=== PATIENT | male | born 1940 | race Caucasian/White ===

== ENCOUNTER 2016-07-20 05:18 | Inpatient (IN) | payer MEDICARE, BC ==
[2016-07-20] MEDS: Lactated Ringers 1,000 ML IV SCH ×2 (06:13→11:42)
[2016-07-20] MEDS ORDERED: Thrombin (Bovine) 5,000 Unit Kit ONE (06:53)
[2016-07-20] MEDS ORDERED: Bupivacaine 0.5%/EPINEPHrine 1:200,000 50 ML MDV ONE (06:54)
[2016-07-20] MEDS ORDERED: Povidone-Iodine 10% Soln 118.25 ML Bottle ONE (06:54)
[2016-07-20] MEDS ORDERED: Dexamethasone 4 MG/ML SDV ONE (07:16)
[2016-07-20] MEDS ORDERED: fentaNYL 250 MCG/5 ML SDV ONE ×2 (07:16→08:26)
[2016-07-20] MEDS ORDERED: Neostigmine Methylsulfate 1 MG/ML 5 ML Syringe ONE (07:16)
[2016-07-20] MEDS ORDERED: Propofol 200 MG/20 ML SDV ONE (07:16)
[2016-07-20] MEDS ORDERED: Ondansetron 4 MG/2 ML SDV ONE ×2 (07:16→08:34)
[2016-07-20] MEDS ORDERED: Rocuronium 50 MG/5 ML Vial ONE ×2 (07:16→07:43)
[2016-07-20] MEDS ORDERED: ceFAZolin 2 GM in Premix Bag 1 BAG IV ONE (07:30)
[2016-07-20] MEDS ORDERED: Lactated Ringers 1,000 ML ONE (08:09)
[2016-07-20] MEDS ORDERED: Magnesium Hydroxide 400 MG/5 ML Susp 30 ML Cup PO PRN (10:38)
[2016-07-20] MEDS ORDERED: diphenhydrAMINE 25 MG Cap PO PRN (10:38)
[2016-07-20] MEDS ORDERED: Naloxone 0.4 MG/ML SDV IVPUSH PRN (10:38)
[2016-07-20] MEDS ORDERED: Sennosides 8.6 MG Tab PO PRN (10:38)
[2016-07-20] MEDS ORDERED: Aluminum Hydroxide/Magnesium Hydroxide/Simethicone Susp 30 ML Cup PO PRN (10:38)
[2016-07-20] MEDS ORDERED: Zolpidem 5 MG Tab PO PRN (10:38)
[2016-07-20] MEDS ORDERED: ceFAZolin 2 GM in Sodium Chloride 0.9% 50 ML IV SCH ×2 (10:45→14:00)
[2016-07-20] MEDS ORDERED: fentaNYL 100 MCG/2 ML SDV IVPUSH ONE (10:48)
[2016-07-20] MEDS ORDERED: Meperidine PF 100 MG/ML Syringe IM ONE (10:49)
[2016-07-20] MEDS ORDERED: Morphine 4 MG/ML Syringe IVPUSH ONE (11:09)
[2016-07-20] MEDS: Acetaminophen/oxyCODONE 325-5 MG Tab PO PRN ×2 (12:35→17:09)
[2016-07-20] MEDS: Acetaminophen 650 MG in Premix Bag 1 BAG IV PRN (14:45)
--- NOTE | 2016-07-20 14:54 | OR ---
DATE OF PROCEDURE: 07/20/2016 PREOPERATIVE DIAGNOSIS: Central foraminal stenosis, C5-C6 and C6-C7. POSTOPERATIVE DIAGNOSIS: Central foraminal stenosis, C5-C6 and C6-C7. PROCEDURES: 1. Anterior cervical diskectomy and fusion, C5-C6 and C6-C7. 2. Interbody device placement with integrated plate, C5-C6 and C6-C7. 3. Use of operating microscope. ANESTHESIA: General endotracheal intubation. FLUIDS: Lactated Ringer solution. ESTIMATED BLOOD LOSS: 25 mL. COMPLICATIONS: None. SPECIMEN: None. DISCHARGE DISPOSITION: Stable to PACU. 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 INDICATIONS FOR THE PROCEDURE: The patient is well known to me, seen in the previous fall. He had undergone extensive nonoperative treatment. Preoperative imaging confirmed the above- mentioned diagnosis. Risks and benefits of the procedure were explained to the patient. Informed consent was obtained. DETAILS OF PROCEDURE: The patient was seen preoperatively by myself and the anesthesia staff in the preoperative holding area where the operative site was marked. He was brought to the operative suite by the anesthesia staff where general anesthesia was administered. Preoperative neuromonitoring leads were placed. Sterile Colon catheter was placed which was removed at the end of the case. The fluoroscopy unit as well as the operating microscope was then draped in a sterile manner. The patient's hair was clipped and then he was prepped and draped in a sterile manner. Time-out was called identifying the correct patient, correct procedure, the correct site, and antibiotics were begun with an appropriate period of time. Lateral fluoroscopy was then used to identify the C6-C7 disk space level. An incision was made in oblique fashion just starting at the medial edge of the sternocleidomastoid going medially approximately 3 cm. This was carried down to the subcutaneous layer and a small Weitlaner was used for traction. The Bovie electrocautery unit was used to incise the platysma. I then used blunt dissection to go down to the prevertebral space in medial to the carotid sheath. The Cloward was then used for retraction, I then identified the C5-C6 space under fluoroscopy and then went to the C6-C7 space. We then used a Shadow-Line retractor. I then cleared the disk space anteriorly and removed some osteophytes with a rongeur. I then used a knife to incise the disk space and then removed as much of as I could with the pituitary. Other bleeding was controlled by bipolar cautery as well as thrombin-soaked Gelfoam and FloSeal. I then used a curette to remove more of the disk as well as Kerrison rongeurs and pituitaries and then went down to the posterior osteophytes and then went through the posterior lips of the vertebral bodies down to the posterior longitudinal ligament. At that point, I then applied 2 small thrombin- soaked Gelfoam and then moved up to the C5-C6 level, did the same exposure down to the posterior longitudinal ligament. I then went back down to the C6-C7 level, exposed, and then used the operating microscope to remove some more bone for better exposure as well as and placed endplate carpentry for interbody placement. I then went through the posterior longitudinal ligament with a curette and then removed the remainder of the posterior longitudinal ligament as well as the lips of the vertebral bodies with a #2 Kerrison. I went up bilaterally with a 3-0 angled curette and then a nerve hook to confirm that the foramina were opened. I did with the obtuse disk material on the left side at both levels. After this had been accomplished and bleeding had been controlled, I then trialed up to an 8 and inserted an 8 implant at C6-C7 and then placed two 16 mm screws at C6-C7. After this had been accomplished, I performed the same procedure at the C5-C6 level except I placed a 7 implant with 14 mm screws. After this had been done, I took my final films and then copiously irrigated with 2 L of Betadine infused irrigation. I then controlled the bleeding under the longus colli medial edge with bipolar electrocautery. I then inserted the remainder with my FloSeal and then tapped it away with a Ray-Amaris. I then placed the drain going out of the lateral aspect of the wound. I closed the platysma with three 2-0 interrupted sutures, followed by Monocryl subcuticular suture, followed by Steri-Strips and then a sterile dressing with an OpSite. The patient was allowed to awaken from general anesthesia. The Colon was removed. Neuromonitoring leads were removed and then he was allowed to go to the PACU in stable condition. Mino Rivera DO /[id number]
--- NOTE | 2016-07-20 16:55 | PCM.PN ---
- General Info Date of Service: 07/20/16 Functional Status: Reports: pain controlled, ambulating - Review of Systems General: Denies: Weakness Musculoskeletal: Reports: neck pain Neurological: Denies: Numbness, Tingling Systems Review Comment:: no acute events since surgery. Moderate posterior neck pain that has been stable since surgery. No paresthesias in the upper or lower extremities. Vital signs have been stable. No difficulty with swallowing. He has been up and walk around without difficulty. - Patient Data Vitals - most recent: Last Vital Signs Temp 36.2 C 07/20/16 15:14 Pulse 60 07/20/16 15:14 Resp 16 07/20/16 15:14 BP 109/76 07/20/16 15:14 Pulse Ox 96 07/20/16 15:14 Weight - most recent: 133.129 kg I&O - last 24 hours: Intake & Output 07/20/16 07/20/16 07/20/16 06:59 14:59 22:59 Intake Total 1800 Output Total 0 Balance 1800 Med Orders - Current: Current Medications Al Hydroxide/Mg Hydroxide (Mag-Al Plus) 15 ml PO Q4H PRN PRN Reason: Indigestion Diazepam (Valium) 5 mg IVPUSH Q6H PRN PRN Reason: Spasms Diphenhydramine HCl (Benadryl) 25 mg PO Q4H PRN PRN Reason: Itching Lactated Ringer's (Ringers, Lactated) 1,000 mls @ 0 mls/hr IV ASDIRECTED [facility] PRN Reason: KVO Last Admin: 07/20/16 11:42 Dose: 25 mls/hr Acetaminophen 650 mg/ Premix 65 mls @ 400 mls/hr IV Q4H PRN PRN Reason: Pain Stop: 07/21/16 10:39 Last Admin: 07/20/16 14:45 Dose: 400 mls/hr Cefazolin Sodium 2 gm/ Sodium (Chloride) 50 mls @ 100 mls/hr IV Q8H [facility] Magnesium Hydroxide (Milk Of Magnesia) 30 ml PO DAILY PRN PRN Reason: Constipation Morphine Sulfate (Morphine) 4 mg IVPUSH Q2H PRN PRN Reason: Pain Non-Formulary Medication (Citalopram Hydrobromide [Celexa]) 20 mg PO DAILY [facility] Oxycodone/Acetaminophen (Percocet 325-5 Mg) 1 tab PO Q6H PRN PRN Reason: Pain Last Admin: 07/20/16 12:35 Dose: 1 tab Primidone (Mysoline) 100 mg PO BID [facility] Senna (Senna) 8.6 mg PO BID PRN PRN Reason: Constipation Simvastatin (Zocor) 20 mg PO BEDTIME [facility] Zolpidem Tartrate (Ambien) 5 mg PO BEDTIME PRN PRN Reason: Sleep Discontinued Medications Bupivacaine HCl/Epinephrine Bitart (Marcaine 0.5%/Epinephrine 1:200,000) Confirm Administered Dose 50 ml .ROUTE .STK-MED ONE Stop: 07/20/16 06:55 Dexamethasone (Dexamethasone) Confirm Administered Dose 4 mg .ROUTE .STK-MED ONE Stop: 07/20/16 07:17 Fentanyl (Sublimaze) Confirm Administered Dose 500 mcg .ROUTE .STK-MED ONE Stop: 07/20/16 07:17 Fentanyl (Sublimaze) Confirm Administered Dose 250 mcg .ROUTE .STK-MED ONE Stop: 07/20/16 08:27 Fentanyl (Sublimaze) 100 mcg IVPUSH ONETIME ONE Stop: 07/20/16 10:49 Last Admin: 07/20/16 10:57 Dose: 100 mcg Glycopyrrolate () Confirm Administered Dose 1 mg .ROUTE .STK-MED ONE Stop: 07/20/16 07:17 Cefazolin Sodium/Dextrose 2 gm (/ Premix) 50 mls @ 100 mls/hr IV ONETIME ONE Stop: 07/20/16 07:59 Last Admin: 07/20/16 07:18 Dose: 100 mls/hr Lactated Ringer's (Ringers, Lactated) Confirm Administered Dose 1,000 mls @ as directed .ROUTE .STK-MED ONE Stop: 07/20/16 08:10 Cefazolin Sodium 2 gm/ Sodium (Chloride) 50 mls @ 100 mls/hr IV Q8H [facility] Last Admin: 07/20/16 13:50 Dose: Not Given Meperidine HCl (Demerol) 100 mg IM ONETIME ONE Stop: 07/20/16 10:50 Last Admin: 07/20/16 10:58 Dose: 100 mg Morphine Sulfate (Morphine) 4 mg IVPUSH ONETIME ONE Stop: 07/20/16 11:10 Last Admin: 07/20/16 11:17 Dose: 4 mg Naloxone HCl (Narcan) 0.2 mg IVPUSH ONETIME PRN PRN Reason: Oversedation Stop: 07/20/16 10:39 Neostigmine Methylsulfate (Neostigmine) Confirm Administered Dose 5 mg .ROUTE .STK-MED ONE Stop: 07/20/16 07:17 Non-Formulary Medication (Simvastatin [Zocor]) 20 mg PO BEDTIME [facility] Ondansetron HCl (Zofran) Confirm Administered Dose 4 mg .ROUTE .STK-MED ONE Stop: 07/20/16 07:17 Ondansetron HCl (Zofran) Confirm Administered Dose 4 mg .ROUTE .STK-MED ONE Stop: 07/20/16 08:35 Povidone Iodine (Betadine 10% Soln) Confirm Administered Dose 1 ml .ROUTE .STK- MED ONE Stop: 07/20/16 06:55 Last Admin: 07/20/16 09:55 Dose: 30 ml Primidone (Mysoline) 100 mg PO BID [facility] Propofol (Diprivan 20 Ml) Confirm Administered Dose 200 mg .ROUTE .STK-MED ONE Stop: 07/20/16 07:17 Rocuronium [place] (Zemuron) Confirm Administered Dose 100 mg .ROUTE .STK-MED ONE Stop: 07/20/16 07:17 Rocuronium [place] (Zemuron) Confirm Administered Dose 50 mg .ROUTE .STK-MED ONE Stop: 07/20/16 07:44 Thrombin (Thrombin-Jmi) Confirm Administered Dose 10,000 unit .ROUTE .STK-MED ONE Stop: 07/20/16 06:54 Last Admin: 07/20/16 07:20 Dose: 10,000 unit - Exam Quality Assessment: No: supplemental oxygen General: alert, oriented, cooperative, no acute distress Neck: supple, other (anterior surgical site covered with dry intact dressing. He does have a drain in place with a small quantity of maroon blood draining) Lungs: Clear to auscultation, Normal respiratory effort Cardiovascular: Regular Rate, Regular Rhythm, No Murmurs Extremities: normal pulses, edema (mild pitting edema of left ankle, moderate pitting edema of right ankle) Skin: warm, dry Psy/Mental Status: alert, normal affect - Problem List Review Problem List Initiated/Reviewed/Updated: Yes - My Orders Last 24 Hours: My Active Orders 07/21/16 09:00 Citalopram Hydrobromide [Celexa] 20 mg PO DAILY - Plan Plan:: ASSESSMENT AND PLAN Status post cervical spine fusion - doing well postoperatively. Moderate pain but otherwise stable. No paresthesias. -Postop cares per surgical team Depression - chronic and stable. -Continue citalopram Status post gastric bypass surgery - no active issues. -Restart supplements when safe postoperatively Forest Singh M.D.
[2016-07-20] MEDS: ceFAZolin 2 GM in Sodium Chloride 0.9% 50 ML IV SCH ×2 (17:01→23:12)
[2016-07-20] MEDS: Acetaminophen/HYDROcodone 325-10 MG Tab PO PRN (20:18)
[2016-07-20] MEDS: Primidone 50 MG Tab PO SCH (20:19)
[2016-07-20] MEDS ORDERED: Primidone 50 MG Tab PO SCH (21:00)
[2016-07-20] MEDS ORDERED: Simvastatin 20 MG Tab PO SCH (21:00)
[2016-07-20] MEDS ORDERED: Non-Formulary Medication 1 Each (Simvastatin [Zocor] 20 MG) PO SCH ×2 (21:00)
[2016-07-20] MEDS: oxyCODONE 5 MG Tab PO PRN (21:21)
[2016-07-21] MEDS: oxyCODONE 5 MG Tab PO PRN ×2 (01:08→09:16)
[2016-07-21] MEDS: Morphine 4 MG/ML Syringe IVPUSH PRN ×3 (01:13→08:04)
[2016-07-21] MEDS: Acetaminophen 650 MG in Premix Bag 1 BAG IV PRN (02:46)
[2016-07-21] MEDS: Acetaminophen/HYDROcodone 325-10 MG Tab PO PRN ×2 (04:44→13:14)
[2016-07-21] MEDS: ceFAZolin 2 GM in Sodium Chloride 0.9% 50 ML IV SCH (08:06)
[2016-07-21] MEDS: Primidone 50 MG Tab PO SCH (08:18)
[2016-07-21] MEDS ORDERED: Non-Formulary Medication 1 Each (Citalopram Hydrobromide [Celexa] 20 MG) PO SCH (09:00)
[2016-07-21] MEDS ORDERED: Citalopram 20 MG Tab PO SCH (09:00)
[2016-07-21 10:47] VITALS: BP 123/79
--- NOTE | 2016-07-21 12:36 | PCM.DCSUM1 ---
Discharge Summary - Hospital Course Free Text/Narrative:: Matt is a 75 year old male who is POD 1 of a C5-C6, C6-C7 anterior discectomy and fusion. He is doing well. He noted some pain at night but has noted much improvement. He state that he is moving well with minimal pain at this time. He notes not other symptoms at this time. Pain is controlled with oral pain medication. He is receiving PT/OT and is tolerating well. - Discharge Data Discharge Date: 07/21/16 Discharge Disposition: Home, Self-Care 01 Condition: Good - Discharge Diagnosis/Problem(s) (1) Status post cervical spinal fusion SNOMED Code(s): 899194132, [id number] ICD Code: Z98.1 - ARTHRODESIS STATUS Status: Acute Current Visit: Yes Problem Details: C 5-6, C6-7 - Patient Summary/Data Consults: Consultations 07/20/16 10:38 Consult to Physician [CONS] Routine Consulting Provider: Forest Singh Call Completed to Consulting Physician: text Reason for Consult: med management OT Evaluation and Treatment [CONS] Routine Please Evaluate and Treat. OT Reason for Consult: Strengthening This query below is only for informational purposes and is not editable. PT Evaluation and Treatment [CONS] Routine Please Evaluate and Treat. PT Reason for Consult: Strengthening This query below is only for informational purposes and is not editable. - Patient Instructions Diet: Usual Diet as Tolerated Activity: As Tolerated, No Lifting Over 10 Pounds Driving: Do Not Drive Showering/Bathing: May Shower Wound/Incision Care: Keep Operative Site/Wound Site Clean and Dry Notify Provider of: Fever, Increased Pain, Swelling and Redness, Drainage, Nausea and/or Vomiting - Discharge Plan Prescriptions/Med Rec: oxyCODONE 5 mg PO Q6HR #120 tablet Home Medications: Home Meds Aspirin [Halfprin] 81 mg PO DAILY 02/03/15 [History] Cholecalciferol (Vitamin D3) [Vitamin D3] 2,000 unit PO DAILY 02/03/15 [History] Citalopram Hydrobromide [Celexa] 20 mg PO DAILY 02/03/15 [History] Cyanocobalamin (Vitamin B12) [Vitamin B12] 500 mcg PO DAILY 02/03/15 [History] Ferrous Sulfate 324 mg PO DAILY 02/03/15 [History] Hydrocodone/Acetaminophen [[place] 10-325] 1 tab PO Q4H PRN 02/03/15 [History] Multivitamin [Multi-Vitamin Daily] 1 tab PO DAILY 02/03/15 [History] Primidone [Mysoline] 100 mg PO BID 02/03/15 [History] Simvastatin [Zocor] 20 mg PO BEDTIME 02/03/15 [History] Calcium Citrate 200 mg PO DAILY 07/20/16 [History] Omeprazole Magnesium [Prilosec Otc] 20 mg PO DAILY 07/20/16 [History] Vitamin B Complex/Folic Acid [Vitamin B-100 Complex] 0.4 mg PO DAILY 07/20/16 [ History] oxyCODONE 5 mg PO Q6HR #120 tablet 07/21/16 [Rx] - Discharge Summary/Plan Comment Discharge Summary/Plan Comment: At this time the patient is doing well. He is to be discharged today. SUNITA drain was removed. New dressing was placed. He is to follow up with the ortho clinic in 1 month. He is to take his norco and oxycodone as prescribed. He was educated to increase fluids to avoid constipation. - Patient Data Vitals - Most Recent: Last Vital Signs Temp 36.8 C 07/21/16 10:40 Pulse 75 07/21/16 10:40 Resp 16 07/21/16 10:40 BP 123/79 07/21/16 10:40 Pulse Ox 93 L 07/21/16 10:40 Weight - Most Recent: 293 lb 7.987 oz I&O - Last 24 hours: Intake & Output 07/20/16 07/21/16 07/21/16 22:59 06:59 14:59 Intake Total 480 600 50 Output Total 25 40 Balance 455 560 50 Med Orders - Current: Current Medications Hydrocodone Bitart/Acetaminophen ([place] 325-10 Mg) 1 tab PO Q8H PRN PRN Reason: Pain Last Admin: 07/21/16 04:44 Dose: 1 tab Al Hydroxide/Mg Hydroxide (Mag-Al Plus) 15 ml PO Q4H PRN PRN Reason: Indigestion Citalopram Hydrobromide (Celexa) 20 mg PO DAILY [facility] Last Admin: 07/21/16 08:18 Dose: 20 mg Diazepam (Valium) 5 mg IVPUSH Q6H PRN PRN Reason: Spasms Diphenhydramine HCl (Benadryl) 25 mg PO Q4H PRN PRN Reason: Itching Lactated Ringer's (Ringers, Lactated) 1,000 mls @ 0 mls/hr IV ASDIRECTED [facility] PRN Reason: KVO Last Admin: 07/20/16 11:42 Dose: 25 mls/hr Cefazolin Sodium 2 gm/ Sodium (Chloride) 50 mls @ 100 mls/hr IV Q8H [facility] Last Admin: 07/21/16 08:06 Dose: 100 mls/hr Magnesium Hydroxide (Milk Of Magnesia) 30 ml PO DAILY PRN PRN Reason: Constipation Morphine Sulfate (Morphine) 4 mg IVPUSH Q2H PRN PRN Reason: Pain Last Admin: 07/21/16 08:04 Dose: 4 mg Oxycodone HCl (Oxycodone) 5 mg PO Q4H PRN PRN Reason: Pain Last Admin: 07/21/16 09:16 Dose: 5 mg Primidone (Mysoline) 100 mg PO BID [facility] Last Admin: 07/21/16 08:18 Dose: 100 mg Senna (Senna) 8.6 mg PO BID PRN PRN Reason: Constipation Last Admin: 07/20/16 21:21 Dose: 8.6 mg Simvastatin (Zocor) 20 mg PO BEDTIME [facility] Last Admin: 07/20/16 20:19 Dose: 20 mg Zolpidem Tartrate (Ambien) 5 mg PO BEDTIME PRN PRN Reason: Sleep Last Admin: 07/20/16 22:30 Dose: 5 mg Discontinued Medications Bupivacaine HCl/Epinephrine Bitart (Marcaine 0.5%/Epinephrine 1:200,000) Confirm Administered Dose 50 ml .ROUTE .STK-MED ONE Stop: 07/20/16 06:55 Dexamethasone (Dexamethasone) Confirm Administered Dose 4 mg .ROUTE .STK-MED ONE Stop: 07/20/16 07:17 Fentanyl (Sublimaze) Confirm Administered Dose 500 mcg .ROUTE .STK-MED ONE Stop: 07/20/16 07:17 Fentanyl (Sublimaze) Confirm Administered Dose 250 mcg .ROUTE .STK-MED ONE Stop: 07/20/16 08:27 Fentanyl (Sublimaze) 100 mcg IVPUSH ONETIME ONE Stop: 07/20/16 10:49 Last Admin: 07/20/16 10:57 Dose: 100 mcg Glycopyrrolate () Confirm Administered Dose 1 mg .ROUTE .STK-MED ONE Stop: 07/20/16 07:17 Cefazolin Sodium/Dextrose 2 gm (/ Premix) 50 mls @ 100 mls/hr IV ONETIME ONE Stop: 07/20/16 07:59 Last Admin: 07/20/16 07:18 Dose: 100 mls/hr Lactated Ringer's (Ringers, Lactated) Confirm Administered Dose 1,000 mls @ as directed .ROUTE .STK-MED ONE Stop: 07/20/16 08:10 Acetaminophen 650 mg/ Premix 65 mls @ 400 mls/hr IV Q4H PRN PRN Reason: Pain Stop: 07/21/16 10:39 Last Admin: 07/21/16 02:46 Dose: 400 mls/hr Cefazolin Sodium 2 gm/ Sodium (Chloride) 50 mls @ 100 mls/hr IV Q8H [facility] Last Admin: 07/20/16 13:50 Dose: Not Given Meperidine HCl (Demerol) 100 mg IM ONETIME ONE Stop: 07/20/16 10:50 Last Admin: 07/20/16 10:58 Dose: 100 mg Morphine Sulfate (Morphine) 4 mg IVPUSH ONETIME ONE Stop: 07/20/16 11:10 Last Admin: 07/20/16 11:17 Dose: 4 mg Naloxone HCl (Narcan) 0.2 mg IVPUSH ONETIME PRN PRN Reason: Oversedation Stop: 07/20/16 10:39 Neostigmine Methylsulfate (Neostigmine) Confirm Administered Dose 5 mg .ROUTE .STK-MED ONE Stop: 07/20/16 07:17 Non-Formulary Medication (Simvastatin [Zocor]) 20 mg PO BEDTIME [facility] Ondansetron HCl (Zofran) Confirm Administered Dose 4 mg .ROUTE .STK-MED ONE Stop: 07/20/16 07:17 Ondansetron HCl (Zofran) Confirm Administered Dose 4 mg .ROUTE .STK-MED ONE Stop: 07/20/16 08:35 Oxycodone/Acetaminophen (Percocet 325-5 Mg) 1 tab PO Q6H PRN PRN Reason: Pain Last Admin: 07/20/16 17:09 Dose: 1 tab Povidone Iodine (Betadine 10% Soln) Confirm Administered Dose 1 ml .ROUTE .STK- MED ONE Stop: 07/20/16 06:55 Last Admin: 07/20/16 09:55 Dose: 30 ml Primidone (Mysoline) 100 mg PO BID [facility] Propofol (Diprivan 20 Ml) Confirm Administered Dose 200 mg .ROUTE .STK-MED ONE Stop: 07/20/16 07:17 Rocuronium [place] (Zemuron) Confirm Administered Dose 100 mg .ROUTE .STK-MED ONE Stop: 07/20/16 07:17 Rocuronium [place] (Zemuron) Confirm Administered Dose 50 mg .ROUTE .STK-MED ONE Stop: 07/20/16 07:44 Thrombin (Thrombin-Jmi) Confirm Administered Dose 10,000 unit .ROUTE .STK-MED ONE Stop: 07/20/16 06:54 Last Admin: 07/20/16 07:20 Dose: 10,000 unit - Exam General: Reports: alert, oriented Cardiovascular: Reports: Regular Rate Extremities: Reports: no edema Skin: Reports: warm, dry, intact Wound/Incisions: Reports: healing well, dressing dry and intact, no drainage Neurological: Reports: no new focal deficit, normal gait, strength equal bilateral, reflexes equal bilateral Psy/Mental Status: Reports: alert, normal affect *Q Meaningful Use (DIS) - VTE *Q VTE Criteria *Q: - Stroke *Q Stroke Criteria *Q: - AMI *Q AMI Criteria *Q:
== END 2016-07-21 14:23 | disposition home or self-care (01) | DRG 473 ==
LOC: JP.MS 05:18 → JP.SDS 05:18 → EDSTATUS 07:30 → JP.MS 12:05
PROVIDERS: ADMIT Orthopaedic Surgery; ATTEND Orthopaedic Surgery
PROC: 0RG20A0 Fusion of 2 or more Cervical Vertebral Joints with Interbody Fusion Device, Anterior Approach, Anterior Column, Open Approach (ICD-10-PCS; principal; 2016-07-20)
PROC: 0RB30ZZ Excision of Cervical Vertebral Disc, Open Approach (ICD-10-PCS; principal; 2016-07-20)
DX: M48.02 Spinal stenosis, cervical region (principal); F32.9 Major depressive disorder, single episode, unspecified; Z79.891 Long term (current) use of opiate analgesic; Z98.84 Bariatric surgery status; K22.70 Barrett's esophagus without dysplasia; E55.9 Vitamin D deficiency, unspecified; G47.33 Obstructive sleep apnea (adult) (pediatric); Z87.891 Personal history of nicotine dependence; E78.00 Pure hypercholesterolemia, unspecified; Z96.651 Presence of right artificial knee joint; Z79.82 Long term (current) use of aspirin; Z88.1 Allergy status to other antibiotic agents
CPT/HCPCS: 76001; 97110-GP; 97116-GP; 97162-GP; 97165-GO; 97530-GP; 97535-GP; A9270-GY; C1713; J0131; J0690; J1100; J2175; J2270; J2405; J2704; J3010; J7050; J7120

== ENCOUNTER 2017-10-12 07:22 | Observation (INO) | payer MEDICARE, BC ==
[~2017-10-12 07:22] MED LIST: Povidone-Iodine 10% Soln 118.25 ML Bottle ONE
[2017-10-12] MEDS ORDERED: Acetaminophen 500 MG Tab PO ONE (07:30)
[2017-10-12] MEDS ORDERED: Scopolamine 1.5 MG Transdermal Patch TOP ONE (07:30)
[2017-10-12] MEDS ORDERED: ceFAZolin 2 GM in Sodium Chloride 0.9% 50 ML IV ONE (08:15)
[2017-10-12] MEDS ORDERED: ceFAZolin 2 GM in Premix Bag 1 BAG IV ONE (08:15)
[2017-10-12] MEDS: Scopolamine 1.5 MG Transdermal Patch TOP ONE ×2 (08:29→08:44)
[2017-10-12] MEDS: Acetaminophen 500 MG Tab PO ONE ×2 (08:29→08:43)
[2017-10-12] MEDS ORDERED: Ketamine 500 MG/5 ML MDV IV SCH (09:15)
[2017-10-12] MEDS ORDERED: Ropivacaine 49.25 ML, Ketorolac 30 MG, EPINEPHrine 0.5 MG, cloNIDine 80 MCG, Sodium Chl... INJECT ONE ×5 (09:15)
[2017-10-12] MEDS ORDERED: Propofol 200 MG/20 ML SDV ONE (09:29)
[2017-10-12] MEDS ORDERED: Midazolam 1 MG/ML 2 ML SDV ONE (09:29)
[2017-10-12] MEDS ORDERED: fentaNYL 100 MCG/2 ML SDV ONE (09:29)
[2017-10-12] MEDS ORDERED: Bupivacaine 0.75%/D5W 2 ML Amp ONE (09:31)
[2017-10-12] MEDS: Tranexamic Acid 1,000 MG in Sodium Chloride 0.9% 50 ML IV SCH ×2 (10:13→11:45)
[2017-10-12] MEDS ORDERED: Ketorolac 30 MG/ML SDV IVPUSH PRN (11:33)
[2017-10-12] MEDS ORDERED: Ondansetron 4 MG/2 ML SDV IVPUSH PRN (11:33)
[2017-10-12] MEDS ORDERED: diphenhydrAMINE 50 MG/ML SDV IVPUSH PRN (11:33)
[2017-10-12] MEDS ORDERED: Magnesium Hydroxide 400 MG/5 ML Susp 30 ML Cup PO PRN (11:33)
[2017-10-12] MEDS ORDERED: Naloxone 0.4 MG/ML SDV IVPUSH PRN (11:33)
[2017-10-12] MEDS ORDERED: Bisacodyl 5 MG Tab PO PRN (11:33)
[2017-10-12] MEDS ORDERED: Docusate Sodium 100 MG Cap PO PRN (11:33)
[2017-10-12] MEDS ORDERED: Zolpidem 5 MG Tab PO PRN (11:33)
[2017-10-12] MEDS ORDERED: Aluminum Hydroxide/Magnesium Hydroxide/Simethicone Susp 30 ML Cup PO PRN (11:33)
[2017-10-12] MEDS ORDERED: Acetaminophen/oxyCODONE 325-5 MG Tab PO PRN (11:33)
[2017-10-12] MEDS ORDERED: Sennosides 8.6 MG Tab PO PRN (11:33)
[2017-10-12] MEDS ORDERED: Lactated Ringers 1,000 ML IV SCH (11:45)
--- NOTE | 2017-10-12 13:20 | PCM.PN ---
- General Info Date of Service: 10/12/17 Functional Status: Reports: Pain Controlled - Review of Systems Systems Review Comment:: no acute events since his return from surgery. He has no pain in the right leg at this time in the right leg remains numb from anesthetic. He has slight sensation returning to the left leg. No complaints of shortness of breath or nausea. Vitals have been stable since return from surgery. - Patient Data Vitals - Most Recent: Last Vital Signs Temp 36.1 C 10/12/17 12:10 Pulse 72 10/12/17 12:10 Resp 11 L 10/12/17 12:10 BP 128/65 10/12/17 12:10 Pulse Ox 95 10/12/17 12:10 Weight - Most Recent: 125.645 kg I&O - Last 24 Hours: Intake & Output 10/11/17 10/12/17 10/12/17 22:59 06:59 14:59 Output Total 225 Balance -225 Lab Results Last 24 Hours: Laboratory Results - last 24 hr 10/12/17 Range/Units 07:47 Blood Type A POSITIVE Gel Antibody Screen Negative Nba Results Last 24 Hours: Microbiology 10/12/17 10:16 Gram Stain - Final Knee, Right Med Orders - Current: Current Medications Al Hydroxide/Mg Hydroxide (Mag-Al Plus) 30 ml PO Q4H PRN PRN Reason: Constipation Aspirin (Ecotrin) 325 mg PO DAILY [facility] Bisacodyl (Dulcolax) 10 mg PO DAILY PRN PRN Reason: Constipation Diphenhydramine HCl (Benadryl) 25 mg IVPUSH Q4H PRN PRN Reason: Itching Docusate Sodium (Colace) 100 mg PO BID PRN PRN Reason: Constipation Lactated Ringer's (Ringers, Lactated) 1,000 mls @ 100 mls/hr IV ASDIRECTED [facility] Ketorolac Tromethamine (Toradol) 30 mg IVPUSH Q8H PRN PRN Reason: Pain Magnesium Hydroxide (Milk Of Magnesia) 30 ml PO BID PRN PRN Reason: Constipation Morphine Sulfate (Morphine) 2 mg IVPUSH Q2H PRN PRN Reason: Pain Naloxone HCl (Narcan) 0.1 mg IVPUSH ONETIME PRN PRN Reason: Oversedation Ondansetron HCl (Zofran) 8 mg IVPUSH Q4H PRN PRN Reason: Nausea/Vomiting Oxycodone/Acetaminophen (Percocet 325-5 Mg) 2 tab PO Q4H PRN PRN Reason: Pain Pantoprazole Sodium (Protonix) 40 mg PO DAILY@0730 [facility] Senna (Senna) 8.6 mg PO BID PRN PRN Reason: Constipation Sodium Chloride (Saline Flush) 10 ml FLUSH DAILY [facility] Zolpidem Tartrate (Ambien) 5 mg PO BEDTIME PRN PRN Reason: Sleep Discontinued Medications Acetaminophen (Tylenol Extra Strength) 1,000 mg PO ONETIME ONE Stop: 10/12/17 07:31 Last Admin: 10/12/17 08:28 Dose: 1,000 mg Acetaminophen (Tylenol Extra Strength) 1,000 mg PO ONETIME ONE Stop: 10/12/17 08:31 Last Admin: 10/12/17 08:43 Dose: Not Given Bupivacaine HCl/Dextrose (Marcaine 0.75% Spinal) Confirm Administered Dose 2 ml .ROUTE .STK-MED ONE Stop: 10/12/17 09:32 Ropivacaine 49.25 ml/Ketorolac Tromethamine 30 mg/Epinephrine HCl 0.5 mg/ Clonidine HCl 80 mcg/ Sodium Chloride 48.45 ml 0 ml INJECT ONETIME ONE Stop: 10/12/17 09:16 Last Admin: 10/12/17 10:19 Dose: 100 ml Fentanyl (Sublimaze) Confirm Administered Dose 100 mcg .ROUTE .STK-MED ONE Stop: 10/12/17 09:30 Cefazolin Sodium 2 gm/ Sodium (Chloride) 50 mls @ 100 mls/hr IV ONETIME ONE Stop: 10/12/17 08:44 Last Admin: 10/12/17 09:29 Dose: 100 mls/hr Tranexamic Acid 1,000 mg/ (Sodium Chloride) 60 mls @ 240 mls/hr IV Q3H [facility] Stop: 10/12/17 12:29 Last Admin: 10/12/17 11:45 Dose: 240 mls/hr Ketamine HCl 100 mg/ Sodium (Chloride) 100 mls @ 24.6 mls/hr IV ASDIRECTED [facility] Ketamine HCl (Ketalar) 40 mg IV ASDIRECTED [facility] Midazolam HCl (Versed 1 Mg/Ml) Confirm Administered Dose 2 mg .ROUTE .STK-MED ONE Stop: 10/12/17 09:30 Povidone Iodine (Betadine 10% Soln) Confirm Administered Dose 1 ml .ROUTE .STK- MED ONE Stop: 10/12/17 07:02 Last Admin: 10/12/17 09:18 Dose: 30 ml Propofol (Diprivan 20 Ml) Confirm Administered Dose 200 mg .ROUTE .STK-MED ONE Stop: 10/12/17 09:30 Scopolamine (Transderm-Scop) 1.5 mg TOP ONETIME ONE Stop: 10/12/17 07:31 Last Admin: 10/12/17 08:28 Dose: 1.5 mg Scopolamine (Transderm-Scop) 1.5 mg TOP ONETIME ONE Stop: 10/12/17 08:16 Last Admin: 10/12/17 08:44 Dose: Not Given - Exam Quality Assessment: No: Supplemental Oxygen General: Alert, Oriented, Cooperative, No Acute Distress Lungs: Clear to Auscultation, Normal Respiratory Effort Cardiovascular: Regular Rate, Regular Rhythm. No: Murmurs GI/Abdominal Exam: Normal Bowel Sounds, Soft, No Distention Extremities: Pedal Edema (right foot), Other (right knee is wrapped in an Yasir wrap which is dry and intact. He does have an ice pack on the anterior right knee.) Skin: Warm, Dry Psy/Mental Status: Alert, Normal Affect - Problem List Review Problem List Initiated/Reviewed/Updated: Yes - My Orders Last 24 Hours: My Active Orders 10/12/17 21:00 Primidone [Mysoline] 100 mg PO BID Simvastatin [Zocor] 20 mg PO BEDTIME 10/13/17 09:00 Calcium Citrate [Calcium Citrate] 200 mg PO DAILY Cholecalciferol (Vitamin D3) [Vitamin D3] 2,000 unit PO DAILY Citalopram Hydrobromide [Celexa] 20 mg PO DAILY Cyanocobalamin (Vitamin B12) [Vitamin B12] 500 mcg PO DAILY Ferrous Sulfate [Ferrous Sulfate] 324 mg PO DAILY Multivitamin [Multi-Vitamin Daily] 1 tab PO DAILY Omeprazole Magnesium [Prilosec Otc] 20 mg PO DAILY Vitamin B Complex [B Complex] 1 each PO DAILY Vitamin B Complex/Folic Acid [Vitamin B-100 Complex] 0.4 mg PO DAILY - Plan Plan:: ASSESSMENT AND PLAN Right patellar dislocation - status post open synovectomy and retinacular reconstruction. Doing well postoperatively. -Postop cares per orthopedic service Chronic medical problems including hyperlipidemia, history of Johnathon-en-Y gastric bypass surgery and essential tremor are all stable at this time. His home medications have been ordered. Forest Singh M.D.
--- NOTE | 2017-10-12 13:53 | OR ---
DATE OF PROCEDURE: 10/12/2017 PREOPERATIVE DIAGNOSES: Right knee patella dislocation, status post right knee revision arthroplasty. POSTOPERATIVE DIAGNOSIS: Right knee patella dislocation, status post right knee revision arthroplasty. PROCEDURES PERFORMED: 1. Open full synovectomy. 2. Medial patellofemoral reconstruction. ANESTHESIA: Spinal plus conscious sedation. FLUIDS: Lactated Ringer solution. ESTIMATED BLOOD LOSS: 100 mL. COMPLICATIONS: None. SPECIMEN: Aerobic and anaerobic cultures. DISCHARGE DISPOSITION: Stable to PACU. INDICATIONS FOR THE PROCEDURE: The patient is well known to me. We had previously performed an anterior cervical diskectomy and fusion on him. I then saw him later, and he had unstable total knee. I did send him to Dr. Amrik Majano in [place] for revision arthroplasty, which he underwent. Unfortunately, he kept falling and was recently seen and found to have a patellar dislocation. It was my thought as well as the patient and his son's that he had dislocated probably as early as [address] Majano had recommended, what sounded like, a lateral release and tibial osteotomy. I did suggest that we could try to do a medial patellofemoral reconstruction, which I thought would have less morbidity and that, that would not preclude them from going on to the other surgery if necessary. Risks and benefits of the procedure were explained to the patient. Informed consent was obtained. DETAILS OF PROCEDURE: The patient was seen preoperatively by myself and the Anesthesia staff in the preoperative holding area, where the operative site was marked. He was brought to the operative suite by the Anesthesia staff, where spinal sedation and conscious sedation was administered. A well-padded tourniquet was placed on the right lower extremity, right thigh. The right lower extremity was then prepped and draped in a sterile manner. Time-out was called identifying the correct patient, the correct procedure, the correct site, and that antibiotics had been begun within the appropriate period of time. The right lower extremity was then exsanguinated. Tourniquet was raised to 300 mmHg and kept up for 38 minutes. I then went through the previous midline incision. Bleeding was controlled with Bovie electrocautery. I then mobilized the subcutaneous layer of the skin and the deep fascia. No open arthrotomy was seen and it appeared to have scarred over. I performed a medial parapatellar arthrotomy in the customary place along the quadriceps, medial patella, and medial to the patellar tendon, down to the level of tibial tubercle. I then exposed the proximal tibia medially with the Bovie electrocautery unit. I then performed a full synovectomy and then worked on debulking scar tissue. I believe that the patellar component that was in was the same as primary component, which would be expected as to avoid risk of refracture of the patella, but I did take 2 Ethibond sutures at the superior and inferior pole of the patella and performed [id number] in an area where I was able to overlap the medial retinaculum. This did not hold, and I tried this twice. Given that, that happened, what I did was, I pie-crusted the lateral retinaculum and then debulked a considerable portion of the synovium and retinaculum on the lateral side. This was done superiorly, lateral to the patella, and then inferiorly. I also removed soft tissue superior and inferior to the patella along and tried to make a plane where this would have been during the primary procedure, medial to the polyethylene on the patella. I then re- sutured with Ethibond. This tracked and held much better. I then used a 10 blade and then cut a significant portion of the overlapping medial retinaculum so that it would approximate properly without overlap. I was able to do this, and then we copiously irrigated with Betadine-infused irrigation and then closed the medial retinaculum with approximately 10 Ethibond [id number] sutures. I then reinforced the parapatellar arthrotomy with #1 STRATAFIX in a running manner. I then irrigated it again. We let down the tourniquet, and I applied 2 layers of mesh over the entirety of the medial and lateral retinaculum of the patella. I sewed the edges of this with #2 STRATAFIX, going all the way around the circumference of the mesh. Then, I used #2 STRATAFIX to go through the mesh and through the area of the arthrotomy. I then again irrigated with saline. I did apply Floseal inside the joint prior to closure. We then irrigated again and then closed with #2 STRATAFIX subcutaneously plus skin liv, followed by Betadine-soaked Adaptic, followed by a sterile dressing. The patient was then transferred to his hospital bed and taken to the PACU in a stable condition. Mino Rivera DO /[id number]
[2017-10-12] MEDS: Acetaminophen/HYDROcodone 325-10 MG Tab PO PRN ×3 (15:45→23:49)
[2017-10-12] MEDS: Morphine 2 MG/ML Syringe IVPUSH PRN ×2 (15:49→21:06)
[2017-10-12] MEDS: ceFAZolin 2 GM in Sodium Chloride 0.9% 50 ML IV SCH ×2 (16:32→23:47)
[2017-10-12] MEDS: Primidone 50 MG Tab PO SCH (21:08)
[2017-10-12] MEDS: Simvastatin 20 MG Tab PO SCH (21:09)
[2017-10-13] MEDS: Morphine 2 MG/ML Syringe IVPUSH PRN ×2 (02:57→10:36)
[2017-10-13] MEDS: Acetaminophen/HYDROcodone 325-10 MG Tab PO PRN ×4 (05:46→18:06)
[2017-10-13] MEDS ORDERED: Pantoprazole 40 MG Tab.CR PO SCH (07:30)
[2017-10-13] MEDS: ceFAZolin 2 GM in Sodium Chloride 0.9% 50 ML IV SCH (08:14)
[2017-10-13] MEDS: Cholecalciferol (Vitamin D3) 1,000 Unit Tab PO SCH (08:15)
[2017-10-13] MEDS: Aspirin 325 MG Tab.EC PO SCH (08:15)
[2017-10-13] MEDS: Multivitamins with Iron/Calcium/Folic Acid/Minerals Tab PO SCH (08:16)
[2017-10-13] MEDS: Primidone 50 MG Tab PO SCH ×2 (08:18→21:29)
[2017-10-13] MEDS: Ferrous Sulfate 325 MG Tab PO SCH (08:18)
[2017-10-13] MEDS: Vitamin B Complex Tab PO SCH (08:19)
[2017-10-13] MEDS: Pantoprazole 40 MG Tab.CR PO SCH (08:19)
[2017-10-13] MEDS: Cyanocobalamin (Vitamin B12) 1,000 MCG Tab PO SCH (08:19)
[2017-10-13] MEDS: Citalopram 20 MG Tab PO SCH (08:20)
[2017-10-13] MEDS: Calcium Carbonate/Vitamin D3 1500 MG-400 Units Tab PO SCH (08:20)
--- NOTE | 2017-10-13 08:35 | PCM.DCSUM1 ---
<Forest Singh - Last Filed: 10/14/17 19:44> Discharge Summary - Hospital Course Diagnosis: Stroke: No - Discharge Data Discharge Date: 10/14/17 Discharge Disposition: Home, W Home Health Agency 06 Condition: Good - Discharge Diagnosis/Problem(s) (1) Dislocation of patella, right, closed SNOMED Code(s): 176900926 ICD Code: S83.004A - UNSPECIFIED DISLOCATION OF RIGHT PATELLA, INITIAL ENCOUNTER Status: Acute Qualifiers: Encounter type: initial encounter Qualified Code(s): S83.004A - Unspecified dislocation of right patella, initial encounter - Patient Summary/Data Consults: Consultations 10/12/17 11:33 Consult to Physician [CONS] Routine Consulting Provider: Forest Singh Courtesy Call Completed to Consulting Physician: Yes OT Evaluation and Treatment [CONS] Routine Please Evaluate and Treat. OT Reason for Consult: Strengthening This query below is only for informational purposes and is not editable. PT Evaluation and Treatment [CONS] Routine Please Evaluate and Treat. PT Reason for Consult: Strengthening This query below is only for informational purposes and is not editable. Respiratory Care Assess and Treatment [CONS] Routine Comment: Physician Instructions: Post-op Pneumonia Prevention Hospital Course: Matt was admitted for surgical management of a right patellar dislocation status post a revision of his right total knee. He had an uneventful surgery and his initial postop period was unremarkable. The morning after admission he had an increased pain in the right knee and had difficulty bearing weight. Pain medications were adjusted and he was transitioned observation status. He continued to work with physical therapy. Over the course of the day after surgery and into the morning of discharge he has made significant improvements. His pain control has improved dramatically. He is able to work with physical therapy with minimal limitations. He feels much better on the day of discharge and is comfortable going home at this time. The plan is for him to have home care provide physical therapy to help ease his transition home after the surgery. - Discharge Plan Prescriptions/Med Rec: Acetaminophen/HYDROcodone [Canton 325-10 MG] 1 tab PO Q6HR #120 tablet Aspirin [Ecotrin] 325 mg PO DAILY #30 tab.ec Home Medications: Home Meds Aspirin [Halfprin] 81 mg PO DAILY 02/03/15 [History] Cholecalciferol (Vitamin D3) [Vitamin D3] 2,000 unit PO DAILY 02/03/15 [History] Citalopram Hydrobromide [Celexa] 20 mg PO DAILY 02/03/15 [History] Cyanocobalamin (Vitamin B12) [Vitamin B12] 500 mcg PO DAILY 02/03/15 [History] Ferrous Sulfate 324 mg PO DAILY 02/03/15 [History] Multivitamin [Multi-Vitamin Daily] 1 tab PO DAILY 02/03/15 [History] Primidone [Mysoline] 100 mg PO BID 02/03/15 [History] Simvastatin [Zocor] 20 mg PO BEDTIME 02/03/15 [History] Calcium Citrate 200 mg PO DAILY 07/20/16 [History] Omeprazole Magnesium [Prilosec Otc] 20 mg PO DAILY 07/20/16 [History] Vitamin B Complex/Folic Acid [Vitamin B-100 Complex] 0.4 mg PO DAILY 07/20/16 [ History] Hydrocodone/Acetaminophen [Hydrocodon-Acetaminophn 10-325] 1 tab PO Q4H PRN 09/13 [History] Vitamin B Complex [B Complex] 1 each PO DAILY 10/10/17 [History] Acetaminophen/HYDROcodone [Canton 325-10 MG] 1 tab PO Q6HR #120 tablet 10/13/17 [ Rx] Aspirin [Ecotrin] 325 mg PO DAILY #30 tab.ec 10/13/17 [Rx] Referrals: Mino Rivera DO [Physician] - 11/03/17 10:45 am ([facility] - [facility] Oct 18, 2017 at 9:45 am) - Patient Data Vitals - Most Recent: Last Vital Signs Temp 35.5 C 10/14/17 11:27 Pulse 75 10/14/17 11:27 Resp 16 10/14/17 11:27 BP 126/69 10/14/17 11:27 Pulse Ox 95 10/14/17 11:27 I&O - Last 24 hours: Intake & Output 10/14/17 10/14/17 10/14/17 06:59 14:59 22:59 Intake Total 840 Output Total 1250 Balance -1250 840 Lab Results - Last 24 hrs: Laboratory Results - last 24 hr 10/14/17 Range/Units 05:50 WBC 6.6 (4.5-11.0) K/uL RBC 3.79 L (4.30-5.90) M/uL Hgb 11.3 L (12.0-15.0) g/dL Hct 34.4 L (40.0-54.0) % MCV 91 (80-98) fL MCH 30 (27-31) pg MCHC 33 (32-36) % Plt Count 206 (150-400) K/uL Neut % (Auto) 71 H (36-66) % Lymph % (Auto) 9 L (24-44) % [place] % (Auto) 13 H (2-6) % Eos % (Auto) 7 H (2-4) % Baso % (Auto) 0 (0-1) % ISABELA Results - Last 24 hrs: Microbiology 10/12/17 10:16 Gram Stain - Final Knee, Right Wound Culture - Preliminary NO GROWTH AFTER 2 DAYS Anaerobic Culture - Preliminary NO GROWTH AFTER 2 DAYS Med Orders - Current: Current Medications Discontinued Medications Acetaminophen (Tylenol Extra Strength) 1,000 mg PO ONETIME ONE Stop: 10/12/17 07:31 Last Admin: 10/12/17 08:28 Dose: 1,000 mg Acetaminophen (Tylenol Extra Strength) 1,000 mg PO ONETIME ONE Stop: 10/12/17 08:31 Last Admin: 10/12/17 08:43 Dose: Not Given Hydrocodone Bitart/Acetaminophen (Canton 325-10 Mg) 1 tab PO Q4H PRN PRN Reason: PAIN Last Admin: 10/14/17 14:17 Dose: 1 tab Al Hydroxide/Mg Hydroxide (Mag-Al Plus) 30 ml PO Q4H PRN PRN Reason: Constipation Aspirin (Ecotrin) 325 mg PO DAILY [facility] Last Admin: 10/14/17 08:13 Dose: 325 mg Bisacodyl (Dulcolax) 10 mg PO DAILY PRN PRN Reason: Constipation Bupivacaine HCl/Dextrose (Marcaine 0.75% Spinal) Confirm Administered Dose 2 ml .ROUTE .STK-MED ONE Stop: 10/12/17 09:32 Calcium Carbonate (Caltrate 600+D 1500 Mg-400 Units) 1 tab PO DAILY [facility] Last Admin: 10/14/17 08:14 Dose: Not Given Cholecalciferol (Vitamin D3) 2,000 units PO DAILY [facility] Last Admin: 10/14/17 08:15 Dose: Not Given Citalopram Hydrobromide (Celexa) 20 mg PO DAILY [facility] Last Admin: 10/14/17 08:13 Dose: 20 mg Ropivacaine 49.25 ml/Ketorolac Tromethamine 30 mg/Epinephrine HCl 0.5 mg/ Clonidine HCl 80 mcg/ Sodium Chloride 48.45 ml 0 ml INJECT ONETIME ONE Stop: 10/12/17 09:16 Last Admin: 10/12/17 10:19 Dose: 100 ml Cyanocobalamin (Vitamin B12) 500 mcg PO DAILY [facility] Last Admin: 10/14/17 08:15 Dose: Not Given Diphenhydramine HCl (Benadryl) 25 mg IVPUSH Q4H PRN PRN Reason: Itching Docusate Sodium (Colace) 100 mg PO BID PRN PRN Reason: Constipation Fentanyl (Sublimaze) Confirm Administered Dose 100 mcg .ROUTE .STK-MED ONE Stop: 10/12/17 09:30 Ferrous Sulfate (Ferrous Sulfate) 325 mg PO DAILY [facility] Last Admin: 10/14/17 08:14 Dose: Not Given Cefazolin Sodium 2 gm/ Sodium (Chloride) 50 mls @ 100 mls/hr IV ONETIME ONE Stop: 10/12/17 08:44 Last Admin: 10/12/17 09:29 Dose: 100 mls/hr Tranexamic Acid 1,000 mg/ (Sodium Chloride) 60 mls @ 240 mls/hr IV Q3H [facility] Stop: 10/12/17 12:29 Last Admin: 10/12/17 11:45 Dose: 240 mls/hr Ketamine HCl 100 mg/ Sodium (Chloride) 100 mls @ 24.6 mls/hr IV ASDIRECTED [facility] Lactated Ringer's (Ringers, Lactated) 1,000 mls @ 100 mls/hr IV ASDIRECTED [facility] Last Admin: 10/12/17 23:46 Dose: 100 mls/hr Cefazolin Sodium 2 gm/ Sodium (Chloride) 50 mls @ 100 mls/hr IV Q8H [facility] Stop: 10/13/17 08:29 Last Admin: 10/13/17 08:14 Dose: 100 mls/hr Ketamine HCl (Ketalar) 40 mg IV ASDIRECTED [facility] Ketorolac Tromethamine (Toradol) 30 mg IVPUSH Q8H PRN PRN Reason: Pain Last Admin: 10/12/17 22:34 Dose: 30 mg Magnesium Hydroxide (Milk Of Magnesia) 30 ml PO BID PRN PRN Reason: Constipation Midazolam HCl (Versed 1 Mg/Ml) Confirm Administered Dose 2 mg .ROUTE .STK-MED ONE Stop: 10/12/17 09:30 Morphine Sulfate (Morphine) 2 mg IVPUSH Q2H PRN PRN Reason: Pain Last Admin: 10/13/17 10:36 Dose: 2 mg Multivitamins/Minerals (Thera M Plus) 1 tab PO DAILY [facility] Last Admin: 10/14/17 08:14 Dose: Not Given Naloxone HCl (Narcan) 0.1 mg IVPUSH ONETIME PRN PRN Reason: Oversedation Ondansetron HCl (Zofran) 8 mg IVPUSH Q4H PRN PRN Reason: Nausea/Vomiting Oxycodone HCl (Oxycodone) 5 mg PO Q4H PRN PRN Reason: Pain Last Admin: 10/14/17 11:38 Dose: 5 mg Pantoprazole Sodium (Protonix) 40 mg PO DAILY@0730 [facility] Last Admin: 10/14/17 07:33 Dose: 40 mg Povidone Iodine (Betadine 10% Soln) Confirm Administered Dose 1 ml .ROUTE .STK- MED ONE Stop: 10/12/17 07:02 Last Admin: 10/12/17 09:18 Dose: 30 ml Primidone (Mysoline) 100 mg PO BID [facility] Last Admin: 10/14/17 08:13 Dose: 100 mg Propofol (Diprivan 20 Ml) Confirm Administered Dose 200 mg .ROUTE .STK-MED ONE Stop: 10/12/17 09:30 Scopolamine (Transderm-Scop) 1.5 mg TOP ONETIME ONE Stop: 10/12/17 07:31 Last Admin: 10/12/17 08:28 Dose: 1.5 mg Scopolamine (Transderm-Scop) 1.5 mg TOP ONETIME ONE Stop: 10/12/17 08:16 Last Admin: 10/12/17 08:44 Dose: Not Given Senna (Senna) 8.6 mg PO BID PRN PRN Reason: Constipation Simvastatin (Zocor) 20 mg PO BEDTIME [facility] Last Admin: 10/13/17 21:29 Dose: 20 mg Sodium Chloride (Saline Flush) 10 ml FLUSH DAILY [facility] Last Admin: 10/14/17 08:14 Dose: Not Given Vitamin B Complex (Vitamin B Complex) 1 each PO DAILY [facility] Last Admin: 10/14/17 08:15 Dose: Not Given Zolpidem Tartrate (Ambien) 5 mg PO BEDTIME PRN PRN Reason: Sleep - Exam Quality Assessment: Denies: Supplemental Oxygen General: Reports: Alert, Oriented, Cooperative, No Acute Distress Lungs: Reports: Normal Respiratory Effort GI/Abdominal Exam: Soft, No Distention Extremities: Pedal Edema Wound/Incisions: Reports: Dressing Dry and Intact Psy/Mental Status: Reports: Alert, Normal Affect <Mino Rivera - Last Filed: 10/17/17 09:59> Discharge Summary - Hospital Course Brief History: 76 yo male s/p r knee tka revision patella dislocation, chronic Diagnosis: Stroke: No - Discharge Data Discharge Date: 10/14/17 - Patient Summary/Data Operative Procedure(s) Performed: Open right knee synovectomy, retinactular reconstruction Consults: Consultations 10/12/17 11:33 Consult to Physician [CONS] Routine Consulting Provider: Forest Singh Call Completed to Consulting Physician: Yes OT Evaluation and Treatment [CONS] Routine Please Evaluate and Treat. OT Reason for Consult: Strengthening This query below is only for informational purposes and is not editable. PT Evaluation and Treatment [CONS] Routine Please Evaluate and Treat. PT Reason for Consult: Strengthening This query below is only for informational purposes and is not editable. Respiratory Care Assess and Treatment [CONS] Routine Comment: Physician Instructions: Post-op Pneumonia Prevention - Patient Instructions Diet: Usual Diet as Tolerated Activity: As Tolerated, Cough & Deep Breathe, No Strenuous Activities Driving: Do Not Drive Showering/Bathing: May Shower Wound/Incision Care: Keep Operative Site/Wound Site Clean and Dry Notify Provider of: Fever, Increased Pain, Swelling and Redness, Drainage, Nausea and/or Vomiting - Discharge Plan *PRESCRIPTION DRUG MONITORING PROGRAM REVIEWED*: Not Applicable *COPY OF PRESCRIPTION DRUG MONITORING REPORT IN PATIENT EWA: Not Applicable - Patient Data Vitals - Most Recent: Last Vital Signs Temp 97 F 10/13/17 07:31 Pulse 79 10/13/17 07:31 Resp 16 10/13/17 07:31 BP 121/83 10/13/17 07:31 Pulse Ox 95 08/16/18 08:22 Weight - Most Recent: 277 lb I&O - Last 24 hours: Intake & Output 10/12/17 10/13/17 10/13/17 22:59 06:59 14:59 Intake Total 931 50 Output Total 132 302 Balance 799 -252 Lab Results - Last 24 hrs: Laboratory Results - last 24 hr 10/12/17 10/13/17 10/13/17 Range/Units 07:47 04:45 04:45 WBC 6.3 (4.5-11.0) K/uL RBC 3.70 L (4.30-5.90) M/uL Hgb 10.8 L D (12.0-15.0) g/dL Hct 33.9 L (40.0-54.0) % MCV 92 (80-98) fL MCH 29 (27-31) pg MCHC 32 (32-36) % Plt Count 211 (150-400) K/uL Neut % (Auto) 79 H (36-66) % Lymph % (Auto) 9 L (24-44) % [place] % (Auto) 9 H (2-6) % Eos % (Auto) 4 (2-4) % Baso % (Auto) 0 (0-1) % Sodium 141 (140-148) mmol/L Potassium 5.2 (3.6-5.2) mmol/L Chloride 106 (100-108) mmol/L Carbon Dioxide 31 (21-32) mmol/L Anion Gap 3.8 L (5.0-14.0) mmol/L BUN 16 (7-18) mg/dL Creatinine 0.8 (0.8-1.3) mg/dL Est Cr Clr Drug Dosing 92.76 mL/min Estimated GFR (MDRD) > 60 (>60) Glucose 101 (74-106) mg/dL Calcium 8.4 L (8.5-10.1) mg/dL Total Bilirubin 0.3 (0.2-1.0) mg/dL AST 27 (15-37) U/L ALT 16 (12-78) U/L Alkaline Phosphatase 66 (46-116) U/L Total Protein 5.6 L (6.4-8.2) g/dL Albumin 2.6 L (3.4-5.0) g/dL Globulin 3.0 (2.3-3.5) g/dL Albumin/Globulin Ratio 0.9 L (1.2-2.2) Blood Type A POSITIVE Gel Antibody Screen Negative ISABELA Results - Last 24 hrs: Microbiology 10/12/17 10:16 Gram Stain - Final Knee, Right Wound Culture - Preliminary NO GROWTH AFTER 1 DAY Anaerobic Culture - Preliminary NO GROWTH AFTER 1 DAY Med Orders - Current: Current Medications Hydrocodone Bitart/Acetaminophen ([place] 325-10 Mg) 1 tab PO Q4H PRN PRN Reason: PAIN Last Admin: 10/13/17 05:46 Dose: 1 tab Al Hydroxide/Mg Hydroxide (Mag-Al Plus) 30 ml PO Q4H PRN PRN Reason: Constipation Aspirin (Ecotrin) 325 mg PO DAILY [facility] Last Admin: 10/13/17 08:15 Dose: 325 mg Bisacodyl (Dulcolax) 10 mg PO DAILY PRN PRN Reason: Constipation Calcium Carbonate (Caltrate 600+D 1500 Mg-400 Units) 1 tab PO DAILY [facility] Last Admin: 10/13/17 08:20 Dose: 1 tab Cholecalciferol (Vitamin D3) 2,000 units PO DAILY [facility] Last Admin: 10/13/17 08:15 Dose: 2,000 units Citalopram Hydrobromide (Celexa) 20 mg PO DAILY [facility] Last Admin: 10/13/17 08:20 Dose: 20 mg Cyanocobalamin (Vitamin B12) 500 mcg PO DAILY [facility] Last Admin: 10/13/17 08:19 Dose: 500 mcg Diphenhydramine HCl (Benadryl) 25 mg IVPUSH Q4H PRN PRN Reason: Itching Docusate Sodium (Colace) 100 mg PO BID PRN PRN Reason: Constipation Ferrous Sulfate (Ferrous Sulfate) 325 mg PO DAILY [facility] Last Admin: 10/13/17 08:18 Dose: 325 mg Lactated Ringer's (Ringers, Lactated) 1,000 mls @ 100 mls/hr IV ASDIRECTED [facility] Last Admin: 10/12/17 23:46 Dose: 100 mls/hr Cefazolin Sodium 2 gm/ Sodium (Chloride) 50 mls @ 100 mls/hr IV Q8H [facility] Stop: 10/13/17 08:29 Last Admin: 10/13/17 08:14 Dose: 100 mls/hr Ketorolac Tromethamine (Toradol) 30 mg IVPUSH Q8H PRN PRN Reason: Pain Last Admin: 10/12/17 22:34 Dose: 30 mg Magnesium Hydroxide (Milk Of Magnesia) 30 ml PO BID PRN PRN Reason: Constipation Morphine Sulfate (Morphine) 2 mg IVPUSH Q2H PRN PRN Reason: Pain Last Admin: 10/13/17 02:57 Dose: 2 mg Multivitamins/Minerals (Thera M Plus) 1 tab PO DAILY [facility] Last Admin: 10/13/17 08:16 Dose: 1 tab Naloxone HCl (Narcan) 0.1 mg IVPUSH ONETIME PRN PRN Reason: Oversedation Ondansetron HCl (Zofran) 8 mg IVPUSH Q4H PRN PRN Reason: Nausea/Vomiting Pantoprazole Sodium (Protonix) 40 mg PO DAILY@0730 [facility] Last Admin: 10/13/17 08:19 Dose: 40 mg Primidone (Mysoline) 100 mg PO BID [facility] Last Admin: 10/13/17 08:18 Dose: 100 mg Senna (Senna) 8.6 mg PO BID PRN PRN Reason: Constipation Simvastatin (Zocor) 20 mg PO BEDTIME [facility] Last Admin: 10/12/17 21:09 Dose: 20 mg Sodium Chloride (Saline Flush) 10 ml FLUSH DAILY [facility] Vitamin B Complex (Vitamin B Complex) 1 each PO DAILY [facility] Last Admin: 10/13/17 08:19 Dose: 1 each Zolpidem Tartrate (Ambien) 5 mg PO BEDTIME PRN PRN Reason: Sleep Discontinued Medications Acetaminophen (Tylenol Extra Strength) 1,000 mg PO ONETIME ONE Stop: 10/12/17 07:31 Last Admin: 10/12/17 08:28 Dose: 1,000 mg Acetaminophen (Tylenol Extra Strength) 1,000 mg PO ONETIME ONE Stop: 10/12/17 08:31 Last Admin: 10/12/17 08:43 Dose: Not Given Bupivacaine HCl/Dextrose (Marcaine 0.75% Spinal) Confirm Administered Dose 2 ml .ROUTE .STK-MED ONE Stop: 10/12/17 09:32 Ropivacaine 49.25 ml/Ketorolac Tromethamine 30 mg/Epinephrine HCl 0.5 mg/ Clonidine HCl 80 mcg/ Sodium Chloride 48.45 ml 0 ml INJECT ONETIME ONE Stop: 10/12/17 09:16 Last Admin: 10/12/17 10:19 Dose: 100 ml Fentanyl (Sublimaze) Confirm Administered Dose 100 mcg .ROUTE .STK-MED ONE Stop: 10/12/17 09:30 Cefazolin Sodium 2 gm/ Sodium (Chloride) 50 mls @ 100 mls/hr IV ONETIME ONE Stop: 10/12/17 08:44 Last Admin: 10/12/17 09:29 Dose: 100 mls/hr Tranexamic Acid 1,000 mg/ (Sodium Chloride) 60 mls @ 240 mls/hr IV Q3H [facility] Stop: 10/12/17 12:29 Last Admin: 10/12/17 11:45 Dose: 240 mls/hr Ketamine HCl 100 mg/ Sodium (Chloride) 100 mls @ 24.6 mls/hr IV ASDIRECTED [facility] Ketamine HCl (Ketalar) 40 mg IV ASDIRECTED [facility] Midazolam HCl (Versed 1 Mg/Ml) Confirm Administered Dose 2 mg .ROUTE .STK-MED ONE Stop: 10/12/17 09:30 Povidone Iodine (Betadine 10% Soln) Confirm Administered Dose 1 ml .ROUTE .STK- MED ONE Stop: 10/12/17 07:02 Last Admin: 10/12/17 09:18 Dose: 30 ml Propofol (Diprivan 20 Ml) Confirm Administered Dose 200 mg .ROUTE .STK-MED ONE Stop: 10/12/17 09:30 Scopolamine (Transderm-Scop) 1.5 mg TOP ONETIME ONE Stop: 10/12/17 07:31 Last Admin: 10/12/17 08:28 Dose: 1.5 mg Scopolamine (Transderm-Scop) 1.5 mg TOP ONETIME ONE Stop: 10/12/17 08:16 Last Admin: 10/12/17 08:44 Dose: Not Given
[2017-10-13] MEDS: Sodium Chloride 0.9% 10 ML Syringe FLUSH SCH (09:08)
--- NOTE | 2017-10-13 13:21 | CR ---
Right knee Comparison: 2 days prior. The patient is status post knee arthroplasty. There is been relocation of the dislocated patella. The tibial and femoral components appear well aligned.
--- NOTE | 2017-10-13 14:25 | PCM.PN ---
- General Info Date of Service: 10/13/17 Functional Status: Denies: Pain Controlled - Review of Systems General: Denies: Fever Musculoskeletal: Reports: Joint Pain (right knee) Systems Review Comment:: there were no acute events overnight. Patient has not had any fevers. He was able to ambulate last night without much pain but this morning had fairly severe pain in the right knee with ambulation. He does not feel safe going home with this degree of pain. He does not report shortness of breath and otherwise feels okay. - Patient Data Vitals - Most Recent: Last Vital Signs Temp 36.2 C 10/13/17 11:58 Pulse 74 10/13/17 11:58 Resp 16 10/13/17 11:58 BP 132/71 10/13/17 11:58 Pulse Ox 94 L 10/13/17 11:58 Weight - Most Recent: 125.645 kg I&O - Last 24 Hours: Intake & Output 10/12/17 10/13/17 10/13/17 22:59 06:59 14:59 Intake Total 931 50 240 Output Total 132 302 100 Balance 799 -252 140 Lab Results Last 24 Hours: Laboratory Results - last 24 hr 10/13/17 10/13/17 Range/Units 04:45 04:45 WBC 6.3 (4.5-11.0) K/uL RBC 3.70 L (4.30-5.90) M/uL Hgb 10.8 L D (12.0-15.0) g/dL Hct 33.9 L (40.0-54.0) % MCV 92 (80-98) fL MCH 29 (27-31) pg MCHC 32 (32-36) % Plt Count 211 (150-400) K/uL Neut % (Auto) 79 H (36-66) % Lymph % (Auto) 9 L (24-44) % [place] % (Auto) 9 H (2-6) % Eos % (Auto) 4 (2-4) % Baso % (Auto) 0 (0-1) % Sodium 141 (140-148) mmol/L Potassium 5.2 (3.6-5.2) mmol/L Chloride 106 (100-108) mmol/L Carbon Dioxide 31 (21-32) mmol/L Anion Gap 3.8 L (5.0-14.0) mmol/L BUN 16 (7-18) mg/dL Creatinine 0.8 (0.8-1.3) mg/dL Est Cr Clr Drug Dosing 92.76 mL/min Estimated GFR (MDRD) > 60 (>60) Glucose 101 (74-106) mg/dL Calcium 8.4 L (8.5-10.1) mg/dL Total Bilirubin 0.3 (0.2-1.0) mg/dL AST 27 (15-37) U/L ALT 16 (12-78) U/L Alkaline Phosphatase 66 (46-116) U/L Total Protein 5.6 L (6.4-8.2) g/dL Albumin 2.6 L (3.4-5.0) g/dL Globulin 3.0 (2.3-3.5) g/dL Albumin/Globulin Ratio 0.9 L (1.2-2.2) Nba Results Last 24 Hours: Microbiology 10/12/17 10:16 Gram Stain - Final Knee, Right Wound Culture - Preliminary NO GROWTH AFTER 1 DAY Anaerobic Culture - Preliminary NO GROWTH AFTER 1 DAY Med Orders - Current: Current Medications Hydrocodone Bitart/Acetaminophen ([place] 325-10 Mg) 1 tab PO Q4H PRN PRN Reason: PAIN Last Admin: 10/13/17 13:17 Dose: 1 tab Al Hydroxide/Mg Hydroxide (Mag-Al Plus) 30 ml PO Q4H PRN PRN Reason: Constipation Aspirin (Ecotrin) 325 mg PO DAILY [facility] Last Admin: 10/13/17 08:15 Dose: 325 mg Bisacodyl (Dulcolax) 10 mg PO DAILY PRN PRN Reason: Constipation Calcium Carbonate (Caltrate 600+D 1500 Mg-400 Units) 1 tab PO DAILY [facility] Last Admin: 10/13/17 08:20 Dose: 1 tab Cholecalciferol (Vitamin D3) 2,000 units PO DAILY [facility] Last Admin: 10/13/17 08:15 Dose: 2,000 units Citalopram Hydrobromide (Celexa) 20 mg PO DAILY [facility] Last Admin: 10/13/17 08:20 Dose: 20 mg Cyanocobalamin (Vitamin B12) 500 mcg PO DAILY [facility] Last Admin: 10/13/17 08:19 Dose: 500 mcg Diphenhydramine HCl (Benadryl) 25 mg IVPUSH Q4H PRN PRN Reason: Itching Docusate Sodium (Colace) 100 mg PO BID PRN PRN Reason: Constipation Ferrous Sulfate (Ferrous Sulfate) 325 mg PO DAILY [facility] Last Admin: 10/13/17 08:18 Dose: 325 mg Lactated Ringer's (Ringers, Lactated) 1,000 mls @ 100 mls/hr IV ASDIRECTED [facility] Last Admin: 10/12/17 23:46 Dose: 100 mls/hr Ketorolac Tromethamine (Toradol) 30 mg IVPUSH Q8H PRN PRN Reason: Pain Last Admin: 10/12/17 22:34 Dose: 30 mg Magnesium Hydroxide (Milk Of Magnesia) 30 ml PO BID PRN PRN Reason: Constipation Morphine Sulfate (Morphine) 2 mg IVPUSH Q2H PRN PRN Reason: Pain Last Admin: 10/13/17 10:36 Dose: 2 mg Multivitamins/Minerals (Thera M Plus) 1 tab PO DAILY [facility] Last Admin: 10/13/17 08:16 Dose: 1 tab Naloxone HCl (Narcan) 0.1 mg IVPUSH ONETIME PRN PRN Reason: Oversedation Ondansetron HCl (Zofran) 8 mg IVPUSH Q4H PRN PRN Reason: Nausea/Vomiting Oxycodone HCl (Oxycodone) 5 mg PO Q4H PRN PRN Reason: Pain Pantoprazole Sodium (Protonix) 40 mg PO DAILY@0730 [facility] Last Admin: 10/13/17 08:19 Dose: 40 mg Primidone (Mysoline) 100 mg PO BID [facility] Last Admin: 10/13/17 08:18 Dose: 100 mg Senna (Senna) 8.6 mg PO BID PRN PRN Reason: Constipation Simvastatin (Zocor) 20 mg PO BEDTIME [facility] Last Admin: 10/12/17 21:09 Dose: 20 mg Sodium Chloride (Saline Flush) 10 ml FLUSH DAILY [facility] Last Admin: 10/13/17 09:08 Dose: Not Given Vitamin B Complex (Vitamin B Complex) 1 each PO DAILY [facility] Last Admin: 10/13/17 08:19 Dose: 1 each Zolpidem Tartrate (Ambien) 5 mg PO BEDTIME PRN PRN Reason: Sleep Discontinued Medications Acetaminophen (Tylenol Extra Strength) 1,000 mg PO ONETIME ONE Stop: 10/12/17 07:31 Last Admin: 10/12/17 08:28 Dose: 1,000 mg Acetaminophen (Tylenol Extra Strength) 1,000 mg PO ONETIME ONE Stop: 10/12/17 08:31 Last Admin: 10/12/17 08:43 Dose: Not Given Bupivacaine HCl/Dextrose (Marcaine 0.75% Spinal) Confirm Administered Dose 2 ml .ROUTE .STK-MED ONE Stop: 10/12/17 09:32 Ropivacaine 49.25 ml/Ketorolac Tromethamine 30 mg/Epinephrine HCl 0.5 mg/ Clonidine HCl 80 mcg/ Sodium Chloride 48.45 ml 0 ml INJECT ONETIME ONE Stop: 10/12/17 09:16 Last Admin: 10/12/17 10:19 Dose: 100 ml Fentanyl (Sublimaze) Confirm Administered Dose 100 mcg .ROUTE .STK-MED ONE Stop: 10/12/17 09:30 Cefazolin Sodium 2 gm/ Sodium (Chloride) 50 mls @ 100 mls/hr IV ONETIME ONE Stop: 10/12/17 08:44 Last Admin: 10/12/17 09:29 Dose: 100 mls/hr Tranexamic Acid 1,000 mg/ (Sodium Chloride) 60 mls @ 240 mls/hr IV Q3H [facility] Stop: 10/12/17 12:29 Last Admin: 10/12/17 11:45 Dose: 240 mls/hr Ketamine HCl 100 mg/ Sodium (Chloride) 100 mls @ 24.6 mls/hr IV ASDIRECTED [facility] Cefazolin Sodium 2 gm/ Sodium (Chloride) 50 mls @ 100 mls/hr IV Q8H [facility] Stop: 10/13/17 08:29 Last Admin: 10/13/17 08:14 Dose: 100 mls/hr Ketamine HCl (Ketalar) 40 mg IV ASDIRECTED [facility] Midazolam HCl (Versed 1 Mg/Ml) Confirm Administered Dose 2 mg .ROUTE .STK-MED ONE Stop: 10/12/17 09:30 Povidone Iodine (Betadine 10% Soln) Confirm Administered Dose 1 ml .ROUTE .STK- MED ONE Stop: 10/12/17 07:02 Last Admin: 10/12/17 09:18 Dose: 30 ml Propofol (Diprivan 20 Ml) Confirm Administered Dose 200 mg .ROUTE .STK-MED ONE Stop: 10/12/17 09:30 Scopolamine (Transderm-Scop) 1.5 mg TOP ONETIME ONE Stop: 10/12/17 07:31 Last Admin: 10/12/17 08:28 Dose: 1.5 mg Scopolamine (Transderm-Scop) 1.5 mg TOP ONETIME ONE Stop: 10/12/17 08:16 Last Admin: 10/12/17 08:44 Dose: Not Given - Exam Quality Assessment: No: Supplemental Oxygen General: Alert, Oriented, Cooperative, No Acute Distress Lungs: Normal Respiratory Effort GI/Abdominal Exam: Soft, No Distention Extremities: Pedal Edema (right leg below the knee), Other (right knee with intact surgical dressing over the incision) Skin: Warm, Dry Psy/Mental Status: Alert, Normal Affect - Problem List Review Problem List Initiated/Reviewed/Updated: Yes - My Orders Last 24 Hours: My Active Orders 10/12/17 21:00 Primidone [Mysoline] 100 mg PO BID Simvastatin [Zocor] 20 mg PO BEDTIME 10/13/17 09:00 Calcium Carbonate/Vitamin D3 [Caltrate 600+D 1500 MG-400 Units] 1 tab PO DAILY Cholecalciferol (Vitamin D3) [Vitamin D3] 2,000 units PO DAILY Citalopram [Celexa] 20 mg PO DAILY Cyanocobalamin (Vitamin B12) [Vitamin B12] 500 mcg PO DAILY Ferrous Sulfate 325 mg PO DAILY Multivitamins w-Iron/Ca/FA/Min [Thera M Plus] 1 tab PO DAILY Vitamin B Complex 1 each PO DAILY 10/13/17 14:22 Patient Status [ADT] Routine - Plan Plan:: ASSESSMENT AND PLAN Right patellar dislocation - status post open synovectomy and retinacular reconstruction. increased pain especially with ambulation today. Having a fair amount of difficulty with ambulation and does not feel safe going home at this time. -pain medication has been adjusted -additional Postop cares per orthopedic service Chronic medical problems including hyperlipidemia, history of Johnathon-en-Y gastric bypass surgery and essential tremor are all stable at this time. His home medications have been ordered. Disposition - he has been transitioned observation status today but I would expect that he will be able to go home tomorrow. Forest Singh M.D.
[2017-10-13] MEDS: oxyCODONE 5 MG Tab PO PRN ×2 (15:19→21:33)
[2017-10-13] MEDS: Simvastatin 20 MG Tab PO SCH (21:29)
[2017-10-14] MEDS: oxyCODONE 5 MG Tab PO PRN ×2 (07:33→11:38)
[2017-10-14] MEDS: Pantoprazole 40 MG Tab.CR PO SCH (07:33)
[2017-10-14] MEDS: Primidone 50 MG Tab PO SCH (08:13)
[2017-10-14] MEDS: Citalopram 20 MG Tab PO SCH (08:13)
[2017-10-14] MEDS: Aspirin 325 MG Tab.EC PO SCH (08:13)
[2017-10-14] MEDS: Sodium Chloride 0.9% 10 ML Syringe FLUSH SCH (08:14)
[2017-10-14] MEDS: Calcium Carbonate/Vitamin D3 1500 MG-400 Units Tab PO SCH (08:14)
[2017-10-14] MEDS: Multivitamins with Iron/Calcium/Folic Acid/Minerals Tab PO SCH (08:14)
[2017-10-14] MEDS: Ferrous Sulfate 325 MG Tab PO SCH (08:14)
[2017-10-14] MEDS: Vitamin B Complex Tab PO SCH (08:15)
[2017-10-14] MEDS: Cholecalciferol (Vitamin D3) 1,000 Unit Tab PO SCH (08:15)
[2017-10-14] MEDS: Cyanocobalamin (Vitamin B12) 1,000 MCG Tab PO SCH (08:15)
[2017-10-14] MEDS: Acetaminophen/HYDROcodone 325-10 MG Tab PO PRN ×2 (08:17→14:17)
[2017-10-14 11:29] VITALS: BP 126/69
--- NOTE | 2017-10-14 13:19 | PCM.DCSUM1 ---
Discharge Summary - Hospital Course Brief History: 76 yo male s/p r knee tka revision patella dislocation, chronic Diagnosis: Stroke: No - Discharge Data Discharge Date: 10/14/17 Discharge Disposition: Home, W Home Health Agency 06 Condition: Good - Discharge Diagnosis/Problem(s) (1) Dislocation of patella, right, closed SNOMED Code(s): 460105767 ICD Code: S83.004A - UNSPECIFIED DISLOCATION OF RIGHT PATELLA, INITIAL ENCOUNTER Status: Acute Current Visit: No Qualifiers: Encounter type: initial encounter Qualified Code(s): S83.004A - Unspecified dislocation of right patella, initial encounter - Patient Summary/Data Operative Procedure(s) Performed: Open right knee synovectomy, retinactular reconstruction Consults: Consultations 10/12/17 11:33 Consult to Physician [CONS] Routine Consulting Provider: Forest Singh Call Completed to Consulting Physician: Yes OT Evaluation and Treatment [CONS] Routine Please Evaluate and Treat. OT Reason for Consult: Strengthening This query below is only for informational purposes and is not editable. PT Evaluation and Treatment [CONS] Routine Please Evaluate and Treat. PT Reason for Consult: Strengthening This query below is only for informational purposes and is not editable. Respiratory Care Assess and Treatment [CONS] Routine Comment: Physician Instructions: Post-op Pneumonia Prevention - Patient Instructions Diet: Usual Diet as Tolerated Activity: As Tolerated, Cough & Deep Breathe, No Strenuous Activities Driving: Do Not Drive Showering/Bathing: May Shower Wound/Incision Care: Keep Operative Site/Wound Site Clean and Dry Notify Provider of: Fever, Increased Pain, Swelling and Redness, Drainage, Nausea and/or Vomiting - Discharge Plan *PRESCRIPTION DRUG MONITORING PROGRAM REVIEWED*: Not Applicable *COPY OF PRESCRIPTION DRUG MONITORING REPORT IN PATIENT EWA: Not Applicable Prescriptions/Med Rec: Acetaminophen/HYDROcodone [[place] 325-10 MG] 1 tab PO Q6HR #120 tablet Aspirin [Ecotrin] 325 mg PO DAILY #30 tab.ec Home Medications: Home Meds Aspirin [Halfprin] 81 mg PO DAILY 02/03/15 [History] Cholecalciferol (Vitamin D3) [Vitamin D3] 2,000 unit PO DAILY 02/03/15 [History] Citalopram Hydrobromide [Celexa] 20 mg PO DAILY 02/03/15 [History] Cyanocobalamin (Vitamin B12) [Vitamin B12] 500 mcg PO DAILY 02/03/15 [History] Ferrous Sulfate 324 mg PO DAILY 02/03/15 [History] Multivitamin [Multi-Vitamin Daily] 1 tab PO DAILY 02/03/15 [History] Primidone [Mysoline] 100 mg PO BID 02/03/15 [History] Simvastatin [Zocor] 20 mg PO BEDTIME 02/03/15 [History] Calcium Citrate 200 mg PO DAILY 07/20/16 [History] Omeprazole Magnesium [Prilosec Otc] 20 mg PO DAILY 07/20/16 [History] Vitamin B Complex/Folic Acid [Vitamin B-100 Complex] 0.4 mg PO DAILY 07/20/16 [ History] Hydrocodone/Acetaminophen [Hydrocodon-Acetaminophn 10-325] 1 tab PO Q4H PRN 09/13 [History] Vitamin B Complex [B Complex] 1 each PO DAILY 10/10/17 [History] Acetaminophen/HYDROcodone [[place] 325-10 MG] 1 tab PO Q6HR #120 tablet 10/13/17 [ Rx] Aspirin [Ecotrin] 325 mg PO DAILY #30 tab.ec 10/13/17 [Rx] Referrals: Mino Rivera DO [Physician] - 11/03/17 10:45 am ([facility] - [facility] Oct 18, 2017 at 9:45 am) - Discharge Summary/Plan Comment DC Time >30 min.: No - Patient Data Vitals - Most Recent: Last Vital Signs Temp 35.5 C 10/14/17 11:27 Pulse 75 10/14/17 11:27 Resp 16 10/14/17 11:27 BP 126/69 10/14/17 11:27 Pulse Ox 95 10/14/17 11:27 Weight - Most Recent: 125.645 kg I&O - Last 24 hours: Intake & Output 10/13/17 10/14/17 10/14/17 22:59 06:59 14:59 Intake Total 600 840 Output Total 800 1250 Balance -200 -1250 840 Lab Results - Last 24 hrs: Laboratory Results - last 24 hr 10/14/17 Range/Units 05:50 WBC 6.6 (4.5-11.0) K/uL RBC 3.79 L (4.30-5.90) M/uL Hgb 11.3 L (12.0-15.0) g/dL Hct 34.4 L (40.0-54.0) % MCV 91 (80-98) fL MCH 30 (27-31) pg MCHC 33 (32-36) % Plt Count 206 (150-400) K/uL Neut % (Auto) 71 H (36-66) % Lymph % (Auto) 9 L (24-44) % [place] % (Auto) 13 H (2-6) % Eos % (Auto) 7 H (2-4) % Baso % (Auto) 0 (0-1) % ISABELA Results - Last 24 hrs: Microbiology 10/12/17 10:16 Gram Stain - Final Knee, Right Wound Culture - Preliminary NO GROWTH AFTER 2 DAYS Anaerobic Culture - Preliminary NO GROWTH AFTER 2 DAYS Med Orders - Current: Current Medications Hydrocodone Bitart/Acetaminophen ([place] 325-10 Mg) 1 tab PO Q4H PRN PRN Reason: PAIN Last Admin: 10/14/17 08:17 Dose: 1 tab Al Hydroxide/Mg Hydroxide (Mag-Al Plus) 30 ml PO Q4H PRN PRN Reason: Constipation Aspirin (Ecotrin) 325 mg PO DAILY [facility] Last Admin: 10/14/17 08:13 Dose: 325 mg Bisacodyl (Dulcolax) 10 mg PO DAILY PRN PRN Reason: Constipation Calcium Carbonate (Caltrate 600+D 1500 Mg-400 Units) 1 tab PO DAILY [facility] Last Admin: 10/14/17 08:14 Dose: Not Given Cholecalciferol (Vitamin D3) 2,000 units PO DAILY [facility] Last Admin: 10/14/17 08:15 Dose: Not Given Citalopram Hydrobromide (Celexa) 20 mg PO DAILY [facility] Last Admin: 10/14/17 08:13 Dose: 20 mg Cyanocobalamin (Vitamin B12) 500 mcg PO DAILY [facility] Last Admin: 10/14/17 08:15 Dose: Not Given Diphenhydramine HCl (Benadryl) 25 mg IVPUSH Q4H PRN PRN Reason: Itching Docusate Sodium (Colace) 100 mg PO BID PRN PRN Reason: Constipation Ferrous Sulfate (Ferrous Sulfate) 325 mg PO DAILY [facility] Last Admin: 10/14/17 08:14 Dose: Not Given Lactated Ringer's (Ringers, Lactated) 1,000 mls @ 100 mls/hr IV ASDIRECTED [facility] Last Admin: 10/12/17 23:46 Dose: 100 mls/hr Ketorolac Tromethamine (Toradol) 30 mg IVPUSH Q8H PRN PRN Reason: Pain Last Admin: 10/12/17 22:34 Dose: 30 mg Magnesium Hydroxide (Milk Of Magnesia) 30 ml PO BID PRN PRN Reason: Constipation Morphine Sulfate (Morphine) 2 mg IVPUSH Q2H PRN PRN Reason: Pain Last Admin: 10/13/17 10:36 Dose: 2 mg Multivitamins/Minerals (Thera M Plus) 1 tab PO DAILY [facility] Last Admin: 10/14/17 08:14 Dose: Not Given Naloxone HCl (Narcan) 0.1 mg IVPUSH ONETIME PRN PRN Reason: Oversedation Ondansetron HCl (Zofran) 8 mg IVPUSH Q4H PRN PRN Reason: Nausea/Vomiting Oxycodone HCl (Oxycodone) 5 mg PO Q4H PRN PRN Reason: Pain Last Admin: 10/14/17 11:38 Dose: 5 mg Pantoprazole Sodium (Protonix) 40 mg PO DAILY@0730 [facility] Last Admin: 10/14/17 07:33 Dose: 40 mg Primidone (Mysoline) 100 mg PO BID [facility] Last Admin: 10/14/17 08:13 Dose: 100 mg Senna (Senna) 8.6 mg PO BID PRN PRN Reason: Constipation Simvastatin (Zocor) 20 mg PO BEDTIME [facility] Last Admin: 10/13/17 21:29 Dose: 20 mg Sodium Chloride (Saline Flush) 10 ml FLUSH DAILY [facility] Last Admin: 10/14/17 08:14 Dose: Not Given Vitamin B Complex (Vitamin B Complex) 1 each PO DAILY [facility] Last Admin: 10/14/17 08:15 Dose: Not Given Zolpidem Tartrate (Ambien) 5 mg PO BEDTIME PRN PRN Reason: Sleep Discontinued Medications Acetaminophen (Tylenol Extra Strength) 1,000 mg PO ONETIME ONE Stop: 10/12/17 07:31 Last Admin: 10/12/17 08:28 Dose: 1,000 mg Acetaminophen (Tylenol Extra Strength) 1,000 mg PO ONETIME ONE Stop: 10/12/17 08:31 Last Admin: 10/12/17 08:43 Dose: Not Given Bupivacaine HCl/Dextrose (Marcaine 0.75% Spinal) Confirm Administered Dose 2 ml .ROUTE .STK-MED ONE Stop: 10/12/17 09:32 Ropivacaine 49.25 ml/Ketorolac Tromethamine 30 mg/Epinephrine HCl 0.5 mg/ Clonidine HCl 80 mcg/ Sodium Chloride 48.45 ml 0 ml INJECT ONETIME ONE Stop: 10/12/17 09:16 Last Admin: 10/12/17 10:19 Dose: 100 ml Fentanyl (Sublimaze) Confirm Administered Dose 100 mcg .ROUTE .STK-MED ONE Stop: 10/12/17 09:30 Cefazolin Sodium 2 gm/ Sodium (Chloride) 50 mls @ 100 mls/hr IV ONETIME ONE Stop: 10/12/17 08:44 Last Admin: 10/12/17 09:29 Dose: 100 mls/hr Tranexamic Acid 1,000 mg/ (Sodium Chloride) 60 mls @ 240 mls/hr IV Q3H [facility] Stop: 10/12/17 12:29 Last Admin: 10/12/17 11:45 Dose: 240 mls/hr Ketamine HCl 100 mg/ Sodium (Chloride) 100 mls @ 24.6 mls/hr IV ASDIRECTED [facility] Cefazolin Sodium 2 gm/ Sodium (Chloride) 50 mls @ 100 mls/hr IV Q8H [facility] Stop: 10/13/17 08:29 Last Admin: 10/13/17 08:14 Dose: 100 mls/hr Ketamine HCl (Ketalar) 40 mg IV ASDIRECTED [facility] Midazolam HCl (Versed 1 Mg/Ml) Confirm Administered Dose 2 mg .ROUTE .STK-MED ONE Stop: 10/12/17 09:30 Povidone Iodine (Betadine 10% Soln) Confirm Administered Dose 1 ml .ROUTE .STK- MED ONE Stop: 10/12/17 07:02 Last Admin: 10/12/17 09:18 Dose: 30 ml Propofol (Diprivan 20 Ml) Confirm Administered Dose 200 mg .ROUTE .STK-MED ONE Stop: 10/12/17 09:30 Scopolamine (Transderm-Scop) 1.5 mg TOP ONETIME ONE Stop: 10/12/17 07:31 Last Admin: 10/12/17 08:28 Dose: 1.5 mg Scopolamine (Transderm-Scop) 1.5 mg TOP ONETIME ONE Stop: 10/12/17 08:16 Last Admin: 10/12/17 08:44 Dose: Not Given
== END 2017-10-14 14:34 | disposition home health service (06) ==
LOC: JP.SDS 07:22 → JP.MS 11:33 → JP.SDS 10-13 14:22 → JP.MS 10-13 14:22
PROVIDERS: ADMIT Orthopaedic Surgery; ATTEND Orthopaedic Surgery
DX: S83.004A Unspecified dislocation of right patella, initial encounter (principal); Z79.82 Long term (current) use of aspirin; Z79.899 Other long term (current) drug therapy; E78.00 Pure hypercholesterolemia, unspecified; M19.90 Unspecified osteoarthritis, unspecified site; E66.9 Obesity, unspecified; Z68.35 Body mass index [BMI] 35.0-35.9, adult; E53.8 Deficiency of other specified B group vitamins; F32.9 Major depressive disorder, single episode, unspecified; Z87.891 Personal history of nicotine dependence; W19.XXXA Unspecified fall, initial encounter
CPT/HCPCS: 27335; 27420; 36415; 73560; 80053; 85025; 86850; 86900; 86901; 87070; 87075; 87205; 94762; 97110; 97116; 97140; 97162; 97165; 97530; 97535; A9270; C1781; J0171; J0690; J0735; J1885; J2250; J2270; J2704; J2795; J3010; J7050; J7120

== ENCOUNTER 2018-03-23 08:26 | Day surgery (SDC) | payer MEDICARE, BC ==
[2018-03-23] MEDS ORDERED: Dextrose 5%-Lactated Ringers 1,000 ML IV SCH (09:30)
--- NOTE | 2018-03-23 10:34 | PCM.OPNOTE ---
- General Post-Op/Procedure Note Date of Surgery/Procedure: 03/23/18 Operative Procedure(s): Elective electrical cardioversion Pre Op Diagnosis: Atrial fibrillation Post-Op Diagnosis: Same Anesthesia Technique: Moderate Sedation Primary Surgeon: Giovanni Jones Anesthesia Provider: Leon Robledo Complications: None Condition: Good Free Text/Narrative:: Mr. Padilla is a 77-year-old gentleman who was brought into the patient centered care specialist unit today for elective electrical cardioversion of atrial fibrillation. He is been in atrial fibrillation over the past few months and has now had adequate anticoagulation over the past month. EKG obtained prior to the procedure shows atrial fibrillation with controlled ventricular response. He has been nothing by mouth since midnight. Risks and goals of procedure reviewed with patient and he gave informed consent to proceed. He was brought back to the postanesthesia recovery unit and was given IV sedation with propofol by Mr. Robledo from the anesthesia service. After adequate sedation was achieved he was converted to sinus rhythm using 200 J of energy delivered in a synchronized fashion. He converted to sinus rhythm and was noted to have frequent premature atrial complexes. He will be discharged home with instructions for no driving or use of power tools or heavy equipment over the next 24 hours. Follow-up appointment should be scheduled with Dr. Lee with in one week and an EKG should be obtained at the time of follow-up appointment.
[2018-03-23 11:13] VITALS: BP 107/52
== END 2018-03-23 11:00 | disposition home or self-care (01) ==
LOC: JP.SDS 08:26
PROVIDERS: ATTEND Hospitalist
DX: I48.91 Unspecified atrial fibrillation (principal); G47.33 Obstructive sleep apnea (adult) (pediatric); Z79.01 Long term (current) use of anticoagulants
CPT/HCPCS: 36415; 80048; 83735; 84100; 92960; 93005; 93010

== ENCOUNTER 2019-02-08 08:08 | Day surgery (SDC) | payer MEDICARE, BC ==
[~2019-02-08 08:08] MED LIST changes: +Midazolam 1 MG/ML 2 ML SDV ONE; -Povidone-Iodine 10% Soln 118.25 ML Bottle ONE; +Propofol 200 MG/20 ML SDV ONE; +fentaNYL 100 MCG/2 ML SDV ONE
[2019-02-08] MEDS ORDERED: Dextrose 5%-Lactated Ringers 1,000 ML IV SCH (08:40)
[2019-02-08] MEDS ORDERED: Pantoprazole 40 MG Vial IVPUSH ONE (09:56)
[2019-02-08 11:22] VITALS: BP 127/73; PULSE 81
--- NOTE | 2019-02-15 08:54 | OR ---
DATE OF PROCEDURE: 02/08/2019 SURGEON: Brendan Rivera MD PREOPERATIVE DIAGNOSES: 1. Episodes of lightheadedness and falling. 2. Epigastric discomfort and dysphagia status post Johnathon-en-Y gastric bypass. POSTOPERATIVE DIAGNOSES: 1. Episodes of lightheadedness and falling. 2. Epigastric discomfort and dysphagia status post Johnathon-en-Y gastric bypass. 3. 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 OPERATIVE PROCEDURE: Upper GI endoscopy with biopsy of gastric pouch for CLOtest. ANESTHESIA: IV sedation. INDICATION FOR PROCEDURE: A 78-year-old status post Johnathon-en-Y gastric bypass presenting with ongoing epigastric pain and dysphagia. He presently is on Nexium 40 mg a day. He was also having some problems with falling, and we wanted to get him in and make sure that it was not low hemoglobin or other metabolic disturbances that might be contributing to that. Plan is to proceed with upper GI endoscopy with biopsies and/or dilation as indicated. Potential risks including bleeding and perforation were discussed, and the patient wishes to proceed. DETAILS OF PROCEDURE: The patient was taken to the operating room and placed in a left lateral decubitus position. IV sedation was administered, after which the upper GI endoscope was passed orally through the length of the esophagus into the gastric pouch, from there through the gastrojejunostomy roughly 20 cm into the Johnathon limb. Findings included normal hypopharynx, larynx, upper esophageal sphincter, esophageal body, and EG junction. The gastric pouch, however, was diffusely quite reddened and edematous. This extended up to and included the gastrojejunostomy. Beyond that, the Johnathon limb was unremarkable. There were no true erosions or ulcers noted on the exam. Biopsies were obtained from the gastric pouch, sent for CLOtest for H. pylori. Minimal bleeding from the biopsy sites was seen, and the procedure then concluded. The patient was noted on labs to have slightly low albumin of 3.4, total protein was in the normal range at 6.8. Of note, his hemoglobin was 13.3, and ferritin, B12, and folate levels were all normal or above normal indicating that he was probably not having any significant bleeding from the present visualized pathology. With regard to the patient's pouch gastritis, he is already on 40 mg a day of Nexium, and we will add Carafate 500 mg dissolved in a med cup type volume of water 4 times a day on an empty stomach, and we will have him see Amanda Herrera back in 1 month. With regard to his falling episodes, he was instructed to follow up with his personal physician, Dr. Lee in 1 to 2 weeks. Brendan Rivera MD /[id number]
== END 2019-02-08 11:49 | disposition home or self-care (01) ==
LOC: JP.SDS 08:08
PROVIDERS: ATTEND Surgery
DX: K29.60 Other gastritis without bleeding (principal); R42 Dizziness and giddiness; W19.XXXA Unspecified fall, initial encounter; Z98.84 Bariatric surgery status; Z79.899 Other long term (current) drug therapy
CPT/HCPCS: 36415; 43239; 80053; 82607; 82728; 82746; 83735; 84100; 85027; 87081; C9113; J2250; J2704; J3010; J7121

== ENCOUNTER 2020-07-21 07:54 | Inpatient (IN) | payer MEDICARE, BC ==
[2020-07-21] MEDS ORDERED: Povidone-Iodine 10% Soln 118.25 ML Bottle ONE (08:02)
[2020-07-21] MEDS: Nozin Nasal Sanitizer NASBOTH SCH ×2 (08:28→20:02)
[2020-07-21] MEDS ORDERED: Lactated Ringers 1,000 ML IV SCH (08:30)
[2020-07-21] MEDS ORDERED: ceFAZolin 2 GM in Premix Bag 1 BAG IV ONE (09:30)
[2020-07-21] MEDS ORDERED: Propofol 200 MG/20 ML SDV ONE ×2 (09:53→11:39)
[2020-07-21] MEDS ORDERED: fentaNYL 100 MCG/2 ML SDV ONE ×2 (09:53→11:12)
[2020-07-21] MEDS ORDERED: Midazolam 1 MG/ML 2 ML SDV ONE ×2 (09:53→11:12)
[2020-07-21] MEDS ORDERED: Lactated Ringers 1,000 ML ONE (11:12)
[2020-07-21] MEDS ORDERED: Magnesium Hydroxide 400 MG/5 ML Susp 30 ML Cup PO PRN (12:47)
[2020-07-21] MEDS ORDERED: Acetaminophen 325 MG Tab PO PRN (12:47)
[2020-07-21] MEDS ORDERED: Morphine 2 MG/ML SYRINGE IVPUSH PRN (12:47)
[2020-07-21] MEDS ORDERED: Prochlorperazine 5 MG in Sodium Chloride 0.9% 50 ML IV PRN (13:22)
[2020-07-21] MEDS: Ketorolac 30 MG/ML SDV IVPUSH PRN (14:05)
[2020-07-21] MEDS: Sodium Chloride 0.9% 1,000 ML IV SCH (17:15)
[2020-07-21] MEDS: Acetaminophen/oxyCODONE 325-5 MG Tab PO PRN ×2 (17:15→19:46)
[2020-07-21] MEDS: ceFAZolin 1 GM in Premix Bag 1 BAG IV SCH (17:19)
[2020-07-21] MEDS: Apixaban 5 MG Tab PO SCH (20:01)
[2020-07-21] MEDS: Docusate Sodium 100 MG Cap PO SCH (20:01)
[2020-07-21] MEDS: Metoprolol Tartrate 50 MG Tab PO SCH (20:01)
[2020-07-21] MEDS: Simvastatin 20 MG Tab PO SCH (20:02)
[2020-07-21] MEDS: Amitriptyline 25 MG Tab PO SCH (20:02)
[2020-07-21] MEDS ORDERED: Nozin Nasal Sanitizer NASBOTH SCH (21:00)
[2020-07-22] MEDS: Sodium Chloride 0.9% 1,000 ML IV SCH ×2 (01:08→09:18)
[2020-07-22] MEDS: ceFAZolin 1 GM in Premix Bag 1 BAG IV SCH ×2 (02:08→09:26)
[2020-07-22] MEDS: Ketorolac 30 MG/ML SDV IVPUSH PRN ×2 (02:12→13:31)
[2020-07-22] MEDS: Acetaminophen/oxyCODONE 325-5 MG Tab PO PRN ×2 (02:53→09:25)
--- NOTE | 2020-07-22 08:38 | PCM.SURGPN ---
- General Info Date of Service: 07/22/20 Date of Surgery/Procedure: 07/21/20 POD#: 1 Post-Op Diagnosis: Right knee instability Admission Diagnosis/Problem: Knee joint operation Functional Status: Reports: Pain Controlled, Tolerating Diet, Incentive Spirometry - Review of Systems General: Reports: No Symptoms HEENT: Reports: No Symptoms Pulmonary: Reports: No Symptoms Cardiovascular: Reports: No Symptoms Gastrointestinal: Reports: No Symptoms Genitourinary: Reports: No Symptoms Musculoskeletal: Reports: Leg Pain (right ), Joint Pain (right knee ) Skin: Reports: No Symptoms Neurological: Reports: No Symptoms Psychiatric: Reports: No Symptoms - Patient Data Vitals - Most Recent: Last Vital Signs Temp 98.5 F 07/22/20 07:00 Pulse 106 H 07/22/20 07:00 Resp 18 07/22/20 07:00 BP 101/61 07/22/20 07:00 Pulse Ox 96 07/22/20 07:00 Weight - Most Recent: 267 lb I&O - Last 24 Hours: Intake & Output 07/21/20 07/22/20 07/22/20 22:59 06:59 14:59 Intake Total 1383 1411 Output Total 175 35 Balance 1208 1077 Lab Results Last 24 Hrs: Laboratory Results - last 24 hr 07/21/20 07/21/20 07/22/20 Range/Units 08:20 08:20 05:03 WBC 6.1 (4.5-11.0) K/uL RBC 3.52 L (4.30-5.90) M/uL Hgb 10.7 L D (12.0-15.0) g/dL Hct 33.2 L (40.0-54.0) % MCV 94 (80-98) fL MCH 30 (27-31) pg MCHC 32 (32-36) % Plt Count 194 (150-400) K/uL Sodium 144 (140-148) mmol/L Potassium 5.2 (3.6-5.2) mmol/L Chloride 103 (100-108) mmol/L Carbon Dioxide 31 (21-32) mmol/L Anion Gap 9.8 (5.0-14.0) mmol/L BUN 19 H (7-18) mg/dL Creatinine 1.1 (0.8-1.3) mg/dL Est Cr Clr Drug Dosing 62.55 mL/min Estimated GFR (MDRD) > 60 (>60) Glucose 96 (74-106) mg/dL Calcium 9.2 (8.5-10.1) mg/dL Total Bilirubin 0.5 D (0.2-1.0) mg/dL AST 29 (15-37) U/L ALT 28 (12-78) U/L Alkaline Phosphatase 80 (46-116) U/L Total Protein 7.0 (6.4-8.2) g/dL Albumin 3.7 (3.4-5.0) g/dL Globulin 3.3 (2.3-3.5) g/dL Albumin/Globulin Ratio 1.1 L (1.2-2.2) Blood Type A POSITIVE Gel Antibody Screen Negative Med Orders - Current: Current Medications Acetaminophen (Acetaminophen 325 Mg Tab) 650 mg PO Q4H PRN PRN Reason: Pain/Fever Hydrocodone Bitart/Acetaminophen (Acetaminophen/Hydrocodone 325-5 Mg Tab) 1 tab PO Q4H PRN PRN Reason: Pain (mild 1-3) Amitriptyline HCl (Amitriptyline 25 Mg Tab) 25 mg PO BEDTIME [facility] Last Admin: 07/21/20 20:02 Dose: 25 mg Documented by: Apixaban (Apixaban 5 Mg Tab) 5 mg PO BID [facility] Last Admin: 07/21/20 20:01 Dose: 5 mg Documented by: Bandage/Support Products (Nozin Nasal Forensic Materials Engineer) 1 applic NASBOTH BID [facility] Stop: 07/27/20 21:01 Last Admin: 07/21/20 20:02 Dose: 1 applic Documented by: Citalopram Hydrobromide (Citalopram 20 Mg Tab) 20 mg PO DAILY [facility] Docusate Sodium (Docusate Sodium 100 Mg Cap) 100 mg PO BID [facility] Last Admin: 07/21/20 20:01 Dose: 100 mg Documented by: Furosemide (Furosemide 40 Mg Tab) 40 mg PO DAILY [facility] Sodium Chloride (Normal Saline) 1,000 mls @ 125 mls/hr IV ASDIRECTED [facility] Last Admin: 07/22/20 01:08 Dose: 125 mls/hr Documented by: Cefazolin Sodium/Dextrose 1 gm (/ Premix) 50 mls @ 100 mls/hr IV Q8H [facility] Stop: 07/22/20 10:29 Last Admin: 07/22/20 02:08 Dose: 100 mls/hr Documented by: Prochlorperazine Edisylate 5 (mg/ Sodium Chloride) 51 mls @ 150 mls/hr IV Q6H PRN PRN Reason: Nausea/Vomiting Ketorolac Tromethamine (Ketorolac 30 Mg/Ml Sdv) 15 mg IVPUSH Q8H PRN PRN Reason: Pain Stop: 07/26/20 12:48 Last Admin: 07/22/20 02:12 Dose: 15 mg Documented by: Magnesium Hydroxide (Magnesium Hydroxide 400 Mg/5 Ml Susp 30 Ml Cup) 30 ml PO BID PRN PRN Reason: Constipation Magnesium Oxide (Magnesium Oxide 400 Mg Tab) 400 mg PO DAILY [facility] Metoprolol Tartrate (Metoprolol Tartrate 50 Mg Tab) 50 mg PO BID [facility] Last Admin: 07/21/20 20:01 Dose: 50 mg Documented by: Morphine Sulfate (Morphine 2 Mg/Ml Syringe) 1 mg IVPUSH Q1H PRN PRN Reason: Breakthrough Pain Oxycodone/Acetaminophen (Acetaminophen/Oxycodone 325-5 Mg Tab) 1 - 2 tab PO Q4H PRN PRN Reason: Pain Last Admin: 07/22/20 02:53 Dose: 2 tab Documented by: Simvastatin (Simvastatin 20 Mg Tab) 20 mg PO BEDTIME [facility] Last Admin: 07/21/20 20:02 Dose: 20 mg Documented by: Discontinued Medications Fentanyl (Fentanyl 100 Mcg/2 Ml Sdv) Confirm Administered Dose 100 mcg .ROUTE .STK-MED ONE Stop: 07/21/20 09:54 Fentanyl (Fentanyl 100 Mcg/2 Ml Sdv) Confirm Administered Dose 100 mcg .ROUTE .STK-MED ONE Stop: 07/21/20 11:13 Cefazolin Sodium/Dextrose 2 gm (/ Premix) 50 mls @ 100 mls/hr IV ONETIME ONE Stop: 07/21/20 09:59 Last Admin: 07/21/20 10:48 Dose: 100 mls/hr Documented by: Lactated Ringer's (Ringers, Lactated) 1,000 mls @ 75 mls/hr IV ASDIRECTED [facility] Last Admin: 07/21/20 08:48 Dose: 75 mls/hr Documented by: Lactated Ringer's (Ringers, Lactated) Confirm Administered Dose 1,000 mls @ as directed .ROUTE .STK-MED ONE Stop: 07/21/20 11:13 Midazolam HCl (Midazolam 1 Mg/Ml 2 Ml Sdv) Confirm Administered Dose 2 mg .ROUTE .STK-MED ONE Stop: 07/21/20 09:54 Midazolam HCl (Midazolam 1 Mg/Ml 2 Ml Sdv) Confirm Administered Dose 2 mg .ROUTE .STK-MED ONE Stop: 07/21/20 11:13 Povidone Iodine (Povidone-Iodine 10% Soln 118.25 Ml Bottle) Confirm Administered Dose 1 ml .ROUTE .STK-MED ONE Stop: 07/21/20 08:03 Last Admin: 07/21/20 11:29 Dose: 40 ml Documented by: Propofol (Propofol 200 Mg/20 Ml Sdv) Confirm Administered Dose 200 mg .ROUTE .STK-MED ONE Stop: 07/21/20 09:54 Propofol (Propofol 200 Mg/20 Ml Sdv) Confirm Administered Dose 200 mg .ROUTE .STK-MED ONE Stop: 07/21/20 11:40 - Exam Wound/Incisions: Dressing Dry and Intact, No Drainage Quality Assessment: Urine Catheter, DVT Prophylaxis General: Alert, Oriented, Cooperative, No Acute Distress Extremities: Normal Capillary Refill, Joint Swelling (R knee ) Skin: Dry, Intact Neurological: No New Focal Deficit Psy/Mental Status: Alert, Normal Affect, Normal Mood Sepsis Event Note - Evaluation Sepsis Screening Result: No Definite Risk - Focused Exam Vital Signs: Vital Signs Temp Temp Pulse Resp BP Pulse Ox 07/22/20 07:00 98.5 F 106 H 18 101/61 96 07/22/20 02:08 99.4 F 95 18 102/49 L 96 07/21/20 22:48 97.9 F 77 16 101/57 L 98 - Problem List & Annotations (1) S/P right knee surgery SNOMED Code(s): 640927099 Code(s): Z98.890 - OTHER SPECIFIED POSTPROCEDURAL STATES Status: Acute Current Visit: Yes Annotation/Comment:: 07/21: Polyethylene exchange and tibial tubercle osteotomy (2) Postoperative anemia SNOMED Code(s): 767935872, 182670753 Code(s): D64.9 - ANEMIA, UNSPECIFIED Status: Acute Current Visit: Yes - Problem List Review Problem List Initiated/Reviewed/Updated: Yes - My Orders Last 24 Hours: Active Orders 24 hr Category Date Time Status Patient Status [ADT] Routine ADT 07/21/20 12:47 Active Ambulate [RC] QID Care 07/21/20 12:47 Active Antiembolic Devices [RC] .Routine Care 07/21/20 12:48 Active Head of Bed Elevation [RC] ASDIRECTED Care 07/21/20 12:47 Active Intake and Output [RC] QSHIFT Care 07/21/20 12:47 Active May Shower [RC] ASDIRECTED Care 07/21/20 12:47 Active Neurovascular Check [RC] Q4H Care 07/21/20 12:47 Active Notify Provider Vital Signs [RC] ASDIRECTED Care 07/21/20 12:47 Active Oxygen Therapy [RC] PRN Care 07/21/20 12:47 Active Pneumonia Education [RC] UPON Care 07/21/20 12:47 Active RT Incentive Spirometry [RC] Q1HWA Care 07/21/20 12:47 Active Up to Chair [RC] QID Care 07/21/20 12:47 Active VTE/DVT Education [RC] Click to Edit Care 07/21/20 12:48 Active Wound Care [RC] Q12H Care 07/21/20 12:47 Active Consult to Case Management/Railroad Dispatcher [CONS] Cons 07/21/20 12:47 Active Routine OT Evaluation and Treatment [CONS] Routine Cons 07/21/20 12:47 Active PT Evaluation and Treatment [CONS] Routine Cons 07/21/20 12:47 Active PT Evaluation and Treatment [CONS] Routine Cons 07/21/20 12:47 Active Regular Diet [DIET] Diet 07/21/20 Lunch Active Knee 1V or 2V Rt [CR] Routine Exams 07/21/20 12:46 Taken Acetaminophen [TylenoL] Med 07/21/20 12:47 Active 650 mg PO Q4H PRN Acetaminophen/HYDROcodone [[place] 325-5 MG] Med 07/21/20 12:47 Active 1 tab PO Q4H PRN Acetaminophen/oxyCODONE [Percocet 325-5 MG] Med 07/21/20 12:47 Active 1 - 2 tab PO Q4H PRN Amitriptyline [Elavil] Med 07/21/20 21:00 Active 25 mg PO BEDTIME Apixaban [Eliquis] Med 07/21/20 21:00 Active 5 mg PO BID Citalopram [Celexa] Med 07/22/20 09:00 Active 20 mg PO DAILY Docusate Sodium [Colace] Med 07/21/20 21:00 Active 100 mg PO BID Furosemide [Lasix] Med 07/22/20 09:00 Active 40 mg PO DAILY Ketorolac [Toradol] Med 07/21/20 12:47 Active 15 mg IVPUSH Q8H PRN Magnesium Hydroxide [Milk of Magnesia] Med 07/21/20 12:47 Active 30 ml PO BID PRN Magnesium Oxide Med 07/22/20 09:00 Active 400 mg PO DAILY Metoprolol Tartrate [Lopressor] Med 07/21/20 21:00 Active 50 mg PO BID Morphine Med 07/21/20 12:47 Active 1 mg IVPUSH Q1H PRN Nozin [ Nasal Forensic Materials Engineer] Med 07/21/20 08:45 Active 1 applic NASBOTH BID Prochlorperazine [Compazine] 5 mg Med 07/21/20 13:22 Active Sodium Chloride 0.9% [Normal Saline] 50 ml IV Q6H Simvastatin [Zocor] Med 07/21/20 21:00 Active 20 mg PO BEDTIME Sodium Chloride 0.9% [Normal Saline] 1,000 ml Med 07/21/20 13:00 Active IV ASDIRECTED ceFAZolin [Ancef 1 GM/50 ML] 1 gm Med 07/21/20 18:00 Active Premix Bag 1 bag IV Q8H Antiembolic Hose [OM.PC] Routine Oth 07/21/20 12:47 Ordered DVT/VTE Prophylaxis Reflex [OM.PC] Routine Oth 07/21/20 12:47 Ordered Ice Therapy [OM.PC] Per Unit Routine Oth 07/21/20 12:47 Ordered Medication Continuation Instructions [OM.PC] Per Unit Oth 07/21/20 12:47 Ordered Routine Oral Care [OM.PC] Routine Oth 07/21/20 12:47 Ordered Sequential Compression Device [OM.PC] Routine Oth 07/21/20 12:47 Ordered BALTA Hose [Antiembolic Hose] [OM.PC] Routine Oth 07/21/20 08:00 Ordered Weight bearing status [OM.PC] Routine Oth 07/21/20 14:25 Ordered Resuscitation Status Routine Resus Stat 07/21/20 12:47 Ordered Medication Orders Acetaminophen (Acetaminophen 325 Mg Tab) 650 mg PO Q4H PRN PRN Reason: Pain/Fever Hydrocodone Bitart/Acetaminophen (Acetaminophen/Hydrocodone 325-5 Mg Tab) 1 tab PO Q4H PRN PRN Reason: Pain (mild 1-3) Amitriptyline HCl (Amitriptyline 25 Mg Tab) 25 mg PO BEDTIME [facility] Last Admin: 07/21/20 20:02 Dose: 25 mg Documented by: MELVINA Apixaban (Apixaban 5 Mg Tab) 5 mg PO BID [facility] Last Admin: 07/21/20 20:01 Dose: 5 mg Documented by: MELVINA Bandage/Support Products (Nozin Nasal Forensic Materials Engineer) 1 applic NASBOTH BID [facility] Stop: 07/27/20 21:01 Last Admin: 07/21/20 20:02 Dose: 1 applic Documented by: Admin: 07/21/20 08:28 Dose: 1 applic Documented by: CHARBEL Citalopram Hydrobromide (Citalopram 20 Mg Tab) 20 mg PO DAILY [facility] Docusate Sodium (Docusate Sodium 100 Mg Cap) 100 mg PO BID [facility] Last Admin: 07/21/20 20:01 Dose: 100 mg Documented by: MELVINA Furosemide (Furosemide 40 Mg Tab) 40 mg PO DAILY [facility] Sodium Chloride (Normal Saline) 1,000 mls @ 125 mls/hr IV ASDIRECTED [facility] Last Admin: 07/22/20 01:08 Dose: 125 mls/hr Documented by: Infusion: 07/22/20 01:08 Dose: 125 mls/hr Documented by: Admin: 07/21/20 17:15 Dose: 125 mls/hr Documented by: ISAEL Cefazolin Sodium/Dextrose 1 gm (/ Premix) 50 mls @ 100 mls/hr IV Q8H [facility] Stop: 07/22/20 10:29 Last Admin: 07/22/20 02:08 Dose: 100 mls/hr Documented by: Infusion: 07/21/20 17:49 Dose: 100 mls/hr Documented by: Admin: 07/21/20 17:19 Dose: 100 mls/hr Documented by: ISAEL Prochlorperazine Edisylate 5 (mg/ Sodium Chloride) 51 mls @ 150 mls/hr IV Q6H PRN PRN Reason: Nausea/Vomiting Ketorolac Tromethamine (Ketorolac 30 Mg/Ml Sdv) 15 mg IVPUSH Q8H PRN PRN Reason: Pain Stop: 07/26/20 12:48 Last Admin: 07/22/20 02:12 Dose: 15 mg Documented by: Admin: 07/21/20 14:05 Dose: 15 mg Documented by: ISAEL Magnesium Hydroxide (Magnesium Hydroxide 400 Mg/5 Ml Susp 30 Ml Cup) 30 ml PO BID PRN PRN Reason: Constipation Magnesium Oxide (Magnesium Oxide 400 Mg Tab) 400 mg PO DAILY [facility] Metoprolol Tartrate (Metoprolol Tartrate 50 Mg Tab) 50 mg PO BID [facility] Last Admin: 07/21/20 20:01 Dose: 50 mg Documented by: MELVINA Morphine Sulfate (Morphine 2 Mg/Ml Syringe) 1 mg IVPUSH Q1H PRN PRN Reason: Breakthrough Pain Oxycodone/Acetaminophen (Acetaminophen/Oxycodone 325-5 Mg Tab) 1 - 2 tab PO Q4H PRN PRN Reason: Pain Last Admin: 07/22/20 02:53 Dose: 2 tab Documented by: Admin: 07/21/20 19:46 Dose: 1 tab Documented by: Admin: 07/21/20 17:15 Dose: 1 tab Documented by: ISAEL Simvastatin (Simvastatin 20 Mg Tab) 20 mg PO BEDTIME [facility] Last Admin: 07/21/20 20:02 Dose: 20 mg Documented by: MELVINA - Assessment Assessment (Free Text/Narrative):: Patient is a 79-year-old male, status post right total knee revision, postop day #1. Had the polyethylene spacer exchanged, in addition to a tibial tubercle osteotomy. Patient tolerated surgery well with no complications. No acute events overnight. Patient's past medical history significant for Atrial fibrillation; he did go into Atrial fibrillation yesterday afternoon following surgery with heart rate fluctuating with an irregular beat from 70s to 115. Patient was placed on telemetry monitoring. Patient was asymptomatic with this fluctuation. Patient did receive his regular metoprolol dose yesterday evening. Denied palpitations or chest pain. Has had some soft blood pressures. All other vitals within normal limits. Denied shortness of breath, subjective fevers nor chills. Patient's son brought his old hinged brace for knee this morning. Patient's right knee to remain in hinged full extension. May weight-bear as tolerated on this leg with brace on and knee kept in full extension. Pain has been well controlled up to this point in R knee. Patient reports back pain is more bothersome than knee pain this morning. No nausea or vomiting. Has been tolerating regular diet well. Colon remains in place. Postop day #1 hemoglobin at 10.7. Patient denied dizziness, weakness, nor fatigue. Has transferred to chair one time, but has not ambulated any further than this transfer. Patient status changed from same day to inpatient, as patient is requiring further physical therapy services at this time to progress ambulation abilities with hinged brace to allow for a safe discharge to home. Exam: Yasir dressing over right knee dry and intact. Mild swelling of the right knee. Mild pedal edema of the right foot. Tibialis posterior pulse appreciated, 2+. Demonstrates active motion of all toes. Sensation intact to right lower extremity. Plan: * Anticipate participation in physical therapy and occupational therapy daily while in the hospital. * May pull Colon catheter, pending progress with ambulation abilities after morning PT. * A-fib: stable at this time. Continue to monitor HR and home Metoprolol dosing. * Continue with maintenance fluids this morning; will readdress this afternoon. If blood pressures improve, may saline lock. * Continue with current pain regimen. * DVT/VTE prophylaxis: Chemical with home apixaban dosage. Mechanical with bilateral SCDs. * Postoperative anemia stable at this time. Continue to monitor for weakness, fatigue, or dizziness with transfers. Can recheck CBC if becomes symptomatic. * Anticipate discharge to home with home health when patient's ambulation status advances and pain is controlled with PO medications.
--- NOTE | 2020-07-22 09:08 | CR ---
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 There has been revision of the proximal tibia with fixation sutures and screws through an anterior tibial fracture. Impression: Revision of tibial component of total knee arthroplasty. Fracture of the anterior tibia
[2020-07-22] MEDS: Magnesium Oxide 400 MG Tab PO SCH (09:54)
[2020-07-22] MEDS: Furosemide 40 MG Tab PO SCH (09:54)
[2020-07-22] MEDS: Docusate Sodium 100 MG Cap PO SCH ×2 (09:54→20:45)
[2020-07-22] MEDS: Apixaban 5 MG Tab PO SCH ×2 (09:54→20:46)
[2020-07-22] MEDS: Nozin Nasal Sanitizer NASBOTH SCH ×2 (09:54→20:45)
[2020-07-22] MEDS: Citalopram 20 MG Tab PO SCH (09:54)
[2020-07-22] MEDS: Metoprolol Tartrate 50 MG Tab PO SCH ×2 (09:55→20:47)
[2020-07-22] MEDS: Acetaminophen/HYDROcodone 325-5 MG Tab PO PRN ×2 (13:30→17:41)
[2020-07-22] MEDS ORDERED: ceFAZolin 1 GM in Premix Bag 1 BAG IV SCH (18:00)
[2020-07-22] MEDS: Amitriptyline 25 MG Tab PO SCH (20:46)
[2020-07-22] MEDS: Simvastatin 20 MG Tab PO SCH (20:46)
[2020-07-23] MEDS: Acetaminophen/HYDROcodone 325-5 MG Tab PO PRN ×3 (08:49→21:50)
[2020-07-23] MEDS: Furosemide 40 MG Tab PO SCH (08:50)
[2020-07-23] MEDS: Metoprolol Tartrate 50 MG Tab PO SCH ×2 (08:50→21:12)
[2020-07-23] MEDS: Citalopram 20 MG Tab PO SCH (08:50)
[2020-07-23] MEDS: Docusate Sodium 100 MG Cap PO SCH ×2 (08:50→20:08)
[2020-07-23] MEDS: Magnesium Oxide 400 MG Tab PO SCH (08:50)
[2020-07-23] MEDS: Apixaban 5 MG Tab PO SCH ×2 (08:50→20:08)
[2020-07-23] MEDS: Nozin Nasal Sanitizer NASBOTH SCH ×2 (08:51→20:08)
--- NOTE | 2020-07-23 09:44 | PCM.SURGPN ---
- General Info Date of Service: 07/23/20 Date of Surgery/Procedure: 07/21/20 POD#: 2 Post-Op Diagnosis: right knee revision Functional Status: Reports: Pain Controlled, Tolerating Diet, Ambulating (with FWW, hinged brace ), Urinating, Incentive Spirometry - Review of Systems General: Reports: No Symptoms HEENT: Reports: No Symptoms Pulmonary: Reports: No Symptoms Cardiovascular: Reports: Dyspnea on Exertion Gastrointestinal: Reports: No Symptoms Genitourinary: Reports: No Symptoms Musculoskeletal: Reports: Back Pain (chronic ), Leg Pain (right ), Joint Pain (right knee ), Joint Swelling (right knee, ankle ) Neurological: Reports: No Symptoms Psychiatric: Reports: No Symptoms - Patient Data Vitals - Most Recent: Last Vital Signs Temp 96.8 F L 07/23/20 07:00 Pulse 108 H 07/23/20 08:50 Resp 18 07/23/20 07:00 BP 124/49 L 07/23/20 08:50 Pulse Ox 94 L 07/23/20 07:00 Weight - Most Recent: 267 lb I&O - Last 24 Hours: Intake & Output 07/22/20 07/23/20 07/23/20 22:59 06:59 14:59 Intake Total 2226 480 Output Total 35 62% Balance 187F -62% 480 Med Orders - Current: Current Medications Acetaminophen (Acetaminophen 325 Mg Tab) 650 mg PO Q4H PRN PRN Reason: Pain/Fever Hydrocodone Bitart/Acetaminophen (Acetaminophen/Hydrocodone 325-5 Mg Tab) 1 tab PO Q4H PRN PRN Reason: Pain (mild 1-3) Last Admin: 07/23/20 08:49 Dose: 1 tab Documented by: Amitriptyline HCl (Amitriptyline 25 Mg Tab) 25 mg PO BEDTIME [facility] Last Admin: 07/22/20 20:46 Dose: 25 mg Documented by: Apixaban (Apixaban 5 Mg Tab) 5 mg PO BID [facility] Last Admin: 07/23/20 08:50 Dose: 5 mg Documented by: Bandage/Support Products (Nozin Nasal [employer] Systems Repairer) 1 applic NASBOTH BID [facility] Stop: 07/27/20 21:01 Last Admin: 07/23/20 08:51 Dose: 1 applic Documented by: Citalopram Hydrobromide (Citalopram 20 Mg Tab) 20 mg PO DAILY [facility] Last Admin: 07/23/20 08:50 Dose: 20 mg Documented by: Docusate Sodium (Docusate Sodium 100 Mg Cap) 100 mg PO BID [facility] Last Admin: 07/23/20 08:50 Dose: 100 mg Documented by: Furosemide (Furosemide 40 Mg Tab) 40 mg PO DAILY [facility] Last Admin: 07/23/20 08:50 Dose: 40 mg Documented by: Prochlorperazine Edisylate 5 (mg/ Sodium Chloride) 51 mls @ 150 mls/hr IV Q6H PRN PRN Reason: Nausea/Vomiting Ketorolac Tromethamine (Ketorolac 30 Mg/Ml Sdv) 15 mg IVPUSH Q8H PRN PRN Reason: Pain Stop: 07/26/20 12:48 Last Admin: 07/22/20 13:31 Dose: 15 mg Documented by: Magnesium Hydroxide (Magnesium Hydroxide 400 Mg/5 Ml Susp 30 Ml Cup) 30 ml PO BID PRN PRN Reason: Constipation Magnesium Oxide (Magnesium Oxide 400 Mg Tab) 400 mg PO DAILY [facility] Last Admin: 07/23/20 08:50 Dose: 400 mg Documented by: Metoprolol Tartrate (Metoprolol Tartrate 50 Mg Tab) 50 mg PO BID [facility] Last Admin: 07/23/20 08:50 Dose: 50 mg Documented by: Morphine Sulfate (Morphine 2 Mg/Ml Syringe) 1 mg IVPUSH Q1H PRN PRN Reason: Breakthrough Pain Oxycodone/Acetaminophen (Acetaminophen/Oxycodone 325-5 Mg Tab) 1 - 2 tab PO Q4H PRN PRN Reason: Pain Last Admin: 07/22/20 09:25 Dose: 2 tab Documented by: Simvastatin (Simvastatin 20 Mg Tab) 20 mg PO BEDTIME [facility] Last Admin: 07/22/20 20:46 Dose: 20 mg Documented by: Discontinued Medications Fentanyl (Fentanyl 100 Mcg/2 Ml Sdv) Confirm Administered Dose 100 mcg .ROUTE .STK-MED ONE Stop: 07/21/20 09:54 Fentanyl (Fentanyl 100 Mcg/2 Ml Sdv) Confirm Administered Dose 100 mcg .ROUTE .STK-MED ONE Stop: 07/21/20 11:13 Cefazolin Sodium/Dextrose 2 gm (/ Premix) 50 mls @ 100 mls/hr IV ONETIME ONE Stop: 07/21/20 09:59 Last Admin: 07/21/20 10:48 Dose: 100 mls/hr Documented by: Lactated Ringer's (Ringers, Lactated) 1,000 mls @ 75 mls/hr IV ASDIRECTED [facility] Last Admin: 07/21/20 08:48 Dose: 75 mls/hr Documented by: Lactated Ringer's (Ringers, Lactated) Confirm Administered Dose 1,000 mls @ as directed .ROUTE .STK-MED ONE Stop: 07/21/20 11:13 Sodium Chloride (Normal Saline) 1,000 mls @ 125 mls/hr IV ASDIRECTED [facility] Last Admin: 07/22/20 09:18 Dose: 125 mls/hr Documented by: Cefazolin Sodium/Dextrose 1 gm (/ Premix) 50 mls @ 100 mls/hr IV Q8H [facility] Stop: 07/22/20 10:29 Last Admin: 07/22/20 09:26 Dose: 100 mls/hr Documented by: Cefazolin Sodium/Dextrose 1 gm (/ Premix) 50 mls @ 100 mls/hr IV Q8H [facility] Stop: 07/22/20 18:29 Last Admin: 07/22/20 17:41 Dose: 100 mls/hr Documented by: Midazolam HCl (Midazolam 1 Mg/Ml 2 Ml Sdv) Confirm Administered Dose 2 mg .ROUTE .STK-MED ONE Stop: 07/21/20 09:54 Midazolam HCl (Midazolam 1 Mg/Ml 2 Ml Sdv) Confirm Administered Dose 2 mg .ROUTE .ST-MED ONE Stop: 07/21/20 11:13 Povidone Iodine (Povidone-Iodine 10% Soln 118.25 Ml Bottle) Confirm Administered Dose 1 ml .ROUTE .STK-MED ONE Stop: 07/21/20 08:03 Last Admin: 07/21/20 11:29 Dose: 40 ml Documented by: Propofol (Propofol 200 Mg/20 Ml Sdv) Confirm Administered Dose 200 mg .ROUTE .STK-MED ONE Stop: 07/21/20 09:54 Propofol (Propofol 200 Mg/20 Ml Sdv) Confirm Administered Dose 200 mg .ROUTE .STK-MED ONE Stop: 07/21/20 11:40 - Exam Wound/Incisions: Healing Well, Dressing Dry and Intact, Drainage General: Alert, Oriented, Cooperative, No Acute Distress Extremities: Joint Swelling (right knee ), Leg Pain (right ), Limited Range of Motion Skin: Warm, Intact Neurological: No New Focal Deficit Psy/Mental Status: Alert, Normal Affect, Normal Mood Sepsis Event Note - Evaluation Sepsis Screening Result: No Definite Risk - Focused Exam Vital Signs: Vital Signs Temp Pulse Pulse Resp BP BP BP 07/23/20 08:50 108 H 124/49 L 07/23/20 07:00 96.8 F L 108 H 18 124/49 L 07/23/20 02:52 97.8 F 94 18 07/22/20 22:21 96.4 F L 73 16 104/64 BP Pulse Ox 07/23/20 08:50 07/23/20 07:00 94 L 07/23/20 02:52 100/49 L 96 07/22/20 22:21 96 - Problem List & Annotations (1) S/P right knee surgery SNOMED Code(s): 765283996 Code(s): Z98.890 - OTHER SPECIFIED POSTPROCEDURAL STATES Status: Acute Current Visit: Yes Annotation/Comment:: 07/21: Polyethylene exchange and tibial tubercle osteotomy (2) Postoperative anemia SNOMED Code(s): 704792871, 434806370 Code(s): D64.9 - ANEMIA, UNSPECIFIED Status: Acute Current Visit: Yes - Problem List Review Problem List Initiated/Reviewed/Updated: Yes - My Orders Last 24 Hours: Active Orders 24 hr Category Date Time Status Citalopram [Celexa] Med 07/22/20 09:00 Active 20 mg PO DAILY Furosemide [Lasix] Med 07/22/20 09:00 Active 40 mg PO DAILY Magnesium Oxide Med 07/22/20 09:00 Active 400 mg PO DAILY Convert IV to Saline Lock [OM.PC] Routine Oth 07/22/20 17:39 Ordered Medication Orders Acetaminophen (Acetaminophen 325 Mg Tab) 650 mg PO Q4H PRN PRN Reason: Pain/Fever Hydrocodone Bitart/Acetaminophen (Acetaminophen/Hydrocodone 325-5 Mg Tab) 1 tab PO Q4H PRN PRN Reason: Pain (mild 1-3) Last Admin: 07/23/20 08:49 Dose: 1 tab Documented by: Admin: 07/22/20 17:41 Dose: 1 tab Documented by: Admin: 07/22/20 13:30 Dose: 1 tab Documented by: NIYA Amitriptyline HCl (Amitriptyline 25 Mg Tab) 25 mg PO BEDTIME [facility] Last Admin: 07/22/20 20:46 Dose: 25 mg Documented by: Admin: 07/21/20 20:02 Dose: 25 mg Documented by: MELVINA Apixaban (Apixaban 5 Mg Tab) 5 mg PO BID [facility] Last Admin: 07/23/20 08:50 Dose: 5 mg Documented by: Admin: 07/22/20 20:46 Dose: 5 mg Documented by: Admin: 07/22/20 09:54 Dose: 5 mg Documented by: Admin: 07/21/20 20:01 Dose: 5 mg Documented by: MELVINA Bandage/Support Products (Nozin Nasal [employer] Repairer) 1 applic NASBOTH BID [facility] Stop: 07/27/20 21:01 Last Admin: 07/23/20 08:51 Dose: 1 applic Documented by: Admin: 07/22/20 20:45 Dose: 1 applic Documented by: Admin: 07/22/20 09:54 Dose: 1 applic Documented by: Admin: 07/21/20 20:02 Dose: 1 applic Documented by: Admin: 07/21/20 08:28 Dose: 1 applic Documented by: CHARBEL Citalopram Hydrobromide (Citalopram 20 Mg Tab) 20 mg PO DAILY [facility] Last Admin: 07/23/20 08:50 Dose: 20 mg Documented by: Admin: 07/22/20 09:54 Dose: 20 mg Documented by: ISAEL Docusate Sodium (Docusate Sodium 100 Mg Cap) 100 mg PO BID [facility] Last Admin: 07/23/20 08:50 Dose: 100 mg Documented by: Admin: 07/22/20 20:45 Dose: 100 mg Documented by: Admin: 07/22/20 09:54 Dose: 100 mg Documented by: Admin: 07/21/20 20:01 Dose: 100 mg Documented by: MELVINA Furosemide (Furosemide 40 Mg Tab) 40 mg PO DAILY [facility] Last Admin: 07/23/20 08:50 Dose: 40 mg Documented by: Admin: 07/22/20 09:54 Dose: 40 mg Documented by: ISAEL Prochlorperazine Edisylate 5 (mg/ Sodium Chloride) 51 mls @ 150 mls/hr IV Q6H PRN PRN Reason: Nausea/Vomiting Ketorolac Tromethamine (Ketorolac 30 Mg/Ml Sdv) 15 mg IVPUSH Q8H PRN PRN Reason: Pain Stop: 07/26/20 12:48 Last Admin: 07/22/20 13:31 Dose: 15 mg Documented by: Admin: 07/22/20 02:12 Dose: 15 mg Documented by: Admin: 07/21/20 14:05 Dose: 15 mg Documented by: ISAEL Magnesium Hydroxide (Magnesium Hydroxide 400 Mg/5 Ml Susp 30 Ml Cup) 30 ml PO BID PRN PRN Reason: Constipation Magnesium Oxide (Magnesium Oxide 400 Mg Tab) 400 mg PO DAILY [facility] Admin: 07/23/20 08:50 Dose: 400 mg Documented by: Admin: 07/22/20 09:54 Dose: 400 mg Documented by: ISAEL Metoprolol Tartrate (Metoprolol Tartrate 50 Mg Tab) 50 mg PO BID [facility] Admin: 07/23/20 08:50 Dose: 50 mg Documented by: Admin: 07/22/20 20:47 Dose: 50 mg Documented by: Admin: 07/22/20 09:55 Dose: 50 mg Documented by: Admin: 07/21/20 20:01 Dose: 50 mg Documented by: MELVINA Morphine Sulfate (Morphine 2 Mg/Ml Syringe) 1 mg IVPUSH Q1H PRN PRN Reason: Breakthrough Pain Oxycodone/Acetaminophen (Acetaminophen/Oxycodone 325-5 Mg Tab) 1 - 2 tab PO Q4H PRN PRN Reason: Pain Last Admin: 07/22/20 09:25 Dose: 2 tab Documented by: Admin: 07/22/20 02:53 Dose: 2 tab Documented by: Admin: 07/21/20 19:46 Dose: 1 tab Documented by: Admin: 07/21/20 17:15 Dose: 1 tab Documented by: ISAEL Simvastatin (Simvastatin 20 Mg Tab) 20 mg PO BEDTIME [facility] Last Admin: 07/22/20 20:46 Dose: 20 mg Documented by: Admin: 07/21/20 20:02 Dose: 20 mg Documented by: MELVINA - Assessment Assessment (Free Text/Narrative):: Patient is a pleasant 79 y/o male, s/p right knee revision, POD #2. Patient had no acute events overnight. Reports pain in R knee is improving, doesn't have much pain at rest, more so with transfers and ambulation. Also endorsed chronic back pain, which is more painful than the right knee this morning. Patient remains hemodynamically stable overnight. Has not had any irregularity or significant fluctuations with HR. Remains on 50 mg metoprolol BID. Denied palpitations, chest pain, nor shortness of breath. Endorsed dyspnea on exertion yesterday working with PT, denied dyspnea with transfer to chair this morning. IV saline locked evening of POD#1. Colon catheter was pulled this morning. Dressing change of R knee performed this morning. Patient has participated in daily PT and OT while in the hospital. Worked with OT on ADLs, has had multiple knee surgeries in the past and feels confident with modifications to ADLs with recent surgery. With PT, worked on bilateral LE strengthening and transfers to chair. When he elevated right leg in chair yesterday, felt a "pinch and burning" down the back of his right buttock into posterior thigh. Reports this sensation has resolved and isn't bothering him on the morning of POD#2. He did ambulate in the hallway yesterday evening, about 75 ft with FWW and hinged brace with knee in extension. Notes moderate pain in knee with ambulation and was unable to endorse or deny if R knee felt more stable than prior to surgery. Is also requiring assistance with transfers of R leg into and out of bed. Patient requires inpatient status at this time for continued therapy services to aid in progressing ambulation distance and instructions on transferring leg into/out of bed to be safe for discharge to home. Also requires pain control with PO medications prior to discharge. Exam: R knee incision approximated, most steristrips intact above incision with dried blood. 3 cm section of incision over mid-patella with minimal serosanguineous draining. This area was cleansed and new steristrips applied. No surrounding erythema of incision. New ABD dressing applied over incision and CURTIS wrap applied on R LE. Moderate edema of R knee extending to R foot. Tibialis posterior appreciated, 2+. Negative Rosalio's sign. Plan: * Continue with daily PT and OT services while in the hospital * Patient may continue WBAT on R LE with hinged extension brace on * Continue with current pain regimen. Pain must be controlled with PO medications prior to discharge * Continue with home dose Apixiban for DVT/VTE prophylaxis * Anticipate discharge to home, likely tomorrow with home health pending patient remains medically stable, makes progress with ambulation and transferring leg from bed/chair, and pain is controlled with PO medications.
[2020-07-23] MEDS: Ketorolac 30 MG/ML SDV IVPUSH PRN (10:57)
--- NOTE | 2020-07-23 15:14 | OR ---
DATE OF PROCEDURE: 07/22/2020 SURGEON: Michael Chavez MD PREOPERATIVE DIAGNOSES: 1. Unstable right total knee arthroplasty. 2. Patella henry. POSTOPERATIVE DIAGNOSES: 1. Unstable right total knee arthroplasty. 2. Patella henry. PROCEDURE PERFORMED: Revision of tibial polyethylene, right total knee, with tibial tubercle osteotomy. DRAFTER (CAD) ELECTRICAL: CHARIS Bass ANESTHESIA: Spinal with sedation. INDICATIONS: Matt is a very pleasant 79-year-old gentleman with a history of right total knee revision with a rotating platform. He also has a history of patellar dislocation. Currently, he is experiencing instability in the right knee both with medial lateral instability and hyperextension. He has significant weakness with extension of leg secondary to patella henry. He now presents for revision of right knee with exchange of tibial polyethylene for a thicker spacer with the possibility of revision to a hinged knee prosthesis. children's nursery assistant's services are utilized by CHARIS Bass, for exposure, leg positioning, and closure. DESCRIPTION OF PROCEDURE: After adequate anesthesia was obtained, the patient was placed supine with a tourniquet about the right upper thigh. Right leg was prepped and draped in a sterile fashion. Leg was exsanguinated and tourniquet inflated to 300 mmHg. Previous scar was excised. Medial parapatellar arthrotomy was then performed through the previous mesh that was utilized for reconstruction of his dislocating patella. Multiple nonabsorbable sutures were encountered. These were removed with a combination of Amelia clamp and rongeur. Incision was carried distally below the tibial tubercle for a planned tibial tubercle osteotomy for better exposure and possibility of correcting some of the patella henry. Osteotomy was planned approximately 12 cm distal to the tibial tray. Oscillating saw was utilized cutting from medial to lateral just anterior to the cement mantle for the tibial component. Osteotome was then used to reflect this laterally on the soft tissue hinge. Scar tissue was removed from the suprapatellar pouch, medial and lateral gutters, and around the patella. The knee was then flexed. Tibia was subluxed anteriorly, allowing removal of the rotating platform polyethylene. There was no evidence of loosening of either component, and the polyethylene was intact. Trial reductions were done with 17.5 mm, 22 mm, and 25 mm spacers. The 25 mm spacer allowed much improved stability, limiting the varus valgus laxity and maintaining neutral extension without hyperextension. Trial was removed. The knee was thoroughly irrigated. The new rotating platform Sigma TC3 polyethylene 25 mm was inserted without difficulty. It was taken through trial range of motion which showed excellent stability in varus valgus. No hyperextension. Distalizing the tibia also significantly improved the patella position, moving this down into the trochlea so that no further distalization was necessary. The patella tracked very well with no lateral subluxation. Drill holes were then made from lateral to medial in the tibia approximately 0.5 cm posterior to the plane of the osteotomy, partially through some of the cement mantle. 16- gauge wires were passed through the drill hole. The osteotomy was repositioned, and a 4.5 mm screw was placed from anterior to posterior just lateral to the cement mantle and tibial post proximal to the wires. This was used to initially compress the osteotomy in position. The wires were then passed over top of the osteotomy and tightened. These were cut and twisted very below the level of the tibial crest. Additional fixation was obtained with another screw more superior and medial into the tibial metaphysis and angling medially. Excellent purchase was obtained with this as well. The knee was then taken through range of motion and showed flexion easily to 120 degrees with no evidence of motion or instability at the osteotomy site. The knee was thoroughly irrigated including irrigation with a dilute Betadine solution which was left in place for 2-1/2 minutes. This was followed by further pulse lavage irrigation. The capsule in the parapatellar arthrotomy was closed with interrupted #2 Ethibond. Once closure was completed of the arthrotomy, the knee was again taken through range of motion, and the patella tracked very well with no evidence of instability. Skin was then closed with 2-0 Vicryl and a running 3-0 Monocryl, and Steri- Strips were applied. Light compressive dressing was then placed. The patient tolerated the procedure very well, had no complications, and was taken from the operating room in stable condition. Michael Chavez MD /[id number]
[2020-07-23] MEDS: Amitriptyline 25 MG Tab PO SCH (20:09)
[2020-07-23] MEDS ORDERED: atorvaSTATin 10 MG Tab PO SCH (21:00)
[2020-07-24] MEDS: Acetaminophen/HYDROcodone 325-5 MG Tab PO PRN ×3 (02:26→11:06)
[2020-07-24] MEDS: Docusate Sodium 100 MG Cap PO SCH (08:31)
[2020-07-24] MEDS: Citalopram 20 MG Tab PO SCH (08:31)
[2020-07-24] MEDS: Metoprolol Tartrate 50 MG Tab PO SCH (08:31)
[2020-07-24] MEDS: Nozin Nasal Sanitizer NASBOTH SCH (08:31)
[2020-07-24] MEDS: Apixaban 5 MG Tab PO SCH (08:32)
[2020-07-24] MEDS: Magnesium Oxide 400 MG Tab PO SCH (08:32)
[2020-07-24] MEDS: Furosemide 40 MG Tab PO SCH (08:32)
--- NOTE | 2020-07-24 08:56 | PCM.DCSUM1 ---
Discharge Summary - Hospital Course HPI Initial Comments: Patient is a pleasant 79 year old male, with a history of multiple revision surgeries to right knee. Patient has had instability with right knee and dragging of right foot, leading to multiple falls. Patient elected to undergo right knee revision to aid in stabilizing knee. The polyethylene liner was exchanged and a tibial tubercle osteotomy was performed. Surgery went well with no complications. Hospital stay was prolonged to allow further therapy services to aid in ambulation, as well as post-operative vital monitoring and obtaining adequate pain control with PO medications Diagnosis: Stroke: No Modified [place] Scale: No Symptoms at All Modified [place] Scale Score: 0 - Discharge Data Discharge Date: 07/24/20 Discharge Disposition: Home, W Home Health Agency 06 Condition: Good - Referral to Home Health Date of Face to Face Encounter: 07/24/20 Reason for Homebound Status: Motivated to go home, has support from children at home, able to perform ADLs with minimal assistance and has assisitve equipment at home from previous surgeries. Primary Care Physician: Eliseo Lee MD Skilled Need: Physical therapy to progress ambulation and strength in R LE. Home health aide and occupational therapy to aid in ADLs and activities around the house. - Discharge Diagnosis/Problem(s) (1) S/P right knee surgery SNOMED Code(s): 920259917 ICD Code: Z98.890 - OTHER SPECIFIED POSTPROCEDURAL STATES Status: Acute Current Visit: Yes Problem Details: 07/21: Polyethylene exchange and tibial tubercle osteotomy (2) Postoperative anemia SNOMED Code(s): 165927651, 202423024 ICD Code: D64.9 - ANEMIA, UNSPECIFIED Status: Acute Current Visit: Yes - Patient Summary/Data Operative Procedure(s) Performed: right knee revision Consults: Consultations 07/21/20 12:47 Consult to Case Management/Gas Worker [CONS] Routine Comment: Physician Instructions: Service(s) to be Consulted: Case Management Reason for Consult: Plan for Discharge Special Instructions: s/p R knee revision OT Evaluation and Treatment [CONS] Routine Please Evaluate and Treat. OT Reason for Consult: ADL's Special Instructions: s/p R knee revision This query below is only for informational purposes and is not editable. PT Evaluation and Treatment [CONS] Routine Please Evaluate and Treat. PT Reason for Consult: Post op Ortho Surgery Special Instructions: s/p R knee revision This query below is only for informational purposes and is not editable. PT Evaluation and Treatment [CONS] Routine Please Evaluate and Treat. PT Reason for Consult: Post op Ortho Surgery Knee Pending Discharge: Yes, 1- 2 days Special Instructions: Schedule first outpatient PT appointment in 3-5 day post discharge. This query below is only for informational purposes and is not editable. Hospital Course: Patient is a pleasant 79 y/o male, s/p right knee revision, POD#3. Tolerated surgery well with no complications. Hospital stay was relatively uncomplicated. Patient did go into an asymptomatic run of atrial fibrillation the evening of surgery, with an irregular heart beat fluctuating from 70s-115. Denied palpitations, chest pain, nor shortness of breath. Patient does have a history of atrial fibrillation and takes 50 mg Metoprolol BID. Patient was placed on court recording monitor, home metoprolol dose was resumed, and no further irregular fluctuations noted throughout stay. Postoperative anemia remained stable; no concerns of dizziness, orthostatic hypotension, nor fatigue. Patient remained hemodynamically stable throughout stay. Had hypotension the evening of POD#2 and antihypertensive medications were held. Denied subjective fever, chills, nor shortness of breath. Patient does take Mathias per baseline for chronic back pain. With his tolerance, it was difficult to obtain adequate pain control the evening of surgery and into POD#1. By the evening of POD#2, pain was well controlled with PO medications; only taking Mathias over the past 24 hours. Reports pain in R leg is minimal at rest, increased with ambulation and transfers. Endorsed chronic back pain. Additionally, has pain in the right hip that radiates down the back of right thigh. Has history of R-sided sciatica, notes this feels similar. Participated in PT and OT daily while in the hospital. Given history of multiple surgeries, patient felt confident with ability to perform ADLs with OT and assistive equipment. With PT, worked on bilateral LE strengthening, transfers with R leg into and out of bed/chair, and ambulation with hinged brace and FWW. Patient demonstrated weakness in dorsiflexion and dragging of forefoot with ambulation. Upon discussion with Dr. Chavez, patient notes he drug foot from instability in knee prior to surgery from the instability. Also noted previous weakness in dorsiflexion. Patient ambulated 160+ft with FWW and hinged brace with x1 assist multiple times. Requires x1 assist to help with transfers from bed/chair with lifting leg. Tolerated regular diet well with no nausea or emesis. IV was saline locked POD#1. Cloon was discontinued on POD#2 when ambulation abilities progressed. Dressing change performed POD#2 and #3. Exam: Incision is approximated, steristrips remain in place above incision with minimal dried blood. No active drainage nor surrounding erythema of incision. Ne w dressing applied, CURTIS compression wrap over R ankle and knee dry and intact. Severe edema of R knee into the R foot. Tibialis posterior appreciated, 2. Dorsiflexion: 3/5. Plantar flexion: 4/5. - Patient Instructions Diet: Regular Diet as Tolerated Activity: Apply Ice, Full Weight Bearing Driving: Do Not Drive Showering/Bathing: Shower in AM Wound/Incision Care: Keep Operative Site/Wound Site Clean and Dry, Change Dressing Daily Notify Provider of: Fever, Increased Pain, Swelling and Redness, Drainage - Discharge Plan *PRESCRIPTION DRUG MONITORING PROGRAM REVIEWED*: Yes *COPY OF PRESCRIPTION DRUG MONITORING REPORT IN PATIENT EWA: Not Applicable Home Medications: Home Meds Cholecalciferol (Vitamin D3) [Vitamin D3] 2,000 unit PO DAILY 02/03/15 [History] Citalopram Hydrobromide [Celexa] 20 mg PO DAILY 02/03/15 [History] Ferrous Sulfate 324 mg PO BID 02/03/15 [History] Multivitamin [Multi-Vitamin Daily] 1 tab PO DAILY 02/03/15 [History] Simvastatin [Zocor] 20 mg PO BEDTIME 02/03/15 [History] Hydrocodone/Acetaminophen [Hydrocodon-Acetaminophn 10-325] 1 tab PO Q4H PRN 02/03/17 [History] Esomeprazole Magnesium [Nexium] 20 mg PO DAILY 12/06/17 [History] Cyanocobalamin (Vitamin B-12) [Vitamin B-12] 500 mcg PO DAILY 12/15/17 [History] Metoprolol Tartrate 50 mg PO BID 12/19/17 [History] Magnesium Oxide 400 mg PO DAILY #100 tablet 12/21/17 [Rx] Amitriptyline [Elavil] 25 mg PO BEDTIME 02/06/19 [History] Apixaban [Eliquis] 5 mg PO BID 02/06/19 [History] Furosemide [Lasix] 40 mg PO DAILY 02/06/19 [History] Aspirin [Halfprin] 81 mg PO DAILY 07/02/20 [History] Cannabidiol (Cbd) Extract [Cannabis (Medical)] 1 tab PO DAILY 07/03/20 [History] Oxygen Therapy Mode: Room Air Referrals: Michael Chavez MD [Physician] - 08/05/20 11:00 am (Please arrive 15 minutes early to registrer for your appointment.) - Discharge Summary/Plan Comment DC Time >30 min.: No Discharge Summary/Plan Comment: * Anticipate discharge to home today with home health referral with physical therapy for R knee and R sciatica * Patient's pain has been controlled with Mathias over the past 24 hours. Patient has script of 5-325mg Mathias, #80 from 07/[address] Lee. Patient reports he still has pills from this script, in addition to medical marijuana and feels this will be sufficient for pain control going home * Provided with Tubigrip compression stocking for R LE * Patient to continue wearing hinged extension brace at all times. Okay to take off for showers * Patient to continue with regular Apixiban dosing for DVT/VTE prophylaxis * Encouraged to continue BID nozin * Patient to follow up with orthopedic clinic in 2 weeks, encouraged to call sooner if questions or concerns arise. Patient agreeable and expressed understanding of the above plan. - General Info Date of Service: 07/24/20 Functional Status: Reports: Pain Controlled, Tolerating Diet, Ambulating (with FWW, hinged brace, x1 standby assist ), Urinating - Review of Systems General: Reports: No Symptoms HEENT: Reports: No Symptoms Pulmonary: Reports: No Symptoms Cardiovascular: Reports: No Symptoms Gastrointestinal: Reports: No Symptoms Genitourinary: Reports: No Symptoms Musculoskeletal: Reports: Back Pain, Joint Pain (R knee ), Joint Swelling (R knee, R ankle ) Neurological: Reports: No Symptoms Psychiatric: Reports: No Symptoms - Patient Data Vitals - Most Recent: Last Vital Signs Temp 96.2 F L 07/24/20 07:48 Pulse 110 H 07/24/20 08:31 Resp 18 07/24/20 07:48 BP 115/74 07/24/20 08:31 Pulse Ox 96 07/24/20 07:48 Weight - Most Recent: 267 lb I&O - Last 24 hours: Intake & Output 07/23/20 07/24/20 07/24/20 22:59 06:59 14:59 Intake Total 480 550 Balance 480 550 Med Orders - Current: Current Medications Acetaminophen (Acetaminophen 325 Mg Tab) 650 mg PO Q4H PRN PRN Reason: Pain/Fever Hydrocodone Bitart/Acetaminophen (Acetaminophen/Hydrocodone 325-5 Mg Tab) 1 tab PO Q4H PRN PRN Reason: Pain (mild 1-3) Last Admin: 07/24/20 06:39 Dose: 1 tab Documented by: Amitriptyline HCl (Amitriptyline 25 Mg Tab) 25 mg PO BEDTIME [facility] Last Admin: 07/23/20 20:09 Dose: 25 mg Documented by: Apixaban (Apixaban 5 Mg Tab) 5 mg PO BID [facility] Last Admin: 07/24/20 08:32 Dose: 5 mg Documented by: Atorvastatin Calcium (Atorvastatin 10 Mg Tab) 10 mg PO BEDTIME [facility] Last Admin: 07/23/20 20:08 Dose: 10 mg Documented by: Bandage/Support Products (Nozin Nasal Nuclear Medicine Officer) 1 applic NASBOTH BID [facility] Stop: 07/27/20 21:01 Last Admin: 07/24/20 08:31 Dose: 1 applic Documented by: Citalopram Hydrobromide (Citalopram 20 Mg Tab) 20 mg PO DAILY [facility] Last Admin: 07/24/20 08:31 Dose: 20 mg Documented by: Docusate Sodium (Docusate Sodium 100 Mg Cap) 100 mg PO BID [facility] Last Admin: 07/24/20 08:31 Dose: 100 mg Documented by: Furosemide (Furosemide 40 Mg Tab) 40 mg PO DAILY [facility] Last Admin: 07/24/20 08:32 Dose: 40 mg Documented by: Prochlorperazine Edisylate 5 (mg/ Sodium Chloride) 51 mls @ 150 mls/hr IV Q6H PRN PRN Reason: Nausea/Vomiting Magnesium Hydroxide (Magnesium Hydroxide 400 Mg/5 Ml Susp 30 Ml Cup) 30 ml PO BID PRN PRN Reason: Constipation Magnesium Oxide (Magnesium Oxide 400 Mg Tab) 400 mg PO DAILY [facility] Last Admin: 07/24/20 08:32 Dose: 400 mg Documented by: Metoprolol Tartrate (Metoprolol Tartrate 50 Mg Tab) 50 mg PO BID [facility] Last Admin: 07/24/20 08:31 Dose: 50 mg Documented by: Morphine Sulfate (Morphine 2 Mg/Ml Syringe) 1 mg IVPUSH Q1H PRN PRN Reason: Breakthrough Pain Oxycodone/Acetaminophen (Acetaminophen/Oxycodone 325-5 Mg Tab) 1 - 2 tab PO Q4H PRN PRN Reason: Pain Last Admin: 07/22/20 09:25 Dose: 2 tab Documented by: Discontinued Medications Fentanyl (Fentanyl 100 Mcg/2 Ml Sdv) Confirm Administered Dose 100 mcg .ROUTE .STK-MED ONE Stop: 07/21/20 09:54 Fentanyl (Fentanyl 100 Mcg/2 Ml Sdv) Confirm Administered Dose 100 mcg .ROUTE .STK-MED ONE Stop: 07/21/20 11:13 Cefazolin Sodium/Dextrose 2 gm (/ Premix) 50 mls @ 100 mls/hr IV ONETIME ONE Stop: 07/21/20 09:59 Last Admin: 07/21/20 10:48 Dose: 100 mls/hr Documented by: Lactated Ringer's (Ringers, Lactated) 1,000 mls @ 75 mls/hr IV ASDIRECTED [facility] Last Admin: 07/21/20 08:48 Dose: 75 mls/hr Documented by: Lactated Ringer's (Ringers, Lactated) Confirm Administered Dose 1,000 mls @ as directed .ROUTE .STK-MED ONE Stop: 07/21/20 11:13 Sodium Chloride (Normal Saline) 1,000 mls @ 125 mls/hr IV ASDIRECTED [facility] Last Admin: 07/22/20 09:18 Dose: 125 mls/hr Documented by: Cefazolin Sodium/Dextrose 1 gm (/ Premix) 50 mls @ 100 mls/hr IV Q8H [facility] Stop: 07/22/20 10:29 Last Admin: 07/22/20 09:26 Dose: 100 mls/hr Documented by: Cefazolin Sodium/Dextrose 1 gm (/ Premix) 50 mls @ 100 mls/hr IV Q8H [facility] Stop: 07/22/20 18:29 Last Admin: 07/22/20 17:41 Dose: 100 mls/hr Documented by: Ketorolac Tromethamine (Ketorolac 30 Mg/Ml Sdv) 15 mg IVPUSH Q8H PRN PRN Reason: Pain Stop: 07/26/20 12:48 Last Admin: 07/23/20 10:57 Dose: 15 mg Documented by: Midazolam HCl (Midazolam 1 Mg/Ml 2 Ml Sdv) Confirm Administered Dose 2 mg .ROUTE .STK-MED ONE Stop: 07/21/20 09:54 Midazolam HCl (Midazolam 1 Mg/Ml 2 Ml Sdv) Confirm Administered Dose 2 mg .ROUTE .STK-MED ONE Stop: 07/21/20 11:13 Povidone Iodine (Povidone-Iodine 10% Soln 118.25 Ml Bottle) Confirm Administered Dose 1 ml .ROUTE .STK-MED ONE Stop: 07/21/20 08:03 Last Admin: 07/21/20 11:29 Dose: 40 ml Documented by: Propofol (Propofol 200 Mg/20 Ml Sdv) Confirm Administered Dose 200 mg .ROUTE .STK-MED ONE Stop: 07/21/20 09:54 Propofol (Propofol 200 Mg/20 Ml Sdv) Confirm Administered Dose 200 mg .ROUTE .STK-MED ONE Stop: 07/21/20 11:40 Simvastatin (Simvastatin 20 Mg Tab) 20 mg PO BEDTIME [facility] Last Admin: 07/22/20 20:46 Dose: 20 mg Documented by: - Exam Quality Assessment: Reports: DVT Prophylaxis General: Reports: Alert, Oriented, Cooperative, No Acute Distress Extremities: Pedal Edema (r), Joint Swelling (right knee ), Leg Pain (right ) Skin: Reports: Warm, Dry, Intact Wound/Incisions: Reports: Healing Well, Dressing Dry and Intact, No Drainage Neurological: Reports: No New Focal Deficit Psy/Mental Status: Reports: Alert, Normal Affect, Normal Mood
[2020-07-24 12:59] VITALS: BP 110/58; PULSE 117
== END 2020-07-24 14:00 | disposition home health service (06) | DRG 560 ==
LOC: JP.SDS 07:54 → JP.MS 12:56 → JP.SDS 07-22 08:30 → JP.MS 07-22 08:30 → UNDOADMIN 07-22 08:30 → JP.MS 07-22 12:27 → UNDODISIN 07-24 14:00
PROVIDERS: ADMIT Specialist; ATTEND Specialist
DX: T84.022A Instability of internal right knee prosthesis, initial encounter (principal); I48.21 Permanent atrial fibrillation; M22.2X1 Patellofemoral disorders, right knee; Z98.84 Bariatric surgery status; E66.01 Morbid (severe) obesity due to excess calories; Z96.653 Presence of artificial knee joint, bilateral; G47.33 Obstructive sleep apnea (adult) (pediatric); Y83.8 Other surgical procedures as the cause of abnormal reaction of the patient, or of later complication, without mention of misadventure at the time of the procedure; E78.5 Hyperlipidemia, unspecified; Z99.81 Dependence on supplemental oxygen; E55.9 Vitamin D deficiency, unspecified; Z88.5 Allergy status to narcotic agent; Z88.1 Allergy status to other antibiotic agents; Z88.8 Allergy status to other drugs, medicaments and biological substances; Z79.01 Long term (current) use of anticoagulants; Z79.82 Long term (current) use of aspirin; Z90.49 Acquired absence of other specified parts of digestive tract; Z68.35 Body mass index [BMI] 35.0-35.9, adult; Z79.899 Other long term (current) drug therapy; R29.6 Repeated falls
CPT/HCPCS: 36415; 73560-26-RT; 73560-RT; 80053; 85027; 86850; 86900; 86901; 97110-GP; 97162-GP; 97166-GO; 97530-GP; 97535-GO; 97535-GP; A9270-GY; C1713; C1776; J0690; J1885; J2250; J2704; J3010; J7030; J7120

== ENCOUNTER 2021-09-29 07:29 | Day surgery (SDC) | payer MEDICARE, BC ==
[~2021-09-29 07:29] MED LIST changes: -Midazolam 1 MG/ML 2 ML SDV ONE
[2021-09-29] MEDS ORDERED: Dextrose 5%-Lactated Ringers 1,000 ML IV SCH (08:00)
[2021-09-29 10:51] VITALS: BP 135/70; PULSE 85
[2021-09-29] MEDS ORDERED: ceFAZolin 2 GM in Premix Bag 1 BAG IV ONE (11:00)
== END 2021-09-29 11:00 | disposition home or self-care (01) ==
LOC: JP.SDS 07:29
PROVIDERS: ATTEND Surgery
DX: R19.5 Other fecal abnormalities (principal); G47.30 Sleep apnea, unspecified; K64.9 Unspecified hemorrhoids; Z88.5 Allergy status to narcotic agent; Z88.1 Allergy status to other antibiotic agents; Z79.899 Other long term (current) drug therapy
CPT/HCPCS: 45378; J2704; J3010; J7121

== ENCOUNTER 2022-09-06 08:15 | Day surgery (SDC) | payer MEDICARE, BC ==
[~2022-09-06 08:15] MED LIST changes: +Bupivacaine 0.5% 50 ML MDV ONE
[2022-09-06 08:52] LABS: HEMATOCRIT 32.1 % (38.4-49.7); HEMOGLOBIN 10.3 g/dL (12.9-16.9); MEAN CORPUSCULAR HEMOGLOBIN 29.4 pg (31.6-35.5); MEAN CORPUSCULAR HGB CONC 32.1 g/dL (31.6-35.5); MEAN CORPUSCULAR VOLUME 91.7 fL (81.4-99.0); RED BLOOD CELL COUNT 3.5 M/uL (4.14-5.76); WHITE BLOOD CELL COUNT,WBC 5.9 K/uL (3.2-11.0)
[2022-09-06] MEDS ORDERED: Lactated Ringers 1,000 ML IV SCH (09:00)
[2022-09-06] MEDS ORDERED: Nozin Nasal Sanitizer NASBOTH ONE (09:00)
[2022-09-06 09:14] LABS: A/G RATIO 0.6 (1.2-2.2); ALANINE AMINOTRANSFERASE,ALT 20 U/L (12-78); ALBUMIN 2.4 g/dL (3.4-5.0); ALKALINE PHOSPHATASE 90 U/L (46-116); ANION GAP 9.4 mmol/L (5.0-14.0); ASPARTATE AMNIOTRANSFERASE,AST 26 U/L (15-37); BILIRUBIN TOTAL 0.4 mg/dL (0.2-1.0); BLOOD UREA NITROGEN,BUN 21 mg/dL (7-18); C-REACTIVE PROTEIN 0.45 mg/dL (0.0-0.3); CALCIUM 8.6 mg/dL (8.5-10.1); CARBON DIOXIDE,CO2 31 mmol/L (21-32); CHLORIDE,CL 103 mmol/L (100-108); CREATININE 0.8 mg/dL (0.8-1.3); EST CRCL DRUG DOSING (CG) 83.23 mL/min; ESTIMATED GFR 89 mL/min (>60); GLUCOSE RANDOM 96 mg/dL (74-106); POTASSIUM,K 4.4 mmol/L (3.6-5.2); PROTEIN TOTAL,TP 6.6 g/dL (6.4-8.2); SODIUM,NA 139 mmol/L (140-148)
[2022-09-06] MEDS ORDERED: Metoprolol Tartrate 50 MG Tab PO ONE (10:00)
[2022-09-06] MEDS ORDERED: Propofol 200 MG/20 ML SDV ONE (10:02)
[2022-09-06] MEDS ORDERED: Acetaminophen/HYDROcodone 325-5 MG Tab PO PRN (10:53)
[2022-09-06 11:05] VITALS: PULSE 75
[2022-09-06 11:25] VITALS: BP 103/62
== END 2022-09-06 11:45 | disposition home or self-care (01) ==
LOC: JP.SDS 08:15
PROVIDERS: ATTEND Specialist
DX: T81.49XA Infection following a procedure, other surgical site, initial encounter (principal); L02.415 Cutaneous abscess of right lower limb; G47.33 Obstructive sleep apnea (adult) (pediatric); I48.91 Unspecified atrial fibrillation; Z87.891 Personal history of nicotine dependence; Z88.1 Allergy status to other antibiotic agents; Z88.5 Allergy status to narcotic agent; Z96.651 Presence of right artificial knee joint
CPT/HCPCS: 10061; 36415; 80053; 85027; 85651; 86140; 87070; 87075; 87205; A9270; J2704; J3010; J3370; J3490; J7050; J7120

== ENCOUNTER 2023-03-04 05:50 | Day surgery (SDC) | payer MEDICARE, BC ==
[2023-03-04] MEDS ORDERED: Propofol 200 MG/20 ML SDV ONE (06:56)
[2023-03-04] MEDS ORDERED: fentaNYL 50 MCG/ML SDV ONE (06:56)
[2023-03-04] MEDS ORDERED: Lactated Ringers 1,000 ML IV SCH (07:00)
[2023-03-04 09:07] VITALS: BP 106/59; PULSE 121
== END 2023-03-04 09:00 | disposition home or self-care (01) ==
LOC: JP.SDS 05:50
PROVIDERS: ATTEND Student in an Organized Health Care Education/Training Program
DX: K29.70 Gastritis, unspecified, without bleeding (principal); E78.00 Pure hypercholesterolemia, unspecified; K21.9 Gastro-esophageal reflux disease without esophagitis; K22.70 Barrett's esophagus without dysplasia; Z98.84 Bariatric surgery status; Z87.891 Personal history of nicotine dependence; Z79.82 Long term (current) use of aspirin; Z79.899 Other long term (current) drug therapy; Z88.1 Allergy status to other antibiotic agents; Z88.8 Allergy status to other drugs, medicaments and biological substances
CPT/HCPCS: 43239; J2704; J3010; J7120

== ENCOUNTER 2023-03-18 05:58 | Inpatient (IN) | payer MEDICARE, BC ==
[2023-03-18 06:24] LABS: HEMOGLOBIN 9.9 g/dL (12.9-16.9); MEAN CORPUSCULAR HEMOGLOBIN 30.8 pg (31.6-35.5); MEAN CORPUSCULAR HGB CONC 31.9 g/dL (31.6-35.5); MEAN CORPUSCULAR VOLUME 96.6 fL (81.4-99.0); RED BLOOD CELL COUNT 3.21 M/uL (4.14-5.76); WHITE BLOOD CELL COUNT,WBC 4.9 K/uL (3.2-11.0)
[2023-03-18] MEDS: Nozin Nasal Sanitizer NASBOTH SCH ×2 (07:00→21:17)
[2023-03-18 07:08] LABS: A/G RATIO 0.5 (1.2-2.2); ALANINE AMINOTRANSFERASE,ALT 21 U/L (12-78); ALBUMIN 2.5 g/dL (3.4-5.0); ALKALINE PHOSPHATASE 98 U/L (46-116); ASPARTATE AMNIOTRANSFERASE,AST 25 U/L (15-37); BILIRUBIN TOTAL 0.5 mg/dL (0.2-1.0); BLOOD UREA NITROGEN,BUN 19 mg/dL (7-18); C-REACTIVE PROTEIN 2.85 mg/dL (<0.50); CALCIUM 8.5 mg/dL (8.5-10.1); CARBON DIOXIDE,CO2 28 mmol/L (21-32); CHLORIDE,CL 102 mmol/L (100-108); CREATININE 0.7 mg/dL (0.8-1.3); EST CRCL DRUG DOSING (CG) 93.53 mL/min; ESTIMATED GFR 93 mL/min (>60); GLUCOSE RANDOM 86 mg/dL (74-106); POTASSIUM,K 4.3 mmol/L (3.6-5.2); PROTEIN TOTAL,TP 7.1 g/dL (6.4-8.2); SODIUM,NA 138 mmol/L (140-148)
[2023-03-18 07:11] LABS: ANION GAP 12.3 mmol/L (5.0-14.0)
[2023-03-18] MEDS ORDERED: fentaNYL 250 MCG/5 ML SDV ONE (07:11)
[2023-03-18] MEDS ORDERED: Etomidate 2 MG/ML 10 ML SDV ONE (07:12)
[2023-03-18] MEDS ORDERED: Dexamethasone 4 MG/ML SDV ONE (07:12)
[2023-03-18] MEDS ORDERED: Glycopyrrolate 0.2 MG/ML 5 ML MDV ONE (07:12)
[2023-03-18] MEDS ORDERED: Neostigmine Methylsulfate 10 MG/10 ML MDV ONE (07:12)
[2023-03-18] MEDS ORDERED: Rocuronium 50 MG/5 ML Vial ONE ×2 (07:12→08:41)
[2023-03-18] MEDS ORDERED: Bupivacaine 0.5% 50 ML MDV ONE (07:12)
[2023-03-18] MEDS ORDERED: Ondansetron 4 MG/2 ML SDV ONE (07:12)
[2023-03-18] MEDS: Lactated Ringers 1,000 ML IV SCH (07:29)
[2023-03-18] MEDS ORDERED: Labetalol 20 MG/4 ML Syringe ONE (09:00)
[2023-03-18] MEDS ORDERED: Morphine 2 MG/ML SYRINGE IVPUSH PRN (10:16)
[2023-03-18] MEDS: Acetaminophen/HYDROcodone 325-5 MG Tab PO PRN (11:24)
[2023-03-18] MEDS: Acetaminophen 325 MG Tab PO SCH (11:31)
[2023-03-18] MEDS: Ferrous Sulfate 325 MG Tab PO SCH (13:19)
[2023-03-18] MEDS: oxyCODONE 5 MG Tab PO PRN (15:40)
[2023-03-18] MEDS: Metoprolol Succinate 50 MG Tab.ER PO SCH (21:18)
[2023-03-18] MEDS: Docusate Sodium 100 MG Cap PO SCH (21:18)
[2023-03-18] MEDS: atorvaSTATin 10 MG Tab PO SCH (21:19)
[2023-03-18] MEDS: Amitriptyline 25 MG Tab PO SCH (21:19)
[2023-03-18] MEDS: Sodium Chloride 0.9% 1,000 ML IV SCH (21:22)
[2023-03-19 06:00] LABS: HEMATOCRIT 21.9 % (38.4-49.7); MEAN CORPUSCULAR HEMOGLOBIN 30.4 pg (31.6-35.5); MEAN CORPUSCULAR VOLUME 95.2 fL (81.4-99.0); RED BLOOD CELL COUNT 2.3 M/uL (4.14-5.76); WHITE BLOOD CELL COUNT,WBC 4.9 K/uL (3.2-11.0)
[2023-03-19 06:12] LABS: CALCIUM 7.5 mg/dL (8.5-10.1); CREATININE 0.6 mg/dL (0.8-1.3); EST CRCL DRUG DOSING (CG) 109.12 mL/min; MAGNESIUM 1.8 mg/dL (1.8-2.4)
[2023-03-19] MEDS: Pantoprazole 40 MG Tab.CR PO SCH (07:36)
[2023-03-19] MEDS: Citalopram 20 MG Tab PO SCH (08:54)
[2023-03-19] MEDS: Magnesium Oxide 400 MG Tab PO SCH (08:56)
[2023-03-19] MEDS: Aspirin 81 MG Tab.EC PO SCH (08:56)
[2023-03-19] MEDS: Furosemide 20 MG Tab PO SCH (08:56)
[2023-03-19] MEDS ORDERED: Enoxaparin 30 MG/0.3 ML Syringe SUBCUT SCH (09:00)
[2023-03-19] MEDS: Vitamin A 10,000 Unit Cap PO SCH (09:01)
[2023-03-19] MEDS: Cyanocobalamin (Vitamin B12) 1,000 MCG Tab PO SCH (09:02)
[2023-03-19] MEDS: Zinc Sulfate 220 MG Cap PO SCH (09:03)
[2023-03-19] MEDS: Cholecalciferol (Vitamin D3) 25 MCG Tab PO SCH (09:03)
[2023-03-19 11:35] LABS: IRON,FE 18 ug/dL (65-175); PERCENT FE SATURATION 14 % (20-55); TOTAL IRON BINDING CAPACITY 127 ug/dl (250-450)
[2023-03-19] MEDS: Sodium Ferric Gluconate Cmplex 250 MG in Sodium Chloride 0.9% 100 ML IV ONE (14:23)
[2023-03-19] MEDS ORDERED: Ferrous Sulfate 325 MG Tab PO SCH (17:00)
[2023-03-19] MEDS: Apixaban 5 MG Tab PO SCH (20:51)
[2023-03-20] MEDS: PHYTONADIONE 100 MCG PO SCH (10:50)
[2023-03-20] MEDS: Sodium Ferric Gluconate Cmplex 250 MG in Sodium Chloride 0.9% 100 ML IV ONE (11:14)
[2023-03-20] MEDS: Sodium Chloride 0.9% 500 ML IV ONE (13:12)
[2023-03-20] MEDS: Metoprolol Succinate 50 MG Tab.ER PO ONE (13:30)
[2023-03-20] MEDS: Metoprolol Succinate 25 MG Tab.ER PO SCH (20:21)
[2023-03-21 05:45] LABS: CALCIUM 7.6 mg/dL (8.5-10.1); CREATININE 0.5 mg/dL (0.8-1.3); EST CRCL DRUG DOSING (CG) 130.95 mL/min; POTASSIUM,K 3.7 mmol/L (3.6-5.2)
[2023-03-21 05:48] LABS: ANION GAP 7.7 mmol/L (5.0-14.0)
[2023-03-21] MEDS: oxyCODONE 5 MG Tab PO PRN (07:47)
[2023-03-22 05:29] LABS: HEMATOCRIT 24.7 % (38.4-49.7); HEMOGLOBIN 7.8 g/dL (12.9-16.9); MEAN CORPUSCULAR HEMOGLOBIN 30.2 pg (31.6-35.5); MEAN CORPUSCULAR HGB CONC 31.6 g/dL (31.6-35.5); MEAN CORPUSCULAR VOLUME 95.7 fL (81.4-99.0); RED BLOOD CELL COUNT 2.58 M/uL (4.14-5.76); WHITE BLOOD CELL COUNT,WBC 5.2 K/uL (3.2-11.0)
[2023-03-23 05:53] LABS: HEMATOCRIT 25.6 % (38.4-49.7); HEMOGLOBIN 8.1 g/dL (12.9-16.9); MEAN CORPUSCULAR HEMOGLOBIN 30.7 pg (31.6-35.5); MEAN CORPUSCULAR HGB CONC 31.6 g/dL (31.6-35.5); RED BLOOD CELL COUNT 2.64 M/uL (4.14-5.76); WHITE BLOOD CELL COUNT,WBC 4.3 K/uL (3.2-11.0)
[2023-03-23 06:10] LABS: ANION GAP 5.7 mmol/L (5.0-14.0); C-REACTIVE PROTEIN 0.89 mg/dL (<0.50); CALCIUM 7.8 mg/dL (8.5-10.1); CREATININE 0.5 mg/dL (0.8-1.3); EST CRCL DRUG DOSING (CG) 130.32 mL/min; POTASSIUM,K 3.8 mmol/L (3.6-5.2)
[2023-03-23] MEDS ORDERED: Acetaminophen/HYDROcodone 325-10 MG Tab PO PRN (14:00)
[2023-03-23] MEDS: Acetaminophen/HYDROcodone 325-5 MG Tab PO PRN (22:37)
[2023-03-24 10:39] VITALS: PULSE 99
[2023-03-24 12:49] VITALS: BP 98/52
== END 2023-03-24 14:20 | disposition swing bed (61) | DRG 467 ==
LOC: JP.SDS 05:58 → JP.MS 10:16
PROVIDERS: ADMIT Specialist; ATTEND Internal Medicine
PROC: 0SR90JZ Replacement of Right Hip Joint with Synthetic Substitute, Open Approach (ICD-10-PCS; 2023-03-18)
PROC: 0SP90JZ Removal of Synthetic Substitute from Right Hip Joint, Open Approach (ICD-10-PCS; 2023-03-18)
PROC: 30233N1 Transfusion of Nonautologous Red Blood Cells into Peripheral Vein, Percutaneous Approach (ICD-10-PCS; principal; 2023-03-19)
DX: T84.53XA Infection and inflammatory reaction due to internal right knee prosthesis, initial encounter (principal); D62 Acute posthemorrhagic anemia; M00.9 Pyogenic arthritis, unspecified; L02.419 Cutaneous abscess of limb, unspecified; I27.20 Pulmonary hypertension, unspecified; E78.00 Pure hypercholesterolemia, unspecified; M19.90 Unspecified osteoarthritis, unspecified site; G47.33 Obstructive sleep apnea (adult) (pediatric); E66.01 Morbid (severe) obesity due to excess calories; I11.0 Hypertensive heart disease with heart failure; I50.9 Heart failure, unspecified; K21.9 Gastro-esophageal reflux disease without esophagitis; Z96.651 Presence of right artificial knee joint; I48.0 Paroxysmal atrial fibrillation; Y83.8 Other surgical procedures as the cause of abnormal reaction of the patient, or of later complication, without mention of misadventure at the time of the procedure; G89.29 Other chronic pain; M54.9 Dorsalgia, unspecified; M54.2 Cervicalgia; F32.A Depression, unspecified; B95.7 Other staphylococcus as the cause of diseases classified elsewhere; Z79.82 Long term (current) use of aspirin; Z79.899 Other long term (current) drug therapy; Z98.890 Other specified postprocedural states; Z98.84 Bariatric surgery status; Z79.01 Long term (current) use of anticoagulants; Z90.49 Acquired absence of other specified parts of digestive tract; Z86.010 Personal history of colon polyps; Z87.891 Personal history of nicotine dependence; Z88.8 Allergy status to other drugs, medicaments and biological substances; Z98.1 Arthrodesis status; Z83.3 Family history of diabetes mellitus; Z68.24 Body mass index [BMI] 24.0-24.9, adult
CPT/HCPCS: 27310; 36415; 36430; 73560-26-RT; 73560-RT; 80048; 80053; 80202; 83550; 83735; 85018; 85027; 85651; 86140; 86850; 86900; 86901; 86920; 86922; 87070; 87075; 87077; 87205; 97110-GP; 97161-GP; 97530-GP; 99231; 99232; A9270-GY; C1751; C1776; J1100; J1920; J2405; J2710; J2916; J3010; J3370; J3490; J7030; J7050; J7120; P9016; U0002

== ENCOUNTER 2023-03-24 14:21 | Inpatient (IN) | payer MEDICARE, BC ==
[2023-03-24] MEDS ORDERED: Ondansetron 4 MG Tab.DIS PO PRN (14:46)
[2023-03-24] MEDS ORDERED: Melatonin 3 MG Tab PO PRN (14:46)
[2023-03-24] MEDS ORDERED: Magnesium Hydroxide 400 MG/5 ML Susp 30 ML Cup PO PRN (14:46)
[2023-03-24] MEDS ORDERED: Ondansetron 4 MG/2 ML SDV IV PRN (14:46)
[2023-03-24] MEDS: Acetaminophen/HYDROcodone 325-5 MG Tab PO PRN (18:10)
[2023-03-24] MEDS: Ferrous Sulfate 325 MG Tab PO SCH (20:25)
[2023-03-24] MEDS: Apixaban 5 MG Tab PO SCH (20:25)
[2023-03-24] MEDS: atorvaSTATin 10 MG Tab PO SCH (20:25)
[2023-03-24] MEDS: Lactobacillus Rhamnosus GG (Probiotic) Cap PO SCH (20:25)
[2023-03-24] MEDS: Amitriptyline 25 MG Tab PO SCH (20:25)
[2023-03-24] MEDS: Metoprolol Succinate 25 MG Tab.ER PO SCH (20:26)
[2023-03-25 05:54] LABS: HEMATOCRIT 26.2 % (38.4-49.7); HEMOGLOBIN 8.4 g/dL (12.9-16.9); MEAN CORPUSCULAR HEMOGLOBIN 31.1 pg (31.6-35.5); MEAN CORPUSCULAR HGB CONC 32.1 g/dL (31.6-35.5); RED BLOOD CELL COUNT 2.7 M/uL (4.14-5.76); WHITE BLOOD CELL COUNT,WBC 4.5 K/uL (3.2-11.0)
[2023-03-25 06:12] LABS: ANION GAP 6.2 mmol/L (5.0-14.0); CALCIUM 7.8 mg/dL (8.5-10.1); CREATININE 0.6 mg/dL (0.8-1.3); EST CRCL DRUG DOSING (CG) 109.12 mL/min; POTASSIUM,K 4.3 mmol/L (3.6-5.2); VANCOMYCIN RANDOM 26.7 ug/mL (0.0-50.0)
[2023-03-25] MEDS: Pantoprazole 40 MG Tab.CR PO SCH (07:01)
[2023-03-25] MEDS: PHYTONADIONE 100 MCG PO SCH (08:23)
[2023-03-25] MEDS: Vitamin A 10,000 Unit Cap PO SCH (08:24)
[2023-03-25] MEDS: Magnesium Oxide 400 MG Tab PO SCH (08:24)
[2023-03-25] MEDS: Zinc Sulfate 220 MG Cap PO SCH (08:24)
[2023-03-25] MEDS: Citalopram 20 MG Tab PO SCH (08:24)
[2023-03-25] MEDS: Cholecalciferol (Vitamin D3) 25 MCG Tab PO SCH (08:24)
[2023-03-25] MEDS: Cyanocobalamin (Vitamin B12) 1,000 MCG Tab PO SCH (08:24)
[2023-03-25] MEDS: Aspirin 81 MG Tab.EC PO SCH (08:25)
[2023-03-26] MEDS: Sennosides/Docusate Sodium 50-8.6 MG Tab PO PRN (13:28)
[2023-03-27 06:07] LABS: HEMATOCRIT 27.2 % (38.4-49.7); HEMOGLOBIN 8.6 g/dL (12.9-16.9); MEAN CORPUSCULAR HEMOGLOBIN 30.9 pg (31.6-35.5); MEAN CORPUSCULAR HGB CONC 31.6 g/dL (31.6-35.5); MEAN CORPUSCULAR VOLUME 97.8 fL (81.4-99.0); RED BLOOD CELL COUNT 2.78 M/uL (4.14-5.76); WHITE BLOOD CELL COUNT,WBC 3.8 K/uL (3.2-11.0)
[2023-03-28 04:59] LABS: ANION GAP 3.9 mmol/L (5.0-14.0); CALCIUM 8.1 mg/dL (8.5-10.1); CREATININE 0.7 mg/dL (0.8-1.3); EST CRCL DRUG DOSING (CG) 93.24 mL/min; POTASSIUM,K 5.1 mmol/L (3.6-5.2); VANCOMYCIN RANDOM 23.6 ug/mL (0.0-50.0)
[2023-03-31 05:33] LABS: ANION GAP 4.7 mmol/L (5.0-14.0); CREATININE 0.7 mg/dL (0.8-1.3); EST CRCL DRUG DOSING (CG) 93.24 mL/min; POTASSIUM,K 4.1 mmol/L (3.6-5.2)
[2023-03-31] MEDS: Metoprolol Succinate 25 MG Tab.ER PO SCH (23:36)
[2023-04-01 08:24] LABS: BASOPHILS PERCENT AUTO 0.5 % (0.1-1.3); EOSINOPHILS ABSOLUTE AUTO 0.15 K/uL (0.00-0.40); EOSINOPHILS PERCENT AUTO 3.5 % (0.0-5.4); HEMATOCRIT 30.5 % (38.4-49.7); HEMOGLOBIN 9.6 g/dL (12.9-16.9); IMMATURE GRAN PERCENT AUTO 0.5 % (0.0-0.7); LYMPHOCYTES ABSOLUTE AUTO 0.74 K/uL (0.8-3.3); LYMPHOCYTES PERCENT AUTO 17.3 % (11.4-47.7); MEAN CORPUSCULAR HEMOGLOBIN 31.1 pg (31.6-35.5); MEAN CORPUSCULAR HGB CONC 31.5 g/dL (31.6-35.5); MEAN CORPUSCULAR VOLUME 98.7 fL (81.4-99.0); NEUTROPHILS ABSOLUTE AUTO 3.04 K/uL (1.0-7.6); NEUTROPHILS PERCENT AUTO 71.2 % (40.0-78.1); PLATELET COUNT,PLT 256 K/uL (130-375); RED BLOOD CELL COUNT 3.09 M/uL (4.14-5.76); WHITE BLOOD CELL COUNT,WBC 4.3 K/uL (3.2-11.0)
[2023-04-01 08:29] LABS: BASOPHILS ABSOLUTE AUTO 0.02 K/uL (0.00-0.10); IMMATURE GRAN ABSOLUTE AUTO 0.02 K/uL (0.00-0.23)
[2023-04-04 08:23] LABS: CREATININE 0.9 mg/dL (0.8-1.3); EST CRCL DRUG DOSING (CG) 72.75 mL/min
[2023-04-05 10:53] LABS: CREATININE 0.9 mg/dL (0.8-1.3); EST CRCL DRUG DOSING (CG) 72.75 mL/min
[2023-04-07] MEDS: Rifampin 150 MG Cap PO SCH (09:52)
[2023-04-11 05:09] LABS: HEMOGLOBIN 8.8 g/dL (12.9-16.9); MEAN CORPUSCULAR HEMOGLOBIN 30.8 pg (31.6-35.5); MEAN CORPUSCULAR HGB CONC 31.4 g/dL (31.6-35.5); MEAN CORPUSCULAR VOLUME 97.9 fL (81.4-99.0); RED BLOOD CELL COUNT 2.86 M/uL (4.14-5.76); WHITE BLOOD CELL COUNT,WBC 2.2 K/uL (3.2-11.0)
[2023-04-11 05:32] LABS: C-REACTIVE PROTEIN 2.23 mg/dL (<0.50); CALCIUM 7.7 mg/dL (8.5-10.1); CREATININE 0.9 mg/dL (0.8-1.3); EST CRCL DRUG DOSING (CG) 71.61 mL/min; POTASSIUM,K 4.9 mmol/L (3.6-5.2); VANCOMYCIN RANDOM 16.6 ug/mL (0.0-50.0)
[2023-04-11 05:43] LABS: ANION GAP 7.9 mmol/L (5.0-14.0)
[2023-04-11] MEDS: Acetaminophen 325 MG Tab PO PRN (15:01)
[2023-04-14] MEDS: Doxycycline 100 MG Cap PO SCH (20:56)
[2023-04-15 07:32] VITALS: BP 99/54; PULSE 99
== END 2023-04-15 13:40 | disposition home or self-care (01) | DRG 949 ==
LOC: JP.MS 14:21
PROVIDERS: ADMIT Internal Medicine; ATTEND Hospitalist
DX: T84.53XD Infection and inflammatory reaction due to internal right knee prosthesis, subsequent encounter (principal); M00.861 Arthritis due to other bacteria, right knee; E78.00 Pure hypercholesterolemia, unspecified; E66.9 Obesity, unspecified; F32.A Depression, unspecified; K21.9 Gastro-esophageal reflux disease without esophagitis; Z96.651 Presence of right artificial knee joint; D50.0 Iron deficiency anemia secondary to blood loss (chronic); I10 Essential (primary) hypertension; I48.0 Paroxysmal atrial fibrillation; Z79.01 Long term (current) use of anticoagulants; Z88.8 Allergy status to other drugs, medicaments and biological substances; Z88.1 Allergy status to other antibiotic agents; Z87.442 Personal history of urinary calculi; Z86.010 Personal history of colon polyps; Z68.32 Body mass index [BMI] 32.0-32.9, adult; Z90.49 Acquired absence of other specified parts of digestive tract; Z98.84 Bariatric surgery status; Z98.42 Cataract extraction status, left eye; Z98.41 Cataract extraction status, right eye; Z98.1 Arthrodesis status; Y83.8 Other surgical procedures as the cause of abnormal reaction of the patient, or of later complication, without mention of misadventure at the time of the procedure
CPT/HCPCS: 36415; 80048; 80202; 82565; 85025; 85027; 85651; 86140; 97110-GO; 97110-GP; 97161-GP; 97165-GO; 97530-GP; 97535-GO; A9270-GY; J1642; J3370; J7050

== ENCOUNTER 2023-08-01 08:10 | Inpatient (IN) | payer MEDICARE, BC ==
[2023-08-01 08:43] LABS: HEMATOCRIT 34.6 % (38.4-49.7); HEMOGLOBIN 11.5 g/dL (12.9-16.9); MEAN CORPUSCULAR HEMOGLOBIN 32.8 pg (31.6-35.5); MEAN CORPUSCULAR HGB CONC 33.2 g/dL (31.6-35.5); MEAN CORPUSCULAR VOLUME 98.6 fL (81.4-99.0); RED BLOOD CELL COUNT 3.51 M/uL (4.14-5.76)
[2023-08-01] MEDS ORDERED: Propofol 200 MG/20 ML SDV ONE ×2 (08:51→11:29)
[2023-08-01] MEDS ORDERED: fentaNYL 100 MCG/2 ML SDV ONE ×3 (08:51→15:12)
[2023-08-01 09:01] LABS: INR 1.1; PROTHROMBIN TIME 11.2 sec (9.2-10.6)
[2023-08-01 09:11] LABS: A/G RATIO 0.8 (1.2-2.2); ALANINE AMINOTRANSFERASE,ALT 30 U/L (12-78); ALBUMIN 3.5 g/dL (3.4-5.0); ALKALINE PHOSPHATASE 92 U/L (46-116); ASPARTATE AMNIOTRANSFERASE,AST 32 U/L (15-37); BILIRUBIN TOTAL 0.4 mg/dL (0.2-1.0); BLOOD UREA NITROGEN,BUN 31 mg/dL (7-18); CALCIUM 9.3 mg/dL (8.5-10.1); CARBON DIOXIDE,CO2 28 mmol/L (21-32); CHLORIDE,CL 103 mmol/L (100-108); CREATININE 0.9 mg/dL (0.8-1.3); EST CRCL DRUG DOSING (CG) 72.75 mL/min; ESTIMATED GFR 86 mL/min (>60); GLUCOSE RANDOM 100 mg/dL (74-106); POTASSIUM,K 4.1 mmol/L (3.6-5.2); PROTEIN TOTAL,TP 7.8 g/dL (6.4-8.2); SODIUM,NA 139 mmol/L (140-148)
[2023-08-01] MEDS: Nozin Nasal Sanitizer NASBOTH SCH (09:36)
[2023-08-01 10:22] LABS: ANION GAP 12.1 mmol/L (5.0-14.0)
[2023-08-01] MEDS: Lactated Ringers 1,000 ML IV SCH (10:22)
[2023-08-01] MEDS ORDERED: fentaNYL 250 MCG/5 ML SDV ONE (11:28)
[2023-08-01] MEDS ORDERED: Glycopyrrolate 0.2 MG/ML 5 ML MDV ONE (11:29)
[2023-08-01] MEDS ORDERED: Rocuronium 50 MG/5 ML Vial ONE ×2 (11:29→13:14)
[2023-08-01] MEDS ORDERED: Neostigmine Methylsulfate 10 MG/10 ML MDV ONE (11:29)
[2023-08-01] MEDS ORDERED: Dexamethasone 4 MG/ML SDV ONE (11:29)
[2023-08-01] MEDS ORDERED: Succinylcholine 200 MG/10 ML MDV ONE (11:29)
[2023-08-01] MEDS ORDERED: Ondansetron 4 MG/2 ML SDV ONE (11:29)
[2023-08-01] MEDS: Tranexamic Acid 850 MG in Sodium Chloride 0.9% 50 ML IV ONE (11:55)
[2023-08-01] MEDS ORDERED: Labetalol 20 MG/4 ML Syringe ONE (14:17)
[2023-08-01] MEDS ORDERED: Lactated Ringers 1,000 ML ONE (14:18)
[2023-08-01] MEDS ORDERED: Phenylephrine 1% 10 MG/ML SDV ONE (14:29)
[2023-08-01] MEDS: Bupivacaine 0.5% 30 ML SDV ONE (16:47)
[2023-08-01] MEDS: Acetaminophen 325 MG Tab PO SCH (16:54)
[2023-08-01] MEDS: Ketorolac 15 MG/ML SDV IVPUSH PRN (18:24)
[2023-08-01] MEDS: oxyCODONE 5 MG Tab PO PRN (19:46)
[2023-08-01] MEDS: Sodium Chloride 0.9% 1,000 ML IV SCH (19:46)
[2023-08-01] MEDS ORDERED: Nozin Nasal Sanitizer NASBOTH SCH (21:00)
[2023-08-01] MEDS: atorvaSTATin 10 MG Tab PO SCH (22:21)
[2023-08-01] MEDS: Amitriptyline 25 MG Tab PO SCH (22:22)
[2023-08-02 05:16] LABS: HEMATOCRIT 22.8 % (38.4-49.7); HEMOGLOBIN 7.6 g/dL (12.9-16.9)
[2023-08-02] MEDS: Vitamin B Complex Tab PO SCH (08:33)
[2023-08-02] MEDS: Ferrous Sulfate 325 MG Tab PO SCH (08:33)
[2023-08-02] MEDS: Multivitamins with Iron/Calcium/Folic Acid/Minerals Tab PO SCH (08:33)
[2023-08-02] MEDS: Calcium Carbonate/Vitamin D3 1500 MG-400 Units Tab PO SCH (08:33)
[2023-08-02] MEDS: Furosemide 40 MG Tab PO SCH (08:34)
[2023-08-02] MEDS: Vitamin A 10,000 Unit Cap PO SCH (08:34)
[2023-08-02] MEDS: Cyanocobalamin (Vitamin B12) 1,000 MCG Tab PO SCH (08:34)
[2023-08-02] MEDS: Citalopram 20 MG Tab PO SCH (08:34)
[2023-08-02] MEDS: Magnesium Oxide 400 MG Tab PO SCH (08:34)
[2023-08-02] MEDS: Zinc Sulfate 220 MG Cap PO SCH (08:34)
[2023-08-02] MEDS: Cholecalciferol (Vitamin D3) 25 MCG Tab PO SCH (08:35)
[2023-08-02] MEDS: Apixaban 5 MG Tab PO SCH (09:46)
[2023-08-02] MEDS: Vancomycin 1 GM SDV ONE (11:02)
[2023-08-02 11:22] LABS: BASOPHILS ABSOLUTE AUTO 0.02 K/uL (0.00-0.10); BASOPHILS PERCENT AUTO 0.3 % (0.1-1.3); EOSINOPHILS ABSOLUTE AUTO 0.09 K/uL (0.00-0.40); EOSINOPHILS PERCENT AUTO 1.4 % (0.0-5.4); HEMATOCRIT 25.4 % (38.4-49.7); HEMOGLOBIN 8.4 g/dL (12.9-16.9); IMMATURE GRAN ABSOLUTE AUTO 0.02 K/uL (0.00-0.23); IMMATURE GRAN PERCENT AUTO 0.3 % (0.0-0.7); LYMPHOCYTES ABSOLUTE AUTO 0.61 K/uL (0.8-3.3); LYMPHOCYTES PERCENT AUTO 9.3 % (11.4-47.7); MEAN CORPUSCULAR HEMOGLOBIN 31.2 pg (31.6-35.5); MEAN CORPUSCULAR HGB CONC 33.1 g/dL (31.6-35.5); MEAN CORPUSCULAR VOLUME 94.4 fL (81.4-99.0); MONOCYTES ABSOLUTE AUTO 0.51 K/uL (0.20-0.90); MONOCYTES PERCENT AUTO 7.7 % (3.3-12.6); NEUTROPHILS ABSOLUTE AUTO 5.34 K/uL (1.0-7.6); PLATELET COUNT,PLT 115 K/uL (130-375); RED BLOOD CELL COUNT 2.69 M/uL (4.14-5.76); WHITE BLOOD CELL COUNT,WBC 6.6 K/uL (3.2-11.0)
[2023-08-02] MEDS: Metoprolol Succinate 50 MG Tab.ER PO SCH (21:06)
[2023-08-03 04:37] LABS: CREATININE 0.7 mg/dL (0.8-1.3); EST CRCL DRUG DOSING (CG) 93.09 mL/min; VANCOMYCIN RANDOM 18.1 ug/mL (0.0-50.0)
[2023-08-03] MEDS: Magnesium Hydroxide 400 MG/5 ML Susp 30 ML Cup PO PRN (08:12)
[2023-08-03] MEDS: Aspirin 81 MG Tab.EC PO SCH (11:55)
[2023-08-03] MEDS: Povidone-Iodine 10% Soln 118.25 ML Bottle TOP PRN (11:56)
[2023-08-04] MEDS: PHYTONADIONE 100 MCG PO SCH (12:10)
[2023-08-04] MEDS: Docusate Sodium 100 MG Cap PO PRN (17:13)
[2023-08-04] MEDS ORDERED: Sodium Chloride 0.9% 250 ML IV SCH (20:45)
[2023-08-04] MEDS: Sodium Chloride 0.9% 250 ML IV SCH (20:47)
[2023-08-05] MEDS: Ondansetron 4 MG/2 ML SDV IVPUSH PRN (12:34)
[2023-08-05] MEDS: oxyCODONE 5 MG Tab PO PRN (14:02)
[2023-08-05 14:42] LABS: MAGNESIUM 1.8 mg/dL (1.8-2.4); PHOSPHORUS 3.1 mg/dL (2.5-4.9)
[2023-08-05 14:43] LABS: IRON,FE 18 ug/dL (65-175); PERCENT FE SATURATION 13 % (20-55); TOTAL IRON BINDING CAPACITY 143 ug/dl (250-450)
[2023-08-05] MEDS: Pantoprazole 40 MG Tab.CR PO SCH ×2 (16:03→17:57)
[2023-08-05] MEDS: Rifampin 150 MG Cap PO SCH (21:07)
[2023-08-06] MEDS: Docusate Sodium 100 MG Cap PO SCH (08:43)
[2023-08-06] MEDS: Bisacodyl 10 MG Supp RECTAL ONE (13:38)
[2023-08-06] MEDS: Sodium Ferric Gluconate Cmplex 125 MG in Sodium Chloride 0.9% 100 ML IV SCH (13:44)
[2023-08-06] MEDS ORDERED: Polyethylene Glycol 3350 Powder 17 GM Packet PO PRN (15:18)
[2023-08-06] MEDS: Morphine 2 MG/ML SYRINGE IVPUSH PRN (23:11)
[2023-08-08] MEDS: Sennosides/Docusate Sodium 50-8.6 MG Tab PO PRN (08:00)
[2023-08-08 11:12] VITALS: BP 91/49; PULSE 88
[2023-08-08] MEDS ORDERED: Ciprofloxacin 500 MG Tab PO SCH (21:00)
== END 2023-08-08 17:38 | disposition home health service (06) | DRG 467 ==
LOC: JP.SDS 08:10 → JP.MS 11:47 → JP.SDS 08-02 08:08 → JP.MS 08-02 08:08
PROVIDERS: ADMIT Specialist; ATTEND Specialist
PROC: 0SRC0J9 Replacement of Right Knee Joint with Synthetic Substitute, Cemented, Open Approach (ICD-10-PCS; 2023-08-01)
PROC: 0S9C0ZZ Drainage of Right Knee Joint, Open Approach (ICD-10-PCS; 2023-08-01)
PROC: 0SPC0JZ Removal of Synthetic Substitute from Right Knee Joint, Open Approach (ICD-10-PCS; principal; 2023-08-01 10:00)
PROC: 30233N1 Transfusion of Nonautologous Red Blood Cells into Peripheral Vein, Percutaneous Approach (ICD-10-PCS; 2023-08-02)
PROC: 30233N1 Transfusion of Nonautologous Red Blood Cells into Peripheral Vein, Percutaneous Approach (ICD-10-PCS; 2023-08-06)
DX: T84.53XA Infection and inflammatory reaction due to internal right knee prosthesis, initial encounter (principal); D62 Acute posthemorrhagic anemia; M00.861 Arthritis due to other bacteria, right knee; I10 Essential (primary) hypertension; H54.7 Unspecified visual loss; I48.91 Unspecified atrial fibrillation; K21.9 Gastro-esophageal reflux disease without esophagitis; M19.90 Unspecified osteoarthritis, unspecified site; M54.2 Cervicalgia; G89.29 Other chronic pain; F32.A Depression, unspecified; E66.9 Obesity, unspecified; D69.6 Thrombocytopenia, unspecified; D50.9 Iron deficiency anemia, unspecified; E78.5 Hyperlipidemia, unspecified; Z88.1 Allergy status to other antibiotic agents; Z88.8 Allergy status to other drugs, medicaments and biological substances; Z79.899 Other long term (current) drug therapy; Z87.442 Personal history of urinary calculi; Z68.24 Body mass index [BMI] 24.0-24.9, adult; Z98.49 Cataract extraction status, unspecified eye; Z98.890 Other specified postprocedural states; Z98.84 Bariatric surgery status; Z90.49 Acquired absence of other specified parts of digestive tract; Z98.1 Arthrodesis status; Z87.891 Personal history of nicotine dependence; Z79.01 Long term (current) use of anticoagulants; Z79.82 Long term (current) use of aspirin
CPT/HCPCS: 01402-QZ; 36415; 36430; 73560-26-RT; 73560-RT; 80053; 80202; 82565; 83550; 83735; 84100; 84443; 85014; 85018; 85025; 85027; 85610; 85651; 86140; 86850; 86900; 86901; 86920; 86922; 87070; 87075; 87205; 93005; 93010; 97110-GP; 97161-GP; 97165-GO; 97530-GP; 99231; 99232; A9270-GY; C1713; C1776; J0330; J0665; J1100; J1885; J1920; J2270; J2371; J2405; J2704; J2710; J2916; J3010; J3370; J3490; J7030; J7050; J7120; P9016

== ENCOUNTER 2023-08-13 16:10 | Inpatient (IN) | payer MEDICARE, BC ==
[2023-08-13] MEDS: Acetaminophen/oxyCODONE 325-5 MG Tab PO ONE (19:00)
[2023-08-13 20:46] LABS: BASOPHILS ABSOLUTE AUTO 0.03 K/uL (0.00-0.10); BASOPHILS PERCENT AUTO 0.5 % (0.1-1.3); EOSINOPHILS ABSOLUTE AUTO 0.32 K/uL (0.00-0.40); HEMATOCRIT 29.4 % (38.4-49.7); HEMOGLOBIN 9.6 g/dL (12.9-16.9); IMMATURE GRAN PERCENT AUTO 0.3 % (0.0-0.7); LYMPHOCYTES ABSOLUTE AUTO 0.85 K/uL (0.8-3.3); LYMPHOCYTES PERCENT AUTO 13.3 % (11.4-47.7); MEAN CORPUSCULAR HEMOGLOBIN 31.1 pg (31.6-35.5); MEAN CORPUSCULAR HGB CONC 32.7 g/dL (31.6-35.5); MEAN CORPUSCULAR VOLUME 95.1 fL (81.4-99.0); MONOCYTES ABSOLUTE AUTO 0.42 K/uL (0.20-0.90); MONOCYTES PERCENT AUTO 6.6 % (3.3-12.6); NEUTROPHILS ABSOLUTE AUTO 4.76 K/uL (1.0-7.6); NEUTROPHILS PERCENT AUTO 74.3 % (40.0-78.1); PLATELET COUNT,PLT 194 K/uL (130-375); RED BLOOD CELL COUNT 3.09 M/uL (4.14-5.76); WHITE BLOOD CELL COUNT,WBC 6.4 K/uL (3.2-11.0)
[2023-08-13 20:47] LABS: IMMATURE GRAN ABSOLUTE AUTO 0.02 K/uL (0.00-0.23)
[2023-08-13] MEDS ORDERED: Ondansetron 4 MG/2 ML SDV IV PRN (20:59)
[2023-08-13] MEDS ORDERED: Morphine 2 MG/ML SYRINGE IVPUSH PRN (20:59)
[2023-08-13] MEDS ORDERED: Naloxone 0.4 MG/ML SDV IVPUSH PRN (20:59)
[2023-08-13] MEDS ORDERED: Ondansetron 4 MG Tab.DIS PO PRN (20:59)
[2023-08-13] MEDS ORDERED: Acetaminophen 325 MG Tab PO PRN (20:59)
[2023-08-13 21:06] LABS: A/G RATIO 0.8 (1.2-2.2); ALANINE AMINOTRANSFERASE,ALT 23 U/L (12-78); ALKALINE PHOSPHATASE 112 U/L (46-116); AMYLASE 48 U/L (25-115); ASPARTATE AMNIOTRANSFERASE,AST 40 U/L (15-37); BILIRUBIN TOTAL 0.4 mg/dL (0.2-1.0); BLOOD UREA NITROGEN,BUN 26 mg/dL (7-18); CALCIUM 9.1 mg/dL (8.5-10.1); CARBON DIOXIDE,CO2 30 mmol/L (21-32); CHLORIDE,CL 100 mmol/L (100-108); EST CRCL DRUG DOSING (CG) 65.47 mL/min; ESTIMATED GFR 76 mL/min (>60); GLUCOSE RANDOM 102 mg/dL (74-106); MAGNESIUM 2.2 mg/dL (1.8-2.4); PROTEIN TOTAL,TP 6.9 g/dL (6.4-8.2); SODIUM,NA 136 mmol/L (140-148)
[2023-08-13] MEDS: Acetaminophen/oxyCODONE 325-5 MG Tab PO PRN (22:19)
[2023-08-13] MEDS: Furosemide 20 MG Tab PO SCH (22:20)
[2023-08-13] MEDS: Docusate Sodium 100 MG Cap PO SCH (22:20)
[2023-08-13] MEDS: Meropenem 1 GM in Sodium Chloride 0.9% 100 ML IV SCH (22:21)
[2023-08-13] MEDS: Apixaban 5 MG Tab PO SCH (22:21)
[2023-08-13] MEDS: Metoprolol Succinate 25 MG Tab.ER PO SCH (22:21)
[2023-08-13] MEDS: Sodium Chloride 0.9% 1,000 ML IV SCH (22:21)
[2023-08-13] MEDS: Amitriptyline 25 MG Tab PO SCH (22:23)
[2023-08-13 22:34] LABS: APPEARANCE,URINE CLEAR (CLEAR); BILIRUBIN,URINE NEGATIVE (NEGATIVE); COLOR,URINE YELLOW (YELLOW); GLUCOSE,URINE NEGATIVE (NEGATIVE); KETONES,URINE NEGATIVE (NEGATIVE); LEUKOCYTE ESTERASE,URINE NEGATIVE (NEGATIVE); NITRITE,URINE NEGATIVE (NEGATIVE); OCCULT BLOOD,URINE NEGATIVE (NEGATIVE); PH,URINE 6.5 (5.0-8.0); PROTEIN,URINE NEGATIVE (NEGATIVE); UROBILINOGEN,URINE 0.2 EU/dL (0.2-1.0)
[2023-08-13 22:41] LABS: AMORPHOUS SEDIMENT,URINE NOT SEEN; BACTERIA,URINE RARE; EPITHELIAL CELLS,URINE NOT SEEN; MUCUS,URINE NOT SEEN; RBC,URINE 0-5 (0-5); WBC,URINE 0-5 (0-5)
[2023-08-13] MEDS: Non-Formulary Medication 1 Each (Simvastatin [Zocor] 40 MG Tablet) PO SCH (22:50)
[2023-08-14 04:53] LABS: BASOPHILS ABSOLUTE AUTO 0.03 K/uL (0.00-0.10); BASOPHILS PERCENT AUTO 0.6 % (0.1-1.3); EOSINOPHILS ABSOLUTE AUTO 0.54 K/uL (0.00-0.40); HEMATOCRIT 25.9 % (38.4-49.7); HEMOGLOBIN 8.4 g/dL (12.9-16.9); IMMATURE GRAN PERCENT AUTO 0.2 % (0.0-0.7); LYMPHOCYTES ABSOLUTE AUTO 0.86 K/uL (0.8-3.3); LYMPHOCYTES PERCENT AUTO 17.6 % (11.4-47.7); MEAN CORPUSCULAR HEMOGLOBIN 30.5 pg (31.6-35.5); MEAN CORPUSCULAR HGB CONC 32.4 g/dL (31.6-35.5); MEAN CORPUSCULAR VOLUME 94.2 fL (81.4-99.0); MONOCYTES ABSOLUTE AUTO 0.43 K/uL (0.20-0.90); MONOCYTES PERCENT AUTO 8.8 % (3.3-12.6); NEUTROPHILS ABSOLUTE AUTO 3.03 K/uL (1.0-7.6); NEUTROPHILS PERCENT AUTO 61.8 % (40.0-78.1); PLATELET COUNT,PLT 149 K/uL (130-375); RED BLOOD CELL COUNT 2.75 M/uL (4.14-5.76); WHITE BLOOD CELL COUNT,WBC 4.9 K/uL (3.2-11.0)
[2023-08-14 05:12] LABS: IMMATURE GRAN ABSOLUTE AUTO 0.01 K/uL (0.00-0.23)
[2023-08-14 05:16] LABS: CALCIUM 8.7 mg/dL (8.5-10.1); CREATININE 0.9 mg/dL (0.8-1.3); EST CRCL DRUG DOSING (CG) 74.84 mL/min; POTASSIUM,K 5.1 mmol/L (3.6-5.2)
[2023-08-14 05:20] LABS: ANION GAP 8.1 mmol/L (5.0-14.0)
[2023-08-14] MEDS: Citalopram 20 MG Tab PO SCH (08:47)
[2023-08-14] MEDS: Ferrous Sulfate 325 MG Tab PO SCH (08:47)
[2023-08-14] MEDS: Calcium Carbonate/Vitamin D3 1500 MG-400 Units Tab PO SCH (08:47)
[2023-08-14] MEDS: Cholecalciferol (Vitamin D3) 25 MCG Tab PO SCH (08:48)
[2023-08-14] MEDS: Magnesium Oxide 400 MG Tab PO SCH (08:48)
[2023-08-14] MEDS: Furosemide 40 MG Tab PO SCH (08:48)
[2023-08-14] MEDS: Zinc Sulfate 220 MG Cap PO SCH (08:48)
[2023-08-14] MEDS: Vitamin A 10,000 Unit Cap PO SCH (08:49)
[2023-08-14] MEDS: Cyanocobalamin (Vitamin B12) 1,000 MCG Tab PO SCH (08:49)
[2023-08-14] MEDS: Multivitamins with Iron/Calcium/Folic Acid/Minerals Tab PO SCH (08:49)
[2023-08-14] MEDS: Vitamin B Complex Tab PO SCH (08:49)
[2023-08-14] MEDS: atorvaSTATin 10 MG Tab PO SCH (20:22)
[2023-08-14] MEDS: Metoprolol Succinate 50 MG Tab.ER PO SCH (20:22)
[2023-08-15 05:02] LABS: HEMOGLOBIN 8.5 g/dL (12.9-16.9); MEAN CORPUSCULAR HEMOGLOBIN 30.9 pg (31.6-35.5); MEAN CORPUSCULAR HGB CONC 32.7 g/dL (31.6-35.5); MEAN CORPUSCULAR VOLUME 94.5 fL (81.4-99.0); RED BLOOD CELL COUNT 2.75 M/uL (4.14-5.76); WHITE BLOOD CELL COUNT,WBC 4.6 K/uL (3.2-11.0)
[2023-08-15] MEDS ORDERED: PHYTONADIONE 100 MCG PO SCH (09:00)
[2023-08-15] MEDS ORDERED: fentaNYL 250 MCG/5 ML SDV ONE (11:16)
[2023-08-15] MEDS ORDERED: Ondansetron 4 MG/2 ML SDV ONE (11:18)
[2023-08-15] MEDS ORDERED: Glycopyrrolate 0.2 MG/ML 5 ML MDV ONE (11:18)
[2023-08-15] MEDS ORDERED: Dexamethasone 4 MG/ML SDV ONE (11:18)
[2023-08-15] MEDS ORDERED: Neostigmine Methylsulfate 10 MG/10 ML MDV ONE (11:18)
[2023-08-15] MEDS ORDERED: Propofol 200 MG/20 ML SDV ONE (11:18)
[2023-08-15] MEDS ORDERED: Rocuronium 50 MG/5 ML Vial ONE (11:18)
[2023-08-15] MEDS ORDERED: Succinylcholine 200 MG/10 ML MDV ONE (11:33)
[2023-08-15] MEDS ORDERED: Lactated Ringers 1,000 ML ONE (12:03)
[2023-08-15] MEDS: Rifampin 150 MG Cap PO SCH (20:49)
[2023-08-16] MEDS ORDERED: Povidone-Iodine 10% Soln 118.25 ML Bottle TOP PRN (12:22)
[2023-08-16] MEDS ORDERED: Sodium Phosphate,Monobasic/Sodium Phosphate,Dibasic Enema 133 ML Bottle RECTAL PRN (14:11)
[2023-08-16] MEDS: Polyethylene Glycol 3350 Powder 17 GM Packet PO ONE (14:53)
[2023-08-16] MEDS: Bisacodyl 10 MG Supp RECTAL ONE (14:53)
[2023-08-17 06:28] LABS: HEMOGLOBIN 7.9 g/dL (12.9-16.9); MEAN CORPUSCULAR HEMOGLOBIN 30.9 pg (31.6-35.5); MEAN CORPUSCULAR HGB CONC 32.9 g/dL (31.6-35.5); MEAN CORPUSCULAR VOLUME 93.8 fL (81.4-99.0); RED BLOOD CELL COUNT 2.56 M/uL (4.14-5.76); WHITE BLOOD CELL COUNT,WBC 5.5 K/uL (3.2-11.0)
[2023-08-17 06:29] LABS: POTASSIUM,K 4.7 mmol/L (3.6-5.2)
[2023-08-17 06:30] LABS: ANION GAP 8.7 mmol/L (5.0-14.0); CALCIUM 8.4 mg/dL (8.5-10.1); CREATININE 0.8 mg/dL (0.8-1.3); EST CRCL DRUG DOSING (CG) 84.2 mL/min
[2023-08-18 10:48] VITALS: BP 109/63; PULSE 91
== END 2023-08-18 12:58 | DRG 488 ==
LOC: JP.ED 16:10 → JP.MS 20:27
PROVIDERS: ADMIT Internal Medicine; ATTEND Hospitalist
PROC: 0SCC0ZZ Extirpation of Matter from Right Knee Joint, Open Approach (ICD-10-PCS; 2023-08-15)
PROC: 0SQC0ZZ Repair Right Knee Joint, Open Approach (ICD-10-PCS; principal; 2023-08-15 11:30)
DX: M25.561 Pain in right knee (principal); I48.91 Unspecified atrial fibrillation; T84.84XA Pain due to internal orthopedic prosthetic devices, implants and grafts, initial encounter; L02.212 Cutaneous abscess of back [any part, except buttock and flank]; T84.7XXD Infection and inflammatory reaction due to other internal orthopedic prosthetic devices, implants and grafts, subsequent encounter; S83.411A Sprain of medial collateral ligament of right knee, initial encounter; H54.7 Unspecified visual loss; Z88.1 Allergy status to other antibiotic agents; Z88.6 Allergy status to analgesic agent; Z96.651 Presence of right artificial knee joint; K21.9 Gastro-esophageal reflux disease without esophagitis; M19.90 Unspecified osteoarthritis, unspecified site; G89.29 Other chronic pain; M54.2 Cervicalgia; F32.A Depression, unspecified; E66.9 Obesity, unspecified; I48.0 Paroxysmal atrial fibrillation; Z66 Do not resuscitate; K59.00 Constipation, unspecified; Z88.2 Allergy status to sulfonamides; Z88.8 Allergy status to other drugs, medicaments and biological substances; Z79.899 Other long term (current) drug therapy; Z79.01 Long term (current) use of anticoagulants; Z87.442 Personal history of urinary calculi; Z68.24 Body mass index [BMI] 24.0-24.9, adult; Z98.49 Cataract extraction status, unspecified eye; Z98.890 Other specified postprocedural states; Z98.1 Arthrodesis status; Z90.49 Acquired absence of other specified parts of digestive tract; Z98.84 Bariatric surgery status; Z87.891 Personal history of nicotine dependence; W19.XXXA Unspecified fall, initial encounter
CPT/HCPCS: 36415; 73562; 87070; 87205; 99285; A9270; 01320-QZ; 80048; 80053; 80202; 81001; 82150; 83605; 83690; 83735; 84145; 85025; 85027; 86140; 87040; 87075; 87077; 87186; 97110-GP; 97116-GP; 97161-GP; 97165-GO; 99222; 99231; 99238; J0330; J1100; J2185; J2405; J2704; J2710; J3010; J3370; J3490; J7030; J7050; J7120

== ENCOUNTER 2023-08-29 12:59 | Inpatient (IN) | payer MEDICARE, BC ==
[2023-08-29 13:40] LABS: HEMATOCRIT 29.5 % (38.4-49.7); HEMOGLOBIN 9.6 g/dL (12.9-16.9); MEAN CORPUSCULAR HEMOGLOBIN 30.6 pg (31.6-35.5); MEAN CORPUSCULAR HGB CONC 32.5 g/dL (31.6-35.5); MEAN CORPUSCULAR VOLUME 93.9 fL (81.4-99.0); RED BLOOD CELL COUNT 3.14 M/uL (4.14-5.76); WHITE BLOOD CELL COUNT,WBC 6.4 K/uL (3.2-11.0)
[2023-08-29] MEDS: Lactated Ringers 1,000 ML IV SCH (13:49)
[2023-08-29] MEDS: Nozin Nasal Sanitizer NASBOTH SCH ×2 (13:52→20:28)
[2023-08-29 13:57] LABS: INR 1.2; PROTHROMBIN TIME 12.3 sec (9.2-10.6)
[2023-08-29 14:01] LABS: A/G RATIO 0.6 (1.2-2.2); ALANINE AMINOTRANSFERASE,ALT 13 U/L (12-78); ALBUMIN 2.4 g/dL (3.4-5.0); ALKALINE PHOSPHATASE 148 U/L (46-116); ASPARTATE AMNIOTRANSFERASE,AST 22 U/L (15-37); BILIRUBIN TOTAL 0.7 mg/dL (0.2-1.0); BLOOD UREA NITROGEN,BUN 31 mg/dL (7-18); CALCIUM 8.6 mg/dL (8.5-10.1); CARBON DIOXIDE,CO2 28 mmol/L (21-32); CHLORIDE,CL 100 mmol/L (100-108); ESTIMATED GFR 76 mL/min (>60); GLUCOSE RANDOM 121 mg/dL (74-106); POTASSIUM,K 4.2 mmol/L (3.6-5.2); PROTEIN TOTAL,TP 6.4 g/dL (6.4-8.2); SODIUM,NA 135 mmol/L (140-148)
[2023-08-29 14:04] LABS: ANION GAP 11.2 mmol/L (5.0-14.0)
[2023-08-29] MEDS ORDERED: fentaNYL 250 MCG/5 ML SDV ONE (15:35)
[2023-08-29] MEDS ORDERED: Glycopyrrolate 0.2 MG/ML 5 ML MDV ONE (15:36)
[2023-08-29] MEDS ORDERED: Ondansetron 4 MG/2 ML SDV ONE (15:36)
[2023-08-29] MEDS ORDERED: Neostigmine Methylsulfate 10 MG/10 ML MDV ONE (15:36)
[2023-08-29] MEDS ORDERED: Dexamethasone 4 MG/ML SDV ONE (15:36)
[2023-08-29] MEDS ORDERED: Propofol 200 MG/20 ML SDV ONE (15:36)
[2023-08-29] MEDS ORDERED: Succinylcholine 200 MG/10 ML MDV ONE (15:36)
[2023-08-29] MEDS ORDERED: Rocuronium 50 MG/5 ML Vial ONE (15:36)
[2023-08-29] MEDS: ceFAZolin 2 GM in Premix Bag 1 BAG IV ONE (15:42)
[2023-08-29] MEDS ORDERED: Lactated Ringers 1,000 ML ONE (16:27)
[2023-08-29] MEDS ORDERED: Ketorolac 30 MG/ML SDV IVPUSH PRN (18:45)
[2023-08-29] MEDS ORDERED: Morphine 2 MG/ML SYRINGE IVPUSH PRN (18:45)
[2023-08-29] MEDS ORDERED: Docusate Sodium 100 MG Cap PO PRN (18:45)
[2023-08-29] MEDS ORDERED: Magnesium Hydroxide 400 MG/5 ML Susp 30 ML Cup PO PRN (18:45)
[2023-08-29] MEDS ORDERED: Ondansetron 4 MG/2 ML SDV IVPUSH PRN (18:45)
[2023-08-29 19:10] LABS: HEMATOCRIT 26.5 % (38.4-49.7); HEMOGLOBIN 8.8 g/dL (12.9-16.9); MEAN CORPUSCULAR HEMOGLOBIN 30.2 pg (31.6-35.5); MEAN CORPUSCULAR HGB CONC 33.2 g/dL (31.6-35.5); MEAN CORPUSCULAR VOLUME 91.1 fL (81.4-99.0); RED BLOOD CELL COUNT 2.91 M/uL (4.14-5.76); WHITE BLOOD CELL COUNT,WBC 7.8 K/uL (3.2-11.0)
[2023-08-29] MEDS: oxyCODONE 5 MG Tab PO PRN (19:46)
[2023-08-29] MEDS: Acetaminophen 325 MG Tab PO SCH (20:07)
[2023-08-29] MEDS: atorvaSTATin 10 MG Tab PO SCH (20:07)
[2023-08-29] MEDS: Amitriptyline 25 MG Tab PO SCH (20:07)
[2023-08-29] MEDS: Docusate Sodium 100 MG Cap PO SCH (20:07)
[2023-08-29] MEDS: Metoprolol Succinate 50 MG Tab.ER PO SCH (20:08)
[2023-08-29] MEDS: Ferrous Sulfate 325 MG Tab PO SCH (20:13)
[2023-08-29] MEDS: Sennosides 8.6 MG Tab PO SCH (20:13)
[2023-08-29] MEDS: Celecoxib 200 MG Cap PO SCH (20:27)
[2023-08-29] MEDS: Rifampin 150 MG Cap PO SCH (20:32)
[2023-08-29] MEDS ORDERED: Apixaban 5 MG Tab PO SCH (21:00)
[2023-08-29] MEDS: Levofloxacin 250 MG Tab PO SCH (22:34)
[2023-08-29] MEDS: Ketorolac 30 MG/ML SDV IVPUSH PRN (23:28)
[2023-08-30] MEDS: ceFAZolin 2 GM in Sodium Chloride 0.9% 100 ML IV SCH (00:01)
[2023-08-30] MEDS: Sodium Chloride 0.9% 500 ML IV ONE ×3 (00:21→12:10)
[2023-08-30] MEDS: Norepinephrine Bit/D5W Premix 4 MG in Premix Bag 1 BAG IV SCH (04:43)
[2023-08-30] MEDS: propofoL 100 ML ONE (04:43)
[2023-08-30] MEDS: Sodium Chloride 0.9% 1,000 ML IV SCH (04:46)
[2023-08-30] MEDS: Norepinephrine Bit/D5W Premix 250 ML ONE (04:47)
[2023-08-30] MEDS: Zinc Sulfate 220 MG Cap PO SCH (08:02)
[2023-08-30] MEDS: Citalopram 20 MG Tab PO SCH (08:02)
[2023-08-30] MEDS: Magnesium Oxide 400 MG Tab PO SCH ×2 (08:03→21:33)
[2023-08-30] MEDS: Furosemide 40 MG Tab PO SCH (08:04)
[2023-08-30] MEDS: ceFAZolin 2 GM in Premix Bag 1 BAG IV SCH (08:05)
[2023-08-30] MEDS: Diltiazem 25 MG/5 ML SDV IVPUSH ONE (08:36)
[2023-08-30 08:39] LABS: CALCIUM 7.9 mg/dL (8.5-10.1); CREATININE 1.1 mg/dL (0.8-1.3); EST CRCL DRUG DOSING (CG) 59.52 mL/min; MAGNESIUM 1.6 mg/dL (1.8-2.4); POTASSIUM,K 4.5 mmol/L (3.6-5.2)
[2023-08-30] MEDS: Diltiazem 100 MG in Sodium Chloride 0.9% 100 ML IV SCH (08:40)
[2023-08-30 08:41] LABS: ANION GAP 12.5 mmol/L (5.0-14.0)
[2023-08-30] MEDS ORDERED: Non-Formulary Medication 1 Each (Phytonadione [Vitamin K] 100 MCG Tablet) PO SCH (09:00)
[2023-08-30] MEDS: Ketorolac 15 MG/ML SDV IVPUSH PRN (12:41)
[2023-08-30] MEDS: Magnesium Sulfate/Water 2 GM in Premix Bag 1 BAG IV SCH (13:54)
[2023-08-31 04:59] LABS: HEMOGLOBIN 8.1 g/dL (12.9-16.9); MEAN CORPUSCULAR HGB CONC 33.8 g/dL (31.6-35.5); MEAN CORPUSCULAR VOLUME 88.9 fL (81.4-99.0); RED BLOOD CELL COUNT 2.7 M/uL (4.14-5.76)
[2023-08-31 05:16] LABS: CALCIUM 7.9 mg/dL (8.5-10.1); CREATININE 0.8 mg/dL (0.8-1.3); EST CRCL DRUG DOSING (CG) 81.84 mL/min; MAGNESIUM 2.3 mg/dL (1.8-2.4); POTASSIUM,K 4.6 mmol/L (3.6-5.2)
[2023-08-31 05:20] LABS: ANION GAP 11.6 mmol/L (5.0-14.0)
[2023-08-31] MEDS: Levofloxacin 250 MG Tab PO SCH (08:06)
[2023-08-31] MEDS: Sodium Chloride 0.9% 1,000 ML IV SCH (16:15)
[2023-09-01 05:07] LABS: HEMATOCRIT 22.6 % (38.4-49.7); HEMOGLOBIN 7.5 g/dL (12.9-16.9); MEAN CORPUSCULAR HEMOGLOBIN 29.9 pg (31.6-35.5); MEAN CORPUSCULAR HGB CONC 33.2 g/dL (31.6-35.5); RED BLOOD CELL COUNT 2.51 M/uL (4.14-5.76); WHITE BLOOD CELL COUNT,WBC 7.9 K/uL (3.2-11.0)
[2023-09-01 05:29] LABS: CALCIUM 7.8 mg/dL (8.5-10.1); CREATININE 0.7 mg/dL (0.8-1.3); EST CRCL DRUG DOSING (CG) 93.09 mL/min
[2023-09-01] MEDS ORDERED: Sodium Chloride 0.9% 1,000 ML IV SCH (11:45)
[2023-09-01] MEDS: Polyethylene Glycol 3350 Powder 17 GM Packet PO ONE (12:28)
[2023-09-02 04:38] LABS: HEMATOCRIT 22.7 % (38.4-49.7); HEMOGLOBIN 7.7 g/dL (12.9-16.9); MEAN CORPUSCULAR HEMOGLOBIN 30.3 pg (31.6-35.5); MEAN CORPUSCULAR HGB CONC 33.9 g/dL (31.6-35.5); MEAN CORPUSCULAR VOLUME 89.4 fL (81.4-99.0); RED BLOOD CELL COUNT 2.54 M/uL (4.14-5.76); WHITE BLOOD CELL COUNT,WBC 5.9 K/uL (3.2-11.0)
[2023-09-02 04:54] LABS: CALCIUM 7.8 mg/dL (8.5-10.1); CREATININE 0.7 mg/dL (0.8-1.3); EST CRCL DRUG DOSING (CG) 93.09 mL/min; POTASSIUM,K 4.5 mmol/L (3.6-5.2)
[2023-09-02 05:16] LABS: ANION GAP 8.5 mmol/L (5.0-14.0)
[2023-09-02] MEDS: Polyethylene Glycol 3350 Powder 17 GM Packet PO ONE (11:08)
[2023-09-02] MEDS: Digoxin 500 MCG/2 ML Amp IVPUSH ONE (11:08)
[2023-09-02] MEDS: Diltiazem IR 30 MG Tab PO SCH (11:08)
[2023-09-03 05:31] LABS: HEMATOCRIT 24.6 % (38.4-49.7); HEMOGLOBIN 8.4 g/dL (12.9-16.9); MEAN CORPUSCULAR HGB CONC 34.1 g/dL (31.6-35.5); MEAN CORPUSCULAR VOLUME 87.9 fL (81.4-99.0); RED BLOOD CELL COUNT 2.8 M/uL (4.14-5.76); WHITE BLOOD CELL COUNT,WBC 5.1 K/uL (3.2-11.0)
[2023-09-03 05:59] LABS: BLOOD UREA NITROGEN,BUN 15 mg/dL (7-18); CALCIUM 7.3 mg/dL (8.5-10.1); CARBON DIOXIDE,CO2 25 mmol/L (21-32); CHLORIDE,CL 102 mmol/L (100-108); CREATININE 0.7 mg/dL (0.8-1.3); EST CRCL DRUG DOSING (CG) 93.09 mL/min; ESTIMATED GFR 93 mL/min (>60); GLUCOSE RANDOM 83 mg/dL (74-106); POTASSIUM,K 4.1 mmol/L (3.6-5.2); SODIUM,NA 132 mmol/L (140-148)
[2023-09-03 06:01] LABS: ANION GAP 9.1 mmol/L (5.0-14.0); DIGOXIN < 0.20 ng/mL (0.90-2.00)
[2023-09-03] MEDS: Digoxin 500 MCG/2 ML Amp IVPUSH ONE (08:33)
[2023-09-03] MEDS: Polyethylene Glycol 3350 Powder 17 GM Packet PO SCH (12:10)
[2023-09-03] MEDS: Metoprolol Tartrate 25 MG Tab PO SCH (12:10)
[2023-09-03] MEDS: Diltiazem 120 MG Cap.CD PO SCH (12:11)
[2023-09-04 06:03] LABS: HEMATOCRIT 26.5 % (38.4-49.7); HEMOGLOBIN 8.9 g/dL (12.9-16.9); MEAN CORPUSCULAR HGB CONC 33.6 g/dL (31.6-35.5); MEAN CORPUSCULAR VOLUME 89.2 fL (81.4-99.0); RED BLOOD CELL COUNT 2.97 M/uL (4.14-5.76); WHITE BLOOD CELL COUNT,WBC 4.9 K/uL (3.2-11.0)
[2023-09-04 06:23] LABS: CALCIUM 7.8 mg/dL (8.5-10.1); CREATININE 0.7 mg/dL (0.8-1.3); DIGOXIN 0.51 ng/mL (0.90-2.00); EST CRCL DRUG DOSING (CG) 93.09 mL/min; POTASSIUM,K 4.7 mmol/L (3.6-5.2)
[2023-09-04 06:29] LABS: ANION GAP 11.7 mmol/L (5.0-14.0)
[2023-09-04] MEDS ORDERED: Diltiazem 120 MG Cap.CD PO SCH (09:00)
[2023-09-04] MEDS: Digoxin 500 MCG/2 ML Amp IVPUSH ONE (09:37)
[2023-09-04] MEDS: Metoprolol Tartrate 25 MG Tab PO SCH ×2 (10:46→11:17)
[2023-09-05 05:22] LABS: HEMATOCRIT 25.1 % (38.4-49.7); HEMOGLOBIN 8.4 g/dL (12.9-16.9); MEAN CORPUSCULAR HEMOGLOBIN 29.9 pg (31.6-35.5); MEAN CORPUSCULAR HGB CONC 33.5 g/dL (31.6-35.5); MEAN CORPUSCULAR VOLUME 89.3 fL (81.4-99.0); RED BLOOD CELL COUNT 2.81 M/uL (4.14-5.76); WHITE BLOOD CELL COUNT,WBC 4.5 K/uL (3.2-11.0)
[2023-09-05 05:46] LABS: CALCIUM 7.4 mg/dL (8.5-10.1); CREATININE 0.7 mg/dL (0.8-1.3); DIGOXIN 0.63 ng/mL (0.90-2.00); EST CRCL DRUG DOSING (CG) 93.09 mL/min; POTASSIUM,K 4.3 mmol/L (3.6-5.2)
[2023-09-05 05:49] LABS: ANION GAP 9.3 mmol/L (5.0-14.0)
[2023-09-05] MEDS ORDERED: Diltiazem 120 MG Cap.CD PO SCH (09:00)
[2023-09-05] MEDS: Diltiazem 120 MG Cap.CD PO SCH (10:41)
[2023-09-05] MEDS: Metoprolol Tartrate 25 MG Tab PO SCH (10:42)
[2023-09-05] MEDS: Digoxin 125 MCG Tab PO SCH (12:39)
[2023-09-06] MEDS: Metoprolol Tartrate 50 MG Tab PO SCH (10:06)
[2023-09-06] MEDS: Apixaban 5 MG Tab PO SCH (21:23)
[2023-09-07] MEDS: Metoprolol Succinate 50 MG Tab.ER PO SCH (08:35)
[2023-09-07 11:19] VITALS: BP 89/51; PULSE 70
== END 2023-09-07 12:45 | DRG 481 ==
LOC: JP.SDS 12:59 → JP.ICU 18:45 → JP.MS 09-05 14:38
PROVIDERS: ADMIT Specialist; ATTEND Specialist
PROC: 30233N1 Transfusion of Nonautologous Red Blood Cells into Peripheral Vein, Percutaneous Approach (ICD-10-PCS; 2023-08-29)
PROC: 0QS804Z Reposition Right Femoral Shaft with Internal Fixation Device, Open Approach (ICD-10-PCS; principal; 2023-08-29 11:15)
PROC: 3E033XZ Introduction of Vasopressor into Peripheral Vein, Percutaneous Approach (ICD-10-PCS; 2023-08-30)
PROC: 30233N1 Transfusion of Nonautologous Red Blood Cells into Peripheral Vein, Percutaneous Approach (ICD-10-PCS; 2023-08-31)
PROC: 30233N1 Transfusion of Nonautologous Red Blood Cells into Peripheral Vein, Percutaneous Approach (ICD-10-PCS; 2023-09-01)
PROC: 30233N1 Transfusion of Nonautologous Red Blood Cells into Peripheral Vein, Percutaneous Approach (ICD-10-PCS; 2023-09-02)
DX: M97.11XA Periprosthetic fracture around internal prosthetic right knee joint, initial encounter (principal); D62 Acute posthemorrhagic anemia; M00.9 Pyogenic arthritis, unspecified; I48.0 Paroxysmal atrial fibrillation; K21.9 Gastro-esophageal reflux disease without esophagitis; M19.90 Unspecified osteoarthritis, unspecified site; G89.29 Other chronic pain; M54.2 Cervicalgia; M54.9 Dorsalgia, unspecified; F32.A Depression, unspecified; I95.9 Hypotension, unspecified; I10 Essential (primary) hypertension; Z98.1 Arthrodesis status; Z98.49 Cataract extraction status, unspecified eye; Z88.1 Allergy status to other antibiotic agents; Z88.5 Allergy status to narcotic agent; Z90.49 Acquired absence of other specified parts of digestive tract; Z96.659 Presence of unspecified artificial knee joint; Z79.01 Long term (current) use of anticoagulants; Z79.899 Other long term (current) drug therapy
CPT/HCPCS: 01360-QZ; 36415; 36430; 73552-26-LT; 73552-RT; 73560-26-RT; 73560-RT; 80048; 80053; 80162; 83735; 85018; 85027; 85610; 85651; 86140; 86850; 86870; 86900; 86901; 86902; 86920; 86922; 86970; 93005; 93010; 97110-GP; 97163-GP; 97530-GP; 99232; 99239; A9270-GY; C1713; C1762; C1776; J0330; J0690; J1100; J1160; J1596; J1885; J2405; J2704; J2710; J3010; J3475; J3490; J7030; J7040; J7120; P9016